=== PATIENT | male | born 1950 ===

== ENCOUNTER 2019-12-04 16:01 | Inpatient (IN) | payer MEDICARE, MEDICAID ==
[~2019-12-04] VITALS: Ht 182.8 cm; Wt 83.4 kg
[2019-12-04] MEDS ORDERED: NALO4SPR NS (16:15)
[2019-12-04] MEDS ORDERED: OXYC1TAB12 PO (16:15)
[2019-12-04] MEDS ORDERED: GLIM1TAB4 PO (16:15)
[2019-12-04] MEDS ORDERED: ZOLP10TA PO (16:15)
[2019-12-04] MEDS ORDERED: ENOX30DI4 SQ (16:15)
[2019-12-04] MEDS ORDERED: LISI10TA2 PO (16:17)
[2019-12-04] MEDS ORDERED: HUM100IN4 SQ (16:17)
--- NOTE | 2019-12-04 16:18 | NUR ---
I ENTERED THE MED REC USING THE [facility] DISCHARGE ORDERS. THERE WAS NO EXT MED HISTORY SHOWING YET BUT I DID CALL THE PHARMACY LISTED AT THE BOTTOM OF THE DISCHARGE ORDERS ([facility] IN [place]) TO FIND OUT ABOUT HIS MEDICATIONS. ON THE INSULIN HIMULIN 70/30 HE HAS NOT FILLED THIS SINCE 07-09-2018. THE LISINOPRIL IS LISTED 10MG ON THE DISCHARGE BUT THE PHARM LAST DISPENSED 5MG ON 07-16-2019 #30. ON THE MED REC I HAVE LEFT THE STRENGTH BLANK ON THE LISINOPRIL AND THE HUMULIN UNKNOWN STRENGTH. I DID GO DOWN TO [facility] AND SPEAK WITH HIS NURSE AND LET HER KNOW OF THE DISCREPANCIES, AND SHE UNDERSTOOD THE ISSUES AND WOULD SPEAK WITH THE PT WHEN HE ARRIVES TO CLARIFY AND UPDATE THE MED REC NEEDED. I LEFT YELLOW TRIANGLES ON THOSE 2 MEDS A REMINDER TO CHECK ON THEM. AFTER THE MEDS ARE CONTINUED I WILL SPEAK WITH THE PT AND UPDATE THE MED REC AND NOTES NEEDED Addendum: 12/06/19 at 1535 by NADINE GARZON [facility] I SPOKE WITH THE PT AND WENT THRU THE EXT MED HISTORY TO COMPLETE THE MED REC THE PT WAS ABLE TO TELL ME WHAT MEDS HE WAS TAKING BEFORE HIS [facility] STAY THE FOLLOWING MEDICATIONS HAVE BEEN REMOVED FROM THE MED REC (THE PT WAS NOT TAKING BEFORE HIS STAY): ENOXAPARIN NALOXONE THE FOLLOWING MEDS HAVE BEEN CHANGED: LISINOPRIL: ON THE DISCHARGE ORDER IS HAS LISINOPRIL 10MG 1 TAB DAILY. ON THE EXT MED HISTORY IT SHOWS LISINOPRIL 5MG 1 TAB DAILY- HOWEVER THE PT SAYS EVERY MORNING HE CHECKS HIS BLOOD PRESSURE AND IF THE DIASTOLIC IS OVER 90 HE WILL TAKE TWO 5 MG TABS TO EQUAL 10MG DAILY (IF BP IS NOT HIGH HE WILL ONLY TAKE 5MG). NOVOLIN 70/30: THE DISCHARGE HAS 25 UNITS BID BUT THE EXT MED HISTORY HAS 50 UNITS BID. THE PT STATES THAT DEPENDING ON HIS BLOOD SUGAR READING HE WILL FLUCTUATE HOW MUCH HE INJECTS. ATORVASTATIN: THIS WAS NOT ON THE DISCHARGE ORDERS BUT SHOWS ON THE EXT MED HISTORY. THIS MED HAS BEEN ADDED TO THE MED REC ALL OTHER MEDICATIONS ARE THE SAME AND NO CHANGES ARE NOTED. I DID UPDATE THE PATIENTS PHARM TO [facility] IN [facility]
--- NOTE | 2019-12-04 16:31 | Progress Note ---
Progress Note DC note [facility]: Diagnosis Closed subtrochanteric fracture of left femur Fall from standing IDDM (insulin dependent diabetes mellitus) Essential hypertension Chronic pain syndrome Resolved Hospital Problems No resolved problems to display. Mario Alberto Torres a 69 y.o.malewho was admitted to [facility] on 12/01/2019for evaluation and management of hip pain. Patient mentioned that he fell from a standing position on his left side and developed sudden onset of left hip pain. He came to [facility] ER for further evaluation. Initial imaging confirmedleft-sided subtrochanteric fracture. He was admitted and orthopedic service was consulted. Patient underwent femur proximal intramedullary nailing. He progressed well after the surgery and then was discharged on 12/03. He was discharged to [facility].He was recommended to be on DVT prophylaxis with Lovenox for 21 days after surgery. Naloxone was prescribed because he was given a prescription for Percocet for pain control as this was the only medicationthat was controlling his pain in the hospital. He will be on Percocet and Ambien as per home medication list, I strongly encouraged him to talk to his primary care physician after discharge and recommended himto stop Ambienasthis medicationregimencan sometimes result in respiratory depression. His hemoglobin at the at the time of admission was 13.3 and was 8.6 at the time of discharge. I discussed this with orthopedic physician and he recommended that based on the type of injury and surgery it took to her, this is an expected drop and patientshouldregain backthe baseline h/h.No need for further work-up at this time per him. He understood instruction and agreed with it.Orthopedic service recommended him to be discharged on Lovenox and Percocet. At the time of discharge he was doing well, baseline mentation, tolerating oral diet well and was working well with PT OT. Patient is to follow-up with PCP and orthopedic clinic after discharge. All the questions were answered to his satisfaction. He is to repeat CBC and CMP to monitor any lab abnormalities if present at the time of discharge. Chronic pain syndrome - back injury HLD (hyperlipidemia) HTN (hypertension) IDDM (insulin dependent diabetes mellitus) PastSurgicalHistory Past Surgical History: Procedure Laterality Date CATARACT EXTRACTION HX APPENDECTOMY Lida wade 69 y.o.malewith left intertrochanteric femur fracture status post left long TFN done 12/02/2019, POD #1. 1. Doing well postoperatively. 2. DVT prophylaxsis with Lovenox. 3. Weight Bearing Status: TTWB LLE. 4. PT/OT for mobility, ROM, gait training and ADLs. Plan discharge to [facility] 5. Pain : Will d/c dilaudid and hydrocodone and start percocet 10/325 and toradol. We will continue to assess his pain. NORIS LESTER DO Dec 04, 2019 16:31
[2019-12-04] MEDS ORDERED: guaiFENesin/CODEINE (ROBITUSSIN AC) 10ML UDC PO PRN (16:45)
[2019-12-04] MEDS ORDERED: ONDANSETRON 4 MG (ZOFRAN) ORAL DISSOLVE TAB PO PRN (16:45)
[2019-12-04] MEDS ORDERED: diphenhydrAMINE 25 MG TAB (BENADRYL) PO PRN (16:45)
[2019-12-04] MEDS ORDERED: CALCIUM CARBONATE 500 MG (TUMS) TAB.CHEW PO PRN (16:45)
[2019-12-04] MEDS ORDERED: DOCUSATE SODIUM 100 MG (COLACE) CAP PO PRN (16:45)
[2019-12-04] MEDS ORDERED: MELATONIN 3 MG TABLET PO PRN (16:45)
[2019-12-04] MEDS ORDERED: FLEET ENEMA ADULT 1 EA BTL PR PRN (16:45)
[2019-12-04] MEDS ORDERED: ALPRAZolam 0.25 MG (XANAX) TAB PO PRN (16:45)
[2019-12-04] MEDS ORDERED: LACTULOSE SYRUP 10GM/15ML (ENULOSE) 30ML UDC PO PRN (16:45)
[2019-12-04] MEDS ORDERED: LOPERAMIDE 2 MG (IMODIUM) TABLET PO PRN (16:45)
[2019-12-04] MEDS ORDERED: NON-FORMULARY MEDICATION 1 EA EA (Zolpidem Tartrate (Ambien) 10 MG) PO PRN (18:00)
[2019-12-04] MEDS ORDERED: DOCUSATE SODIUM 100 MG (COLACE) CAP PO ONE (21:26)
[2019-12-04] MEDS ORDERED: polyethylene glycoL POWDER 17 GM (MIRALAX) PACK ONE (21:27)
[2019-12-04] MEDS ORDERED: SENNA W/DOCUSATE (SENOKOT S) TABLET ONE (21:27)
[2019-12-04] MEDS ORDERED: oxyCODONE ER 15 MG (oxyCONTIN CR) TAB PO ONE (21:27)
[2019-12-04] MEDS ORDERED: ENOXAPARIN 40 MG/0.4 ML (LOVENOX) SYR ONE (21:27)
[2019-12-04 21:30] VITALS: BP 142/69
[2019-12-04] MEDS ORDERED: inSUlin ASPART (NovoLOG) 1 UNIT/0.01 ML (CHARGE PER UNIT) ONE (21:40)
[2019-12-04] MEDS: DOCUSATE SODIUM 100 MG (COLACE) CAP PO SCH (21:49)
[2019-12-04] MEDS: oxyCODONE ER 15 MG (oxyCONTIN CR) TAB PO SCH (21:49)
[2019-12-04] MEDS: SENNA W/DOCUSATE (SENOKOT S) TABLET PO SCH (21:49)
[2019-12-04] MEDS: ENOXAPARIN 40 MG/0.4 ML (LOVENOX) SYR SC SCH (21:50)
[2019-12-04] MEDS: inSUlin ASPART (NovoLOG) 1 UNIT/0.01 ML (CHARGE PER UNIT) SC SCH (21:51)
[2019-12-04] MEDS: polyethylene glycoL POWDER 17 GM (MIRALAX) PACK PO SCH (21:54)
[2019-12-05] MEDS ORDERED: oxyCODONE/APAP 10/325MG (PERCOCET 10) TABLET PO ONE (01:02)
[2019-12-05] MEDS ORDERED: GLIMEPIRIDE 4 MG (AMARYL) TAB ONE (04:59)
[2019-12-05 05:40] VITALS: BP 136/75
[2019-12-05] MEDS: inSUlin ASPART (NovoLOG) 1 UNIT/0.01 ML (CHARGE PER UNIT) SC SCH ×4 (05:43→21:55)
[2019-12-05 06:32] LABS: BASOPHILS % (AUTO) 0 % (0-10); EOSINOPHILS # (AUTO) 0.3 10^3/uL (0.0-0.3); EOSINOPHILS % (AUTO) 5 % (0-10); HEMATOCRIT 23 % (40-54); HEMOGLOBIN 7.8 G/DL (13.3-17.7); LYMPHOCYTES # (AUTO) 1.1 X 10^3 (1.0-4.0); LYMPHOCYTES % (AUTO) 23 % (12-44); MEAN CORPUSCULAR HEMOGLOBIN 32 PG (25-34); MEAN CORPUSCULAR HGB CONC 34 G/DL (32-36); MEAN CORPUSCULAR VOLUME 94 FL (80-99); MEAN PLATELET VOLUME 9.1 FL (7.4-10.4); MONOCYTES # (AUTO) 0.6 X 10^3 (0.0-1.0); MONOCYTES % (AUTO) 11 % (0-12); NEUTROPHILS # (AUTO) 2.9 X 10^3 (1.8-7.8); NEUTROPHILS % (AUTO) 60 % (42-75); PLATELET COUNT 215 10^3/uL (130-400); RED CELL DISTRIBUTION WIDTH 11.8 % (10.0-14.5); WHITE BLOOD COUNT 4.9 10^3/uL (4.3-11.0)
[2019-12-05 06:56] LABS: ALANINE AMINOTRANSFERASE 12 U/L (0-55); ALBUMIN 3.1 GM/DL (3.2-4.5); ALKALINE PHOSPHATASE 65 U/L (40-136); BILIRUBIN,TOTAL 0.8 MG/DL (0.1-1.0); BUN/CREATININE RATIO 30; CALCIUM 8.1 MG/DL (8.5-10.1); CARBON DIOXIDE 21 MMOL/L (21-32); CHLORIDE 106 MMOL/L (98-107); CREATININE SERUM 0.81 MG/DL (0.60-1.30); GFR ESTIMATED > 60; GLUCOSE 73 MG/DL (70-105); POTASSIUM 3.8 MMOL/L (3.6-5.0); SODIUM 136 MMOL/L (135-145); TOTAL PROTEIN 5.3 GM/DL (6.4-8.2)
[2019-12-05] MEDS: GLIMEPIRIDE 1 MG (AMARYL) TAB PO SCH (07:10)
[2019-12-05] MEDS: oxyCODONE/APAP 10/325MG (PERCOCET 10) TABLET PO PRN ×4 (07:11→21:53)
[2019-12-05] MEDS: lisINopril 10 MG (PRINIVIL) TABLET PO SCH (08:32)
[2019-12-05] MEDS: oxyCODONE ER 15 MG (oxyCONTIN CR) TAB PO SCH ×2 (08:32→21:53)
--- NOTE | 2019-12-05 08:46 | PM&R Post Admission Assessment ---
PM&R Date of Visit: Dec 05, 2019 Time of Visit: 10:30 History of Present Illness CC: Debility following left hip fracture HPI: This is a 69yoWM clinic patient of Dr Solis in [place], [place] who presents from [facility] last night at 2130 following a left femur fracture s/p uncomplicated repair. He was placed on Oxycontin 10mg PO BID started last night due to h/o chronic pain narcotic dependent taking Lortab 10/325 QID chronically and remaining on Percocet 10/325 for breakthrough pain. BM last night and was regular. Patient is urinating well without retention. 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 Patient has not had spine surgery in the past since his issues is DJD and is not a surgical candidate. Patient had an episode of orthostatic hypotension today likely from volume shift due to post op acute blood loss anemia since his baseline hgb was 13.9 and currently at 7.8. Patient was placed on Venofer empirically and now the iron level confirmed low at 17. DM is poorly controlled at home on insulin and low dose OHA. HGA1C is pending. Patient appears to have DM and chronic pain wasting syndrome and appears to be chronically ill and thin and poor reserve. Patient is a former smoker but stopped many years ago. DC note [facility]: Diagnosis Closed subtrochanteric fracture of left femur Fall from standing IDDM (insulin dependent diabetes mellitus) Essential hypertension Chronic pain syndrome Resolved Hospital Problems No resolved problems to display. Mario Alberto Torres a 69 y.o.malewho was admitted to [facility] on 12/01/2019for evaluation and management of hip pain. Patient mentioned that he fell from a standing position on his left side and developed sudden onset of left hip pain. He came to [facility] ER for further evaluation. Initial imaging confirmedleft-sided subtrochanteric fracture. He was admitted and orthopedic service was consulted. Patient underwent femur proximal intramedullary nailing. He progressed well after the surgery and then was discharged on 12/03. He was discharged to [facility].He was recommended to be on DVT prophylaxis with Lovenox for 21 days after surgery. Naloxone was prescribed because he was given a prescription for Percocet for pain control as this was the only medicationthat was controlling his pain in the hospital. He will be on Percocet and Ambien as per home medication list, I strongly encouraged him to talk to his primary care physician after discharge and recommended himto stop Ambienasthis medicationregimencan sometimes result in respiratory depression. His hemoglobin at the at the time of admission was 13.3 and was 8.6 at the time of discharge. I discussed this with orthopedic physician and he recommended that based on the type of injury and surgery it took to her, this is an expected drop and patientshouldregain backthe baseline h/h.No need for further work-up at this time per him. He understood instruction and agreed with it.Orthopedic service recommended him to be discharged on Lovenox and Percocet. At the time of discharge he was doing well, baseline mentation, tolerating oral diet well and was working well with PT OT. Patient is to fol low-up with PCP and orthopedic clinic after discharge. All the questions were answered to his satisfaction. He is to repeat CBC and CMP to monitor any lab abnormalities if present at the time of discharge. Chronic pain syndrome - back injury HLD (hyperlipidemia) HTN (hypertension) IDDM (insulin dependent diabetes mellitus) PastSurgicalHistory Past Surgical History: Procedure Laterality Date CATARACT EXTRACTION HX APPENDECTOMY Oscars a 69 y.o.malewith left intertrochanteric femur fracture status post left long TFN done 12/02/2019, POD #1. 1. Doing well postoperatively. 2. DVT prophylaxsis with Lovenox. 3. Weight Bearing Status: TTWB LLE. 4. PT/OT for mobility, ROM, gait training and ADLs. Plan discharge to [facility] 5. Pain : Will d/c dilaudid and hydrocodone and start percocet 10/325 and toradol. We will continue to assess his pain. 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 PM&R Allergy/Meds/Data Review Allergies Coded Allergies: No Known Drug Allergies (Unverified , 12/04/19) Home Medications Scheduled Atorvastatin Calcium (Atorvastatin Calcium), 10 MG PO HS, (Reported) Enoxaparin Sodium (Enoxaparin Sodium), 30 MG SQ Q12H, (Reported) Glimepiride (Glimepiride), 1 MG PO DAILY W/ BREAKFAST, (Reported) Insulin NPH Hum/Reg Insulin Hm (Humulin 70/30 Kwikpen), 25 UNITS SQ BIDAC, (Reported) Lisinopril (Lisinopril), 10 MG PO DAILY, (Reported) Naloxone HCl (Narcan), 1 SPRAY NS UD, (Reported) Scheduled PRN Oxycodone HCl/Acetaminophen (Percocet 10-325 mg Tablet), 1 TAB PO Q6H PRN for PAIN-MODERATE, (Reported) Zolpidem Tartrate (Ambien), 10 MG PO HS PRN for INSOMNIA, (Reported) Current Medications Current Medications Reviewed Laboratory Data Laboratory Tests 12/04/19 21:37: Glucometer 270H 12/05/19 05:30: Glucometer 78 12/05/19 05:32: White Blood Count 4.9, Red Blood Count 2.46L, Hemoglobin 7.8L, Hematocrit 23L, Mean Corpuscular Volume 94, Mean Corpuscular Hemoglobin 32, Mean Corpuscular Hemoglobin Concent 34, Red Cell Distribution Width 11.8, Platelet Count 215, Mean Platelet Volume 9.1, Neutrophils (%) (Auto) 60, Lymphocytes (%) (Auto) 23, Monocytes (%) (Auto) 11, Eosinophils (%) (Auto) 5, Basophils (%) (Auto) 0, Neutrophils # (Auto) 2.9, Lymphocytes # (Auto) 1.1, Monocytes # (Auto) 0.6, Eosinophils # (Auto) 0.3, Basophils # (Auto) 0.0, Sodium Level 136, Potassium Level 3.8, Chloride Level 106, Carbon Dioxide Level 21, Anion Gap 9, Blood Urea Nitrogen 24H, Creatinine 0.81, Estimat Glomerular Filtration Rate > 60, BUN/Creatinine Ratio 30, Glucose Level 73, Calcium Level 8.1L, Corrected Calcium 8.8, Total Bilirubin 0.8, Aspartate Amino Transf (AST/SGOT) 25, Alanine Aminotransferase (ALT/SGPT) 12, Alkaline Phosphatase 65, Total Protein 5.3L, Albumin 3.1L Review of Systems Constitutional: see HPI, weakness EENTM: no symptoms reported Respiratory: no symptoms reported Cardiovascular: no symptoms reported Gastrointestinal: no symptoms reported Genitourinary: no symptoms reported Musculoskeletal: back pain, joint pain Psychiatric/Neurological: No Symptoms Reported All Other Systems Reviewed Negative Unless Noted: Yes Physical Exam Physical Exam Vital Signs Vital Signs - First Documented 12/04/19 21:30 Temp 38.2 Pulse 103 Resp 20 B/P (MAP) 142/69 Pulse Ox 97 O2 Delivery Room Air Capillary Refill : Less Than 3 Seconds Height, Weight, BMI Height: '" Weight: lbs. oz. kg; 24.95 BMI Method: General Appearance: No Apparent Distress, Anxious, Chronically ill, Thin Eyes: Bilateral Eye Normal Inspection, Bilateral Eye PERRL HEENT: PERRL/EOMI, Normal ENT Inspection, Pharynx Normal Neck: Full Range of Motion, Normal Inspection, Non Tender, Supple, Carotid Bruit Respiratory: Chest Non Tender, Lungs Clear, Normal Breath Sounds, No Accessory Muscle Use, No Respiratory Distress Cardiovascular: Regular Rate, Rhythm, No Edema, No Gallop, No JVD, No Murmur, Normal Peripheral Pulses Gastrointestinal: Normal Bowel Sounds, No Organomegaly, No Pulsatile Mass, Non Tender, Soft Back: Normal Inspection, No CVA Tenderness, No Vertebral Tenderness Extremity: Normal Capillary Refill, Normal Inspection, Normal Range of Motion (except left leg from post op pain), Non Tender, No Calf Tenderness, No Pedal Edema Neurologic/Psychiatric: Alert, Oriented x3, No Motor/Sensory Deficits, cpo II- XII Norm as Tested, Depressed Affect Skin: Normal Color, Warm/Dry Lymphatic: No Adenopathy PM&R Medical Assessment & Plan REHAB/MEDICAL ASSESSMENT AND PLAN: REHAB IMPAIRMENT GROUP: Left femur fracture ETIOLOGIC DIAGNOSIS: Left femur fracture The comorbidities that impact the patients function and/or functional outcome by: poor reserve acute on chronic, post op anemia iron def type, thin habitus, flat affect, chronic pain narcotic dependent REHAB PLAN: The patient is being admitted to our comprehensive inpatient rehabilitation facility and can tolerate the intensity of service consisting of at least: 180 minutes of therapy a day, 5 out of 7 days a week Rehab treatment will consist of: PT OT will focus on increasing stamina and amb ulatory skills along with fall prevention in order to return home with The patient/family has a good understanding of our discharge process and will benefit from an interdisciplinary inpatient rehabilitation program. The patient has potential to make improvement and is in need of at least two of the following multidisciplinary therapies including but not limited to physical, occupational, speech, and prosthetics and orthotics. Additionally the patient will need services from respiratory, nutritional services, wound care, psychology, etc. (Customize this to each patient). Given the patients complex condition and risk of further medical complications, rehabilitation services cannot be safely or effectively provided at a lower level of care such as a [facility]. BARRIERS TO DISCHARGE: Poor reserve ESTIMATED LOS: 7 days DISPOSITION: Home RELEVANT CHANGES SINCE PREADMISSION SCREENING: I have compared the patients medical and functional status at the time of the preadmission screening and there are: no changes PROGNOSIS: Good REHABILITATION GOALS: 1. PT OT will focus on increasing stamina and ambulatory skills along with fall prevention in order to return home with All the above goals were reviewed with the patient and he/she is in agreement. By signing this document, I acknowledge that I have personally performed a full physical examination on this patient within 24 hours of admission to this inpatient rehabilitation facility and have determined the patient to be able to tolerate the above course of treatment at an intensive level for a reasonable period of time. I will be completing a detailed individualized Plan of Care for this patient by day #4 of the patients stay based upon the Preadmission Screen, the Post-Admission Evaluation, and the therapy evaluations. Admission Dx/Comorbidities: (1) Closed left femoral fracture ICD Codes: S72.92XA - Unspecified fracture of left femur, initial encounter for closed fracture (2) Frailty ICD Codes: R54 - Age-related physical debility (3) Flat affect ICD Codes: R45.89 - Other symptoms and signs involving emotional state (4) Chronic pain ICD Codes: G89.29 - Other chronic pain (5) Narcotic dependence ICD Codes: F11.20 - Opioid dependence, uncomplicated (6) Diabetes mellitus with insulin therapy ICD Codes: E11.9 - Type 2 diabetes mellitus without complications; Z79.4 - nursing home (current) use of insulin (7) Thin build ICD Codes: R68.89 - Other general symptoms and signs (8) Orthostasis ICD Codes: I95.1 - Orthostatic hypotension (9) Postoperative anemia due to acute blood loss ICD Codes: D62 - Acute posthemorrhagic anemia (10) Iron deficiency ICD Codes: E61.1 - Iron deficiency Assessment/Plan Assessment and Plan Assess & Plan/Chief Complaint Assessment: Left femur fracture POD # 3 Post op anemia from acute blood loss Orthostatic hypotension requiring 500cc bolus IVF NS DM insulin dependency Chronic pain Narcotic dependent Chronic DJD back pain Thin build Poor reserve Chronic debility Frail status Poor nutrition Plan: IVF bolus Monitor labs Venofer Monitor diabetes IRF protocol SYDNEY with NORIS Pastor DO Dec 05, 2019 08:46
[2019-12-05] MEDS: polyethylene glycoL POWDER 17 GM (MIRALAX) PACK PO SCH ×2 (09:00→21:55)
[2019-12-05] MEDS: DOCUSATE SODIUM 100 MG (COLACE) CAP PO SCH ×2 (09:00→21:54)
[2019-12-05] MEDS: SENNA W/DOCUSATE (SENOKOT S) TABLET PO SCH ×2 (09:00→21:54)
[2019-12-05] MEDS ORDERED: ATOR10TA66 PO (09:38)
[2019-12-05] MEDS: IRON SUCROSE 200 MG/10 ML (VENOFER) VIAL IV SCH (10:18)
--- NOTE | 2019-12-05 10:28 | Physical Therapy Evaluation ---
PT Evaluation-General Medical Diagnosis Admission Date Dec 04, 2019 at 21:17 Medical Diagnosis: left IM nail Onset Date: Dec 04, 2019 Therapy Diagnosis Therapy Diagnosis: impaired mobility, strength, endurance, ROM Precautions Precautions/Isolations: Fall Prevention, Standard Precautions Weight Bear Status Left Lower Extremity: Left Touch Toe Bearing Referral Physician: Rocío Ashley DO Reason for Referral: Evaluation/Treatment Medical History Pertinent Medical History: Arthritis, DM Reviewed History: Yes Social History Home: Single Level Current Living Status: Spouse Entry Into Home: Level Entry Prior Prior Level of Function SCALE: Activities may be completed with or without assistive devices. 4-Yxmugozkoc-hnybhtr completes the activity by him/herself with no assistance from a helper. 5-Set-up or Clean-up Assistance-helper sets up or cleans up; patient completes activity. [place] assists only prior to or following the activity. 4-Supervision or Touching Assistance-helper provides verbal cues and/or touching/steadying and/or contact guard assistance as patient completes activity. Assistance may be provided throughout the activity or intermittently. 3-Partial/Moderate Assistance-helper does LESS THAN HALF the effort. [place] lifts, holds or supports trunk or limbs, but provides less than half the effort. 2-Substantial/Maximal Assistance-helper does MORE THAN HALF the effort. [place] lifts or holds trunk or limbs and provides more than half the effort. 2-Vheiqyxgj-rkoaup does ALL the effort. Patient does none of the effort to complete the activity. Or, the assistance of 2 or more helpers is required for the patient to complete the activity. If activity was not attempted, code reason: 7-Patient Refused. 9-Not Applicable-not attempted and the patient did not perform the activity before the current illness, exacerbation or injury. 10-Not Attempted due to Environmental Limitations-(lack of equipment, weather restraints, etc.). 88-Not Attempted due to Medical Conditions or Safety Concerns. Bed Mobility: 6 Transfers (B,C,W/C): 6 Gait: 6 Indoor Mobility (Ambulation): Independent Patient states he was using a SPC occasionally before the fall. PT Evaluation-Current Subjective Patient sitting EOB pre tx, just got done with OT, has 10/10 pain in left hip, states he has already had pain meds. Patient is unmotivated, would like to postpone PT. Pt/Family Goals to be independent at home Objective Patient Orientation: Person, Place, Situation ROM/Strength ROM Lower Extremities limited LLE Sensory Vision: Wears Glasses Hearing: Functional Sensation Right Lower Extremit: Intact Sensation Left Lower Extremity: Intact Transfers Roll Left to Right (QC): 1 Sit to Lying (QC): 1 Lying to Sitting/Side of Bed(Q: 1 Sit to Stand (QC): 2 Chair/Syp-vx-Zulna Xfer(QC): 2 Toilet Transfer (QC): 10 Car Transfer (QC): 2 Patient is max assist of 2 for bed mobility and supine <-> sit, sit <-> stand max assist, transfers max assist, car transfer max assist. Patient needs cues for hand placement and positioning, extra time due to pain and fatigue. Gait Does the Patient Walk?: No and Walking Goal IS indicated Walk 10 feet (QC): 88 Walk 50 ft with 2 Turns(QC): 88 Walk 150 ft (QC): 88 Walking 10ft/uneven surface-QC: 88 Wheelchair Training Does the Pt Use a Wheelchair?: Yes Distance: 150'x2 Wheel 50 ft with 2 turns (QC): 4 Wheel 150 ft (QC): 4 Type of Wheelchair: Manual Patient can propel a manual WC 150' with SBA, cues for obstacles. Patient needs extra time, needs frequent rest breaks, very slow. Stairs 1 Step (curb) (QC): 88 4 Steps (QC): 88 12 Steps (QC): 88 Balance Sitting Static: Normal Sitting Dynamic: Fair Standing Static: Poor Standing Dynamic: Poor Picking up an Object (QC): 88 Treatment Patient stood in the parallel bars x2 for about 30 seconds each time. Assessment/Needs Patient has impaired mobility, strength, endurance, balance, ROM. Patient had a blood pressure of ~ 65/35 during treatment, got back to bed with feet elevat ed, nursing in room when PT left. Patient had nurse call, phone, tray, all needs met. Rehab Potential: Guarded Post Rehab Potential-Barriers: motivation, patient states he has moments of weakness for no reason PT Short Term Goals Short Term Goals Time Frame: Dec 12, 2019 Roll Left & Right: 3 Sit to lyin Lying to sitting on side of be: 3 Sit to stand: 3 Chair/qaf-ui-mzmkk transfer: 3 Walk 10 feet: 3 PT Glacing Machine Tender Goals Usp Goals PT Glacing Machine Tender Goals Time Frame: Dec 26, 2019 Roll Left & Right (QC): 4 Sit to Lying (QC): 3 (German) Lying-Sitting on Side/Bed(QC): 3 (German) Sit to Stand (QC): 3 (German) Chair/Ajd-nu-Egshx Xfer(QC): 3 (German) Toilet Transfer (QC): 3 Car Transfer (QC): 3 (German) Does the Patient Walk: No and Walking Goal IS indicated Walk 10 feet (QC): 3 (German) Walk 50ft with 2 Turns (QC): 3 (German) Walk 150 ft (QC): 88 Walking 10ft on Uneven Surface: 88 1 Step (curb) (QC): 88 4 Steps (QC): 88 12 Steps (QC): 88 Picking up an Object (QC): 88 Does the Pt use WC or Scooter?: Yes Wheel 50 feet with 2 turns (QC: 6 Type: Manual Wheel 150 feet: 6 Type: Manual PT Plan Problem List Problem List: Activity Tolerance, Functional Strength, Safety, Balance, Gait, Transfer, Bed Mobility, ROM Treatment/Plan Treatment Plan: Continue Plan of Care Treatment Plan: Bed Mobility, Education, Functional Activity Swetha, Functional Strength, Group Therapy, Gait, Safety, Therapeutic Exercise, Transfers Treatment Duration: Dec 26, 2019 Frequency: At least 5 of 7 days/Wk (IRF) Estimated Hrs Per Day: 1.5 hours per day Patient and/or Family Agrees t: Yes Safety Risks/Education Patient Education: Transfer Techniques, Reviewed Precautions, Correct Positioning, W/C Management, Safety Issues Teaching Recipient: Patient Teaching Methods: Demonstration, Discussion Response to Teaching: Reinforcement Needed Patient aware of his weight bearing restrictions and can repeat them to therapist. Discharge Recommendations Plan Patient will perform bed mobility and transfer training, balance and endurance training, functional strengthening, stair training, gait training, and education, to improve functional mobility and independence at home. Therapy Discharge Recommendati: Other, See Comments (possibly NH), Home & Family Time/GCodes Time In: 0930 Time Out: 1030 Total Billed Treatment Time: 60 Total Billed Treatment 1 visit EVM 30' FA 30' MARYANNE PHILLIPS PT Dec 05, 2019 10:27
--- NOTE | 2019-12-05 10:51 | NUR ---
CM/SS ADMISSION Attempted to have initial visit with patient. He had just been seated in wheelchair by PT staff, he appeared weak and ill and stated he was 'just not doing well.' Interview deferred until patient condition assessed by physician and stability is confirmed.
[2019-12-05] MEDS ORDERED: NS IV 500 ML 500 ML IV SCH (11:30)
--- NOTE | 2019-12-05 13:27 | NUR ---
RD ASSESSMENT PMHx: HLP; HTN; DM PT INTERACTION: Pt was awake and pleasant during nutrition assessment. Pt states current appetite is poor, but it had been better prior to admit. Note PO intake of 75% x1meal, per chart review. Pt states following a regular diet at home and has no issues with chewing/swallowing food. Pt states some recent issues with nausea/vomiting at this time. Pt states no recent issues with constipation/diarrhea, and that his last BM was 4/. Note pt currently on bowel regimen of Colace BID; Senna BID; and Miralax BID, per chart review. Pt states some recent wt loss, but that his weight is coming back up. Pt did not elaborate on amount lost/timeframe. Note unable to determine recent wt hx, per chart review. Pt states current DM management as "I don't keep it very good." Note unable to determine recent HbA1c, per chart review. ABNORMAL NUTRITION-RELATED LAB VALUES LOW: Ca 8.1; Pro 5.3; alb 3.1 HIGH: BUN 24 Est. kcal needs: 4360-8447 kcal | 25-30 kcal/kg Est. Pro needs: 67-83 g Pro | 0.8-1.0 g Pro/kg PES STATEMENT: Inadequate oral intake (NI-2.1) related to loss of appetite | nausea | vomiting as evidenced by pt interview INTERVENTION: Continue with current diet order of CHO 75g/m 3snack diet. Pt may benefit from more aggressive CHO restriction if blood glucose levels become elevated. Pt may benefit from nutrition supplementation if PO intake declines. Will attempt dietary education (CHO Counting) with pt prior to discharge. Will continue to follow and reassess as pt needs, intake, and status change. MONITOR/EVALUATE: PO Intake; Plan of Care; Hydration Status; Weight Status; Lab Values Osei Cagle, MS, RD, LD
--- NOTE | 2019-12-05 13:53 | ST Cognitive Linguistic Eval ---
Speech Evaluation-General Medical Diagnosis left IM nail Onset Date: Dec 05, 2019 Therapy Diagnosis Therapy Diagnosis: Cogitive-communication Referral Referring Physician: Dr. Ashley Medical History Reviewed History: Yes Social History Current Living Status: Spouse Speech PLF-Current Status Prior Level of Function Patient lived at home with his in [place] where he was independent for his daily needs. Subjective Patient was cooperative with the cognitive assessment. Language Eval: Auditory Comprehends Simple Yes/No Ques: Functional Indent/Objects Multiple [place]: Functional Ident/Pics in Multiple [place]: Functional Follows 1-Step Commands: Functional Follows Complex Directions: Functional Follows General Conversations: Functional Language Eval: Verbal Language Completes Spontaneous Greeting: Functional Produces Auto, Serial Info: Functional Imitates Simple Words/Phrases: Functional Word Finding: Mild Requests Basic Needs: Functional States Basic Personal Info: Functional Expresses Complex Ideas: Mild Objective Cognitive Domain Attention: WNL Memory: Mild Problem Solving: Functional Executive Functions: WNL Visuospatial Skills: WNL Composite Severity Rating: WNL Clock Drawing Severity Rating: WNL Objective Formal/Standardized Tests [facility] Status ([facility]) Results 28/30, within normal range of function Oral Motor/Speech Production Within Normal Limits Impression Patient is a 69 year old man who was admitted to the ARU s/p hip fracture. Patricia vargas was given the UMS at bedside with a score of 28/30 obtained. Patient did require encouragement to complete the assessment. The patient does not require further ST services at this time. Speech Patient Assess Expression of Ideas/Wants: Expression (4) Understanding Verbal Content: Understands (4) Brief Interview-Mental Status: Yes Repetition of Three Words: Three (3) Temporal Orientation: Year: Correct (3) Temporal Orientation: Month: Accurate within 5 days(2) Temporal Orientation: Day: Correct (1) Recall : Wear to say "Sock": Yes, no cue required (2) Recall : Color: Yes, after cueing (1) Recall : Bed: Yes,after cueing (1) Memory/Recall Ability: Current season, That he or she is in a hsp/hsp unit Speech-Plan Patient/Family Goals Patient/Family Goals: Patient plans on returning home where he lives with his . Treatment Plan Speech Therapy Treatment Plan: Discontinue ST Treatment Duration: Dec 05, 2019 Frequency: 1 time per week Estimated Hrs Per Day: .25 hour per day Rehab Potential: Guarded Barriers to Learning: None identified Pt/Family Agrees to Plan: Yes Safety Risks/Education Teaching Recipient: Patient Teaching Methods: Discussion Response to Teaching: Verbalize Understanding Education Topics Provided: Safety within his room and communication of needs/wants Time Speech Therapy Time In: 11:00 Speech Therapy Time Out: 11:30 Total Billed Time: 30 Billed Treatment Time 1, JEAN CARLOSNDKOREYP FRANKLIN Asencio Dec 05, 2019 13:53
--- NOTE | 2019-12-05 13:56 | Physical Therapy Daily Note ---
PT Daily Note-Current Subjective Patient in bed pre tx, agrees to PT, has 10/10 pain in left hip, states he has already had pain meds, will be co-treating with OT due to poor patient mobility, strength, endurance, pain, the need to coordinate UE and LE during activity. Appearance Patient in bed post tx with nurse call, phone, tray, all needs met, legs elevated. Mental Status Patient Orientation: Normal For Age Transfers SCALE: Activities may be completed with or without assistive devices. 5-Tklyhhahbx-maalznj completes the activity by him/herself with no assistance from a helper. 5-Set-up or Clean-up Assistance-helper sets up or cleans up; patient completes activity. [place] assists only prior to or following the activity. 4-Supervision or Touching Assistance-helper provides verbal cues and/or touching/steadying and/or contact guard assistance as patient completes activity. Assistance may be provided throughout the activity or intermittently. 3-Partial/Moderate Assistance-helper does LESS THAN HALF the effort. [place] lifts, holds or supports trunk or limbs, but provides less than half the effort. 2-Substantial/Maximal Assistance-helper does MORE THAN HALF the effort. [place] lifts or holds trunk or limbs and provides more than half the effort. 9-Tepljshdn-itqjow does ALL the effort. Patient does none of the effort to complete the activity. Or, the assistance of 2 or more helpers is required for the patient to complete the activity. If activity was not attempted, code reason: 7-Patient Refused. 9-Not Applicable-not attempted and the patient did not perform the activity before the current illness, exacerbation or injury. 10-Not Attempted due to Environmental Limitations-(lack of equipment, weather restraints, etc.). 88-Not Attempted due to Medical Conditions or Safety Concerns. Roll Left & Right (QC): 3 Sit to Lying (QC): 2 Lying to Sitting/Side of Bed(Q: 3 Sit to Stand (QC): 3 Patient stood twice for a few minutes each time. Patient cues for proper positioning. Weight Bearing Left Lower Extremity: Left Touch Toe Bearing Gait Training Patient did take a few small steps toward the head of the bed. He seems to be able to maintain his TTWB on the left leg. Exercises Seated Therapy Exercises: Ankle pumps, Long arc quads Seated Reps: 20 seated trunk rotation ROM, UE elevation Treatments ROM, bed mobility, standing, ambulation Assessment Current Status: Fair Progress Improved blood pressure, laying down 146/70, sitting 122/68, again sitting after standing once 116/67. PT Short Term Goals Short Term Goals Time Frame: Dec 12, 2019 Roll Left & Right: 3 Sit to lyin Lying to sitting on side of be: 3 Sit to stand: 3 Chair/fhu-rq-ddskl transfer: 3 Walk 10 feet: 3 PT Supervisor [employer] Production Goals Intermediate Goals PT Intermediate Goals Time Frame: Dec 26, 2019 Roll Left & Right (QC): 4 Sit to Lying (QC): 3 (German) Lying-Sitting on Side/Bed(QC): 3 (German) Sit to Stand (QC): 3 (German) Chair/Hdn-ha-[place] Xfer(QC): 3 ([place]ran) Toilet Transfer (QC): 3 Car Transfer (QC): 3 (German) Does the Patient Walk: No and Walking Goal IS indicated Walk 10 feet (QC): 3 (German) Walk 50ft with 2 Turns (QC): 3 (German) Walk 150 ft (QC): 88 Walking 10ft on Uneven Surface: 88 1 Step (curb) (QC): 88 4 Steps (QC): 88 12 Steps (QC): 88 Picking up an Object (QC): 88 Does the Pt use WC or Scooter?: Yes Wheel 50 feet with 2 turns (QC: 6 Type: Manual Wheel 150 feet: 6 Type: Manual PT Plan Problem List Problem List: Activity Tolerance, Functional Strength, Safety, Balance, Gait, Transfer, Bed Mobility, ROM Treatment/Plan Treatment Plan: Continue Plan of Care Treatment Plan: Bed Mobility, Education, Functional Activity Swetha, Functional Strength, Group Therapy, Gait, Safety, Therapeutic Exercise, Transfers Treatment Duration: Dec 26, 2019 Frequency: At least 5 of 7 days/Wk (IRF) Estimated Hrs Per Day: 1.5 hours per day Patient and/or Family Agrees t: Yes Safety Risks/Education Patient Education: Gait Training, Transfer Techniques, Correct Positioning, Safety Issues Teaching Recipient: Patient Teaching Methods: Demonstration, Discussion Response to Teaching: Reinforcement Needed Time/GCodes Time In: 1300 Time Out: 1345 Total Billed Treatment Time: 45 Total Billed Treatment 1 visit FA 45' Co-treated with OT for 45'. PT worked on bed mobility and transfers, standing, ambulation, LE exercise, OT assisted with bed mobility and standing, UE positioning, UE and trunk ROM. MARYANNE PHILLIPS PT Dec 05, 2019 13:56
--- NOTE | 2019-12-05 14:49 | Physical Therapy Daily Note ---
PT Daily Note-Current Subjective Pt agreeable. Pain rated 8/10 (L) hip and leg. Mental Status Patient Orientation: Person, Place, Situation Transfers SCALE: Activities may be completed with or without assistive devices. 2-Pckhzyglyq-pvauuhw completes the activity by him/herself with no assistance from a helper. 5-Set-up or Clean-up Assistance-helper sets up or cleans up; patient completes activity. [place] assists only prior to or following the activity. 4-Supervision or Touching Assistance-helper provides verbal cues and/or faisal amarilis/steadying and/or contact guard assistance as patient completes activity. Assistance may be provided throughout the activity or intermittently. 3-Partial/Moderate Assistance-helper does LESS THAN HALF the effort. [place] lifts, holds or supports trunk or limbs, but provides less than half the effort. 2-Substantial/Maximal Assistance-helper does MORE THAN HALF the effort. [place] lifts or holds trunk or limbs and provides more than half the effort. 4-Orxidohjw-jqebnp does ALL the effort. Patient does none of the effort to complete the activity. Or, the assistance of 2 or more helpers is required for the patient to complete the activity. If activity was not attempted, code reason: 7-Patient Refused. 9-Not Applicable-not attempted and the patient did not perform the activity before the current illness, exacerbation or injury. 10-Not Attempted due to Environmental Limitations-(lack of equipment, weather restraints, etc.). 88-Not Attempted due to Medical Conditions or Safety Concerns. Weight Bearing Left Lower Extremity: Left Touch Toe Bearing Exercises Supine Ex: LE Protocol Supine Reps: 15 Treatments Pt seen for LE strengthening in supine. Pt required max A for all (L) LE ther ex due to pain level and weakness. Pt muscle quivering during ther ex. Assessment Current Status: Poor Progress Pt appears apprehensive and guarded with all ther ex. Pt radha ex fair with max A. Pt limited by pain and weakness. Pt would benefit from continued strengthening to restore functional mobility. PT Short Term Goals Short Term Goals Time Frame: Dec 12, 2019 Roll Left & Right: 3 Sit to lyin Lying to sitting on side of be: 3 Sit to stand: 3 Chair/ogg-pi-qihsb transfer: 3 Walk 10 feet: 3 PT Snf Goals Snf Goals PT Software Test Engineer Goals Time Frame: Dec 26, 2019 Roll Left & Right (QC): 4 Sit to Lying (QC): 3 (German) Lying-Sitting on Side/Bed(QC): 3 (German) Sit to Stand (QC): 3 (German) Chair/Rqf-on-Bvfak Xfer(QC): 3 (German) Toilet Transfer (QC): 3 Car Transfer (QC): 3 (German) Does the Patient Walk: No and Walking Goal IS indicated Walk 10 feet (QC): 3 (German) Walk 50ft with 2 Turns (QC): 3 (German) Walk 150 ft (QC): 88 Walking 10ft on Uneven Surface: 88 1 Step (curb) (QC): 88 4 Steps (QC): 88 12 Steps (QC): 88 Picking up an Object (QC): 88 Does the Pt use WC or Scooter?: Yes Wheel 50 feet with 2 turns (QC: 6 Type: Manual Wheel 150 feet: 6 Type: Manual PT Plan Treatment/Plan Treatment Plan: Continue Plan of Care Treatment Plan: Bed Mobility, Education, Functional Activity Swetha, Functional Strength, Group Therapy, Gait, Safety, Therapeutic Exercise, Transfers Treatment Duration: Dec 26, 2019 Frequency: At least 5 of 7 days/Wk (IRF) Estimated Hrs Per Day: 1.5 hours per day Patient and/or Family Agrees t: Yes Time/GCodes Time In: 220 Time Out: 240 Total Billed Treatment Time: 20 Total Billed Treatment 1, ther ex 20' GERMAIN BO CPTA Dec 05, 2019 14:49
--- NOTE | 2019-12-05 15:20 | Occupational Therapy Eval ---
OT Evaluation-General/PLF Medical Diagnosis Admission Date Dec 04, 2019 at 21:17 Medical Diagnosis: left IM nail Onset Date: Dec 05, 2019 Therapy Diagnosis Therapy Diagnosis: Weakness, Decreased ADL skills Precautions Precautions/Isolations: Fall Prevention, Standard Precautions Weight Bear Status Weight Bearing Restriction: Touch Toe Bearing Referral Physician: Rocío Ashley DO Referral Reason: Activity Tolerance, Self Care, Evaluation/Treatment, Strengthening/ROM Medical History Pertinent Medical History: Arthritis, DM Additional Medical History Cataract extraction Current History Pt. fell at home. Fx left femur. Sustained proximal intramedullary nail. Reviewed History: Yes Social History Home: Single Level Current Living Status: Spouse Entry Into Home: Level Entry ADL-Prior Level of Function SCALE: Activities may be completed with or without assistive devices. 6-Kaqxpnyeeo-bnpkyfx completes the activity by him/herself with no assistance from a helper. 5-Set-up or Clean-up Assistance-helper sets up or cleans up; patient completes activity. [place] assists only prior to or following the activity. 4-Supervision or Touching Assistance-helper provides verbal cues and/or touching/steadying and/or contact guard assistance as patient completes activity. Assistance may be provided throughout the activity or intermittently. 3-Partial/Moderate Assistance-helper does LESS THAN HALF the effort. [place] lifts, holds or supports trunk or limbs, but provides less than half the effort. 2-Substantial/Maximal Assistance-helper does MORE THAN HALF the effort. [place] lifts or holds trunk or limbs and provides more than half the effort. 7-Pabbwptmu-iebbxp does ALL the effort. Patient does none of the effort to complete the activity. Or, the assistance of 2 or more helpers is required for the patient to complete the activity. If activity was not attempted, code reason: 7-Patient Refused. 9-Not Applicable-not attempted and the patient did not perform the activity before the current illness, exacerbation or injury. 10-Not Attempted due to Environmental Limitations-(lack of equipment, weather restraints, etc.). 88-Not Attempted due to Medical Conditions or Safety Concerns. ADL PLOF Comments Pt. states that he is normally independent with daily skills. Walks 1-2 miles per day. Uses a cane during walks. Self Care: Independent Functional Cognition: Independent DME/Equipment: Tub/Shower DME/Equipment Comments Pt. has a cane. States he has a walker but it is old and "not good." Occupation: Retired national van truck driver Drive Self: Yes OT Current Status Subjective Pt. reported 10/10 pain in left hip. Pt. had pain medication. Nursing aware. OT attempted to make him more comfortable with positioning. Appearance Pt. in bed when OT entered room. Pt. states "not good" when OT asked how he was. Mental Status/Objective Patient Orientation: Person, Place, Time, Situation Current Upper Extremity ROM WFL ADL-Treatment Eating (QC): 5 (per report) Oral Hygiene (QC): 5 (Set up seated at side of bed.) Shower/Bathe Self (QC): 2 (Pt. able to wash upper body with SBA/CGA. Increased time noted. Stood with max assist and OT able to wash rear ela area. Pt. did not allow for rest of legs to be washed due to pain. Pt. would be dependent with this task.) Upper Body Dressing (QC): 4 (SBA) Lower Body Dressing (QC): 1 (Assessment would be that pt. would be dependent. Pt. required max assist to pull down/up pants and brief in stance. Did not allow for rest of pants to be pulled down.) On/Off Footwear (QC): 1 Toileting Hygiene (QC): 1 Other Treatments Pt. is very guarded and demonstrates increased pain levels with any movement. Requires increased time and encouragement to participate. Max assist supine- sit. OT assisted pt. to stance x 2 with bed elevated and walker in place. Max assist to stand. Pt. unable to tolerate standing very long. Pt. sat on side of bed to complete grooming tasks. PT came in at this time. All needs met. Education OT Patient Education: Correct positioning, Modified ADL techniques, Progress toward Goal/Update tx plan, Purpose of tx/functional activities, Reviewed precautions, Rehab process, Transfer techniques Teaching Recipient: Patient Teaching Methods: Demonstration, Discussion Response to Teaching: Verbalize Understanding, Return Demonstration OT Short Term Goals Short Term Goals Time Frame: Dec 19, 2019 Eatin Oral hygiene: 5 Toileting hygiene: 3 Shower/bathe self: 3 Upper body dressin Lower body dressin Putting on/taking off footwear: 3 OT Summer Babysitter Goals Intermediate Goals Time Frame: Jan 02, 2020 Eating (QC): 6 Oral Hygiene (QC): 5 Toileting Hygiene (QC): 6 Shower/Bathe Self (QC): 5 Upper Body Dressing (QC): 5 Lower Body Dressing (QC): 5 On/Off Footwear (QC): 5 Additional Goals: 1-Demonstrate ADL Tasks, 2-Verbalize Understanding, 3- ImproveStrength/Swetha 1=Demonstrate adherence to instructed precautions during ADL tasks. 2=Patient will verbalize/demonstrate understanding of assistive devices/modifications for ADL. 3=Patient will improve strength/tolerance for activity to enable patient to perform ADL's. OT Education/Plan Problem List/Assessment Assessment: Decreased Activ Tolerance, Dependent Transfers, Impaired Bed Mobility, Impaired Funct Balance, Impaired I ADL's, Impaired Self-Care Skills Discharge Recommendations Plan/Recommendations: Continue POC Comment Equipment needs and discharge location to be determined. Treatment Plan/Plan of Care Treatment,Training & Education: Yes Patient would benefit from OT for education, treatment and training to promote independence in ADL's, mobility, safety and/or upper extremity function for ADL's. Plan of Care: ADL Retraining, Functional Mobility, Group Exercise/Act as Ind, UE Funct Exercise/Act Treatment Duration: Jan 02, 2020 Frequency: At least 5 of 7 days/Wk (IRF) Estimated Hrs Per Day: 1.5 hours per day Agreement: Yes Rehab Potential: Fair Time/GCodes Start Time: 08:30 Stop Time: 09:30 Total Time Billed (hr/min): 60 Billed Treatment Time 1, EVH x 15minutes, ADL x 45minutes CIRA STERN OT Dec 05, 2019 15:20
--- NOTE | 2019-12-05 15:23 | Occupational Ther Daily Note ---
OT Current Status-Daily Note Subjective Pt seen in bed post-PT session. Pt agreeable to OT tx session. Pt states L hip pain in rest and in motion. Pt denies OOB, but agrees to bed ex/ ADL education. Mental Status/Objective Patient Orientation: Person, Place, Situation ADL-Treatment Therapy Code Descriptions/Definitions Functional [place] Measure: 0=Not Assessed/NA 4=Minimal Assistance 1=Total Assistance 5=Supervision or Setup 2=Maximal Assistance 6=Modified [place] 3=Moderate Assistance 7=Complete IndependenceSCALE: Activities may be completed with or without assistive devices. 9-Ptggnyqekg-xxpdqwy completes the activity by him/herself with no assistance from a helper. 5-Set-up or Clean-up Assistance-helper sets up or cleans up; patient completes activity. [place] assists only prior to or following the activity. 4-Supervision or Touching Assistance-helper provides verbal cues and/or touching/steadying and/or contact guard assistance as patient completes activity. Assistance may be provided throughout the activity or intermittently. 3-Partial/Moderate Assistance-helper does LESS THAN HALF the effort. [place] lifts, holds or supports trunk or limbs, but provides less than half the effort. 2-Substantial/Maximal Assistance-helper does MORE THAN HALF the effort. [place] lifts or holds trunk or limbs and provides more than half the effort. 5-Xyuglkbqr-dqmchl does ALL the effort. Patient does none of the effort to complete the activity. Or, the assistance of 2 or more helpers is required for the patient to complete the activity. If activity was not attempted, code reason: 7-Patient Refused. 9-Not Applicable-not attempted and the patient did not perform the activity before the current illness, exacerbation or injury. 10-Not Attempted due to Environmental Limitations-(lack of equipment, weather restraints, etc.). 88-Not Attempted due to Medical Conditions or Safety Concerns. Other Treatment Pt states hx and how pt fell. Pt states he utilizes medication for back pain management, denies utilizing other items for pain. Pt educated on brain plasticity and dangers of focusing on pain. Pt educated on diaphragmatic breathing techniques and benefits for BP, L LE edema, and pain management. Pt return demonstrates 5x. Pt educated on light touch stimulation for pain management, pt states understanding. Pt again educated on increasing movement to decrease pain, increase ROM, increase strength; pt educated to complete small movements multiple times per TV show to continue motion through LEs. Pt educated on use of AE for LB dressing tasks. Pt able to state purpose of each item post- education. Pt doffs L sock in bed with min A for LE flexion (use of dressing stick). Pt then educated on sock aide and return demonstrates ability to don sock with mod A for threading sock and lifting LE to clear bed. Pt states his BP was low this am, pt states difficulty pushing w/c, saying he "ran out of umph." Pt educated on continuation of diaphragmatic breathing for BP management and encouragement of LE edema reduction. Pt denies additional ADLs, all needs met, call light in reach, pt left in bed. Education OT Patient Education: Correct positioning, Modified ADL techniques, Safety issues, Use of adapted equipment Teaching Recipient: Patient Teaching Methods: Demonstration, Discussion Response to Teaching: Verbalize Understanding, Return Demonstration, Reinforcement Needed OT Forestry Aid Technician Goals Skilled Nursing Goals Eating (QC): 6 Oral Hygiene (QC): 6 Toileting Hygiene (QC): 6 Shower/Bathe Self (QC): 6 Upper Body Dressing (QC): 6 Lower Body Dressing (QC): 6 On/Off Footwear (QC): 6 1=Demonstrate adherence to instructed precautions during ADL tasks. 2=Patient will verbalize/demonstrate understanding of assistive devices/modifications for ADL. 3=Patient will improve strength/tolerance for activity to enable patient to perform ADL's. OT Education/Plan Problem List/Assessment Assessment: Decreased Activ Tolerance, Dependent Transfers, Edema, Impaired Bed Mobility, Impaired I ADL's, Impaired Self-Care Skills Discharge Recommendations Plan/Recommendations: Continue POC Treatment Plan/Plan of Care Treatment,Training & Education: Yes Patient would benefit from OT for education, treatment and training to promote independence in ADL's, mobility, safety and/or upper extremity function for ADL's. Plan of Care: ADL Retraining, Functional Mobility, Group Exercise/Act as Ind, UE Funct Exercise/Act Treatment Duration: Dec 19, 2019 Frequency: At least 5 of 7 days/Wk (IRF) Estimated Hrs Per Day: 1.5 hours per day Agreement: Yes Rehab Potential: Guarded Time/GCodes Start Time: 14:40 Stop Time: 15:15 Total Time Billed (hr/min): 35 Billed Treatment Time 1, ADL 2 (35) DALLAS COLEMAN OTR Dec 05, 2019 15:23
--- NOTE | 2019-12-05 15:31 | Occupational Ther Daily Note ---
OT Current Status-Daily Note Subjective Pt. reports pain but does not state pain level. Pt. has already had his pain medication. Appearance Pt. in bed with blankets up to chin. Agrees to work with therapy. Mental Status/Objective Patient Orientation: Person, Place, Time, Situation ADL-Treatment Therapy Code Descriptions/Definitions Functional [place] Measure: 0=Not Assessed/NA 4=Minimal Assistance 1=Total Assistance 5=Supervision or Setup 2=Maximal Assistance 6=Modified [place] 3=Moderate Assistance 7=Complete IndependenceSCALE: Activities may be completed with or without assistive devices. 2-Ubtrwvnpsd-sgvzttx completes the activity by him/herself with no assistance from a helper. 5-Set-up or Clean-up Assistance-helper sets up or cleans up; patient completes activity. [place] assists only prior to or following the activity. 4-Supervision or Touching Assistance-helper provides verbal cues and/or touching/steadying and/or contact guard assistance as patient completes activity. Assistance may be provided throughout the activity or intermittently. 3-Partial/Moderate Assistance-helper does LESS THAN HALF the effort. [place] lifts, holds or supports trunk or limbs, but provides less than half the effort. 2-Substantial/Maximal Assistance-helper does MORE THAN HALF the effort. [place] lifts or holds trunk or limbs and provides more than half the effort. 0-Iyaoxjncs-qulrov does ALL the effort. Patient does none of the effort to complete the activity. Or, the assistance of 2 or more helpers is required for the patient to complete the activity. If activity was not attempted, code reason: 7-Patient Refused. 9-Not Applicable-not attempted and the patient did not perform the activity before the current illness, exacerbation or injury. 10-Not Attempted due to Environmental Limitations-(lack of equipment, weather restraints, etc.). 88-Not Attempted due to Medical Conditions or Safety Concerns. Other Treatment PT/OT co-treated due to level of skilled care needed. Pt. transferred supine- sit with max assist and increased time. While seated on side of bed, pt. stood x 2 with mod x 1-2. Encouraged to take side steps and steps back toward bed. Pt. unable to lift left LE very well to clear foot. Not bearing weight but unable to flex knee or hip on his own. Sat on bed and OT facilitated weight shifts, trunk rotation, and balance exercises while PT focused on Left LE mobility and exercises, as well as transfer techniques. Transferred sit-supine with max assist. Max cues given for encouragement and to position self in bed. All needs met. Education OT Patient Education: Correct positioning, Modified ADL techniques, Progress toward Goal/Update tx plan, Purpose of tx/functional activities, Reviewed precautions, Rehab process, Transfer techniques Teaching Recipient: Patient Teaching Methods: Demonstration, Discussion Response to Teaching: Verbalize Understanding, Return Demonstration OT Short Term Goals Short Term Goals Time Frame: Dec 19, 2019 Eatin Oral hygiene: 5 Toileting hygiene: 3 Shower/bathe self: 3 Upper body dressin Lower body dressin Putting on/taking off footwear: 3 OT Retirement Goals Lieutenant Fire Fighter Goals Time Frame: Jan 02, 2020 Eating (QC): 6 Oral Hygiene (QC): 5 Toileting Hygiene (QC): 6 Shower/Bathe Self (QC): 5 Upper Body Dressing (QC): 5 Lower Body Dressing (QC): 5 On/Off Footwear (QC): 5 Additional Goals: 1-Demonstrate ADL Tasks, 2-Verbalize Understanding, 3- ImproveStrength/Swetha 1=Demonstrate adherence to instructed precautions during ADL tasks. 2=Patient will verbalize/demonstrate understanding of assistive devices/modifications for ADL. 3=Patient will improve strength/tolerance for activity to enable patient to perform ADL's. OT Education/Plan Problem List/Assessment Assessment: Decreased Activ Tolerance, Dependent Transfers, Impaired Bed Mobility, Impaired Funct Balance, Impaired I ADL's, Impaired Self-Care Skills Discharge Recommendations Plan/Recommendations: Continue POC Equpiment Recommendations-D/C: Hip Kit Treatment Plan/Plan of Care Treatment,Training & Education: Yes Patient would benefit from OT for education, treatment and training to promote independence in ADL's, mobility, safety and/or upper extremity function for ADL's. Plan of Care: ADL Retraining, Functional Mobility, Group Exercise/Act as Ind, UE Funct Exercise/Act Treatment Duration: Jan 02, 2020 Frequency: At least 5 of 7 days/Wk (IRF) Estimated Hrs Per Day: 1.5 hours per day Agreement: Yes Rehab Potential: Fair Time/GCodes Start Time: 13:00 Stop Time: 13:45 Total Time Billed (hr/min): 45 Billed Treatment Time 1, FA x 45minutes. Co-treatment with PT. Please see above note for designated roles. CIRA STERN OT Dec 05, 2019 15:31
[2019-12-05 16:00] VITALS: BP 97/60
[2019-12-05] MEDS: ENOXAPARIN 40 MG/0.4 ML (LOVENOX) SYR SC SCH (17:04)
[2019-12-06] MEDS: oxyCODONE/APAP 10/325MG (PERCOCET 10) TABLET PO PRN ×4 (02:26→20:39)
[2019-12-06 05:51] LABS: BASOPHILS % (AUTO) 1 % (0-10); EOSINOPHILS # (AUTO) 0.3 10^3/uL (0.0-0.3); EOSINOPHILS % (AUTO) 5 % (0-10); HEMATOCRIT 23 % (40-54); HEMOGLOBIN 7.7 G/DL (13.3-17.7); LYMPHOCYTES # (AUTO) 0.6 X 10^3 (1.0-4.0); LYMPHOCYTES % (AUTO) 12 % (12-44); MEAN CORPUSCULAR HEMOGLOBIN 32 PG (25-34); MEAN CORPUSCULAR HGB CONC 34 G/DL (32-36); MEAN CORPUSCULAR VOLUME 95 FL (80-99); MEAN PLATELET VOLUME 8.7 FL (7.4-10.4); MONOCYTES # (AUTO) 0.5 X 10^3 (0.0-1.0); MONOCYTES % (AUTO) 10 % (0-12); NEUTROPHILS # (AUTO) 3.7 X 10^3 (1.8-7.8); NEUTROPHILS % (AUTO) 72 % (42-75); PLATELET COUNT 227 10^3/uL (130-400); RED CELL DISTRIBUTION WIDTH 11.7 % (10.0-14.5); WHITE BLOOD COUNT 5.1 10^3/uL (4.3-11.0)
[2019-12-06 06:11] LABS: ALANINE AMINOTRANSFERASE 20 U/L (0-55); ALKALINE PHOSPHATASE 91 U/L (40-136); BILIRUBIN,TOTAL 0.7 MG/DL (0.1-1.0); BUN/CREATININE RATIO 25; CALCIUM 7.9 MG/DL (8.5-10.1); CARBON DIOXIDE 22 MMOL/L (21-32); CHLORIDE 105 MMOL/L (98-107); CREATININE SERUM 0.76 MG/DL (0.60-1.30); GFR ESTIMATED > 60; GLUCOSE 88 MG/DL (70-105); POTASSIUM 3.7 MMOL/L (3.6-5.0); SODIUM 136 MMOL/L (135-145); TOTAL PROTEIN 5.2 GM/DL (6.4-8.2)
[2019-12-06] MEDS: GLIMEPIRIDE 1 MG (AMARYL) TAB PO SCH (06:12)
[2019-12-06] MEDS: inSUlin ASPART (NovoLOG) 1 UNIT/0.01 ML (CHARGE PER UNIT) SC SCH ×4 (06:12→20:45)
[2019-12-06 06:13] VITALS: BP 110/67
[2019-12-06 09:45] VITALS: BP 105/61
[2019-12-06 09:48] VITALS: BP 98/58
[2019-12-06] MEDS: oxyCODONE ER 15 MG (oxyCONTIN CR) TAB PO SCH (09:48)
[2019-12-06] MEDS: DOCUSATE SODIUM 100 MG (COLACE) CAP PO SCH ×2 (09:50→20:39)
[2019-12-06] MEDS: SENNA W/DOCUSATE (SENOKOT S) TABLET PO SCH ×2 (09:50→20:39)
[2019-12-06] MEDS: polyethylene glycoL POWDER 17 GM (MIRALAX) PACK PO SCH ×2 (09:50→20:39)
--- NOTE | 2019-12-06 11:06 | Physical Therapy Daily Note ---
PT Daily Note-Current Subjective Pt laying Supine in bed upon arrival. Pt agrees to PT/OT co-treat but reports pain with movement. Pain Numeric Pain Scale: 10-Worst Possible Pain Location: Left Location Body Site: Hip Pain Description: Stabbing, Sharp Mental Status Patient Orientation: Person, Place, Time, Situation Attachments: Other-See Comments (RONA fontaine) Transfers SCALE: Activities may be completed with or without assistive devices. 8-Jadbbiqxzv-rqzobov completes the activity by him/herself with no assistance f rom a helper. 5-Set-up or Clean-up Assistance-helper sets up or cleans up; patient completes activity. [place] assists only prior to or following the activity. 4-Supervision or Touching Assistance-helper provides verbal cues and/or touching/steadying and/or contact guard assistance as patient completes activity. Assistance may be provided throughout the activity or intermittently. 3-Partial/Moderate Assistance-helper does LESS THAN HALF the effort. [place] lifts, holds or supports trunk or limbs, but provides less than half the effort. 2-Substantial/Maximal Assistance-helper does MORE THAN HALF the effort. [place] lifts or holds trunk or limbs and provides more than half the effort. 9-Kbcyrhiac-gdbjoc does ALL the effort. Patient does none of the effort to complete the activity. Or, the assistance of 2 or more helpers is required for the patient to complete the activity. If activity was not attempted, code reason: 7-Patient Refused. 9-Not Applicable-not attempted and the patient did not perform the activity before the current illness, exacerbation or injury. 10-Not Attempted due to Environmental Limitations-(lack of equipment, weather restraints, etc.). 88-Not Attempted due to Medical Conditions or Safety Concerns. Roll Left & Right (QC): 3 Sit to Lying (QC): 3 Lying to Sitting/Side of Bed(Q: 3 Sit to Stand (QC): 4 Chair/Yhb-mu-Vlqhs Xfer(QC): 4 Weight Bearing Left Lower Extremity: Left Touch Toe Bearing Wheelchair Training Does the Pt Use a Wheelchair?: Yes Type of Wheelchair: Manual Exercises Seated Therapy Exercises: Sit to stand Treatments OT/PT co-treat ([id number]), skills of 2 clinicians required for skilled instru ctions and techniques due to pt's increased pain (rated 10/10 pain) and decreased mobility. PT working on bed mobility, transfers and B LE strengthening. OT working on UE placement during functional transfers, modified ADLs and B UE strengthening. Pt declined shower and stated that he had gotten cleaned up after incontinent accident last night for lower body. Pt did complete upper body bathing and dressing by self after set up. Mod A x2 for supine to sitting EOB due to increased pain and decreased mobility. Pt stood with min A x2 due to pt's increase pain, L LE TTWB and decreased mobility. Pt inconsistent with TTWB precautions. Pt able to manipulate clothing, place and hold urinal with assist x2 for safety in standing. Using FWW, pt transferred from bed to w/c with assist x2 due to increased pain and pt impulsivity due to pain. Pt maneuvered w/c to bathroom and completed oral care and grooming. Assist with RONA hose to don, with L LE assist x1 to lift and assist x1 to don. Pt demonstrated understanding using sock aide to don socks, minimal verbal cues needed then assist with L LE to lift leg and place sock aide over left toe then assist to position L LE while pulling on sock aide. After session, pt sitting in w/c with call light/phone in reach. All needs met in room. Assessment Current Status: Fair Progress Pt is limited by pain and WB status at this time. PT Short Term Goals Short Term Goals Time Frame: Dec 12, 2019 Roll Left & Right: 3 Sit to lyin Lying to sitting on side of be: 3 Sit to stand: 3 Chair/fdr-fg-wncmh transfer: 3 Walk 10 feet: 3 PT Shipping Processor Goals Shipping Processor Goals PT Mcc Goals Time Frame: Dec 26, 2019 Roll Left & Right (QC): 4 Sit to Lying (QC): 3 (German) Lying-Sitting on Side/Bed(QC): 3 (German) Sit to Stand (QC): 3 (German) Chair/Erg-bc-Nslyl Xfer(QC): 3 (German) Toilet Transfer (QC): 3 Car Transfer (QC): 3 (German) Does the Patient Walk: No and Walking Goal IS indicated Walk 10 feet (QC): 3 (German) Walk 50ft with 2 Turns (QC): 3 (German) Walk 150 ft (QC): 88 Walking 10ft on Uneven Surface: 88 1 Step (curb) (QC): 88 4 Steps (QC): 88 12 Steps (QC): 88 Picking up an Object (QC): 88 Does the Pt use WC or Scooter?: Yes Wheel 50 feet with 2 turns (QC: 6 Type: Manual Wheel 150 feet: 6 Type: Manual PT Plan Problem List Problem List: Activity Tolerance, Functional Strength, Safety, Balance, Gait, Transfer, Bed Mobility Treatment/Plan Treatment Plan: Continue Plan of Care Treatment Plan: Bed Mobility, Education, Functional Activity Swetha, Functional Strength, Group Therapy, Gait, Safety, Therapeutic Exercise, Transfers Treatment Duration: Dec 26, 2019 Frequency: At least 5 of 7 days/Wk (IRF) Estimated Hrs Per Day: 1.5 hours per day Patient and/or Family Agrees t: Yes Safety Risks/Education Patient Education: Transfer Techniques, Correct Positioning, Safety Issues Teaching Recipient: Patient Teaching Methods: Discussion Response to Teaching: Reinforcement Needed Time/GCodes Time In: 1000 Time Out: 1115 Total Billed Treatment Time: 75 Total Billed Treatment 1, FA x3 (45m), WCH (15m) & EX (15m) ROLAND COOK PTA Dec 06, 2019 11:06
--- NOTE | 2019-12-06 11:18 | PM&R Progress Note ---
Subjective HPI/CC On Admission Date Seen by Provider: Dec 06, 2019 Time Seen by Provider: 11:30 Subjective/Events-last exam Patient has a lot of pain I spoke to Dr Yassine Lantigua in [place], [place] and he has been on Percocet QID for many years and has had a complete arthritis w/u which was negative and thyroid testing and all other testing to assess the source of his chronic and disabling pain. Likely depression a component is likely he reports 12/04/19 last BM Midline will be placed Increased Oxycontin to 20mg PO BID along with Percocet Q6hrs instead of 4hrs to help with acute on chronic pain issues Conferred with RN Reviewed therapy notes Checked meds and labs Review of Systems General: Fatigue Musculoskeletal: foot pain Objective Exam Vital Signs Vital Signs Date Time Temp Pulse Resp B/P (MAP) Pulse Ox O2 Delivery O2 Flow Rate FiO2 12/06/19 17:50 37.1 12/06/19 16:32 98 Room Air 12/06/19 16:00 82 16 131/74 (93) Capillary Refill : Less Than 3 SecondsLess Than 3 Seconds General Appearance: No Apparent Distress, Anxious, Chronically ill, Thin HEENT: PERRL/EOMI, Normal ENT Inspection, Pharynx Normal Neck: Full Range of Motion, Normal Inspection, Non Tender, Supple, Carotid Bruit Respiratory: Chest Non Tender, Lungs Clear, Normal Breath Sounds, No Accessory Muscle Use, No Respiratory Distress Cardiovascular: Regular Rate, Rhythm, No Edema, No Gallop, No JVD, No Murmur, Normal Peripheral Pulses Gastrointestinal: Normal Bowel Sounds, No Organomegaly, No Pulsatile Mass, Non Tender, Soft Back: Normal Inspection, No CVA Tenderness, No Vertebral Tenderness Extremity: Normal Capillary Refill, Normal Inspection, Normal Range of Motion (except left leg from post op pain), Non Tender, No Calf Tenderness, No Pedal Edema Neurologic/Psychiatric: Alert, Oriented x3, No Motor/Sensory Deficits, system dispatcher II- XII Norm as Tested, Depressed Affect Skin: Normal Color, Warm/Dry Lymphatic: No Adenopathy Results/Procedures Lab Laboratory Tests 12/06/19 05:26 Patient resulted labs reviewed. FIM Transfers Therapy Code Descriptions/Definitions Functional [place] Measure: 0=Not Assessed/NA 4=Minimal Assistance 1=Total Assistance 5=Supervision or Setup 2=Maximal Assistance 6=Modified [place] 3=Moderate Assistance 7=Complete IndependenceSCALE: Activities may be completed with or without assistive devices. 5-Ahvdyignpc-gzpwmbj completes the activity by him/herself with no assistance from a helper. 5-Set-up or Clean-up Assistance-helper sets up or cleans up; patient completes activity. [place] assists only prior to or following the activity. 4-Supervision or Touching Assistance-helper provides verbal cues and/or touching/steadying and/or contact guard assistance as patient completes activity. Assistance may be provided throughout the activity or intermittently. 3-Partial/Moderate Assistance-helper does LESS THAN HALF the effort. [place] lifts, holds or supports trunk or limbs, but provides less than half the effort. 2-Substantial/Maximal Assistance-helper does MORE THAN HALF the effort. [place] lifts or holds trunk or limbs and provides more than half the effort. 5-Ekyurjbad-yopmfy does ALL the effort. Patient does none of the effort to complete the activity. Or, the assistance of 2 or more helpers is required for the patient to complete the activity. If activity was not attempted, code reason: 7-Patient Refused. 9-Not Applicable-not attempted and the patient did not perform the activity before the current illness, exacerbation or injury. 10-Not Attempted due to Environmental Limitations-(lack of equipment, weather restraints, etc.). 88-Not Attempted due to Medical Conditions or Safety Concerns. Roll Left to Right (QC): 3 Sit to Lying (QC): 2 Sit to Stand (QC): 3 Chair/Xbn-yn-Zqnyz Xfer(QC): 2 Car Transfer (QC): 2 Gait Training Does the Patient Walk?: No and Walking Goal IS indicated Walk 10 feet (QC): 88 Walk 50 ft with 2 Turns(QC): 88 Walk 150 ft (QC): 88 Walking 10ft/uneven surface-QC: 88 Wheelchair Training Does the Pt Use a Wheelchair?: Yes Distance: 150'x2 Wheel 50 ft with 2 turns (QC): 4 Wheel 150 ft (QC): 4 Type of Wheelchair: Manual Stair Training 1 Step (curb) (QC): 88 4 Steps (QC): 88 12 Steps (QC): 88 Balance Picking up an Object (QC): 88 ADL-Treatment Eating (QC): 5 (per report) Oral Hygiene (QC): 5 (Set up seated at side of bed.) Shower/Bathe Self (QC): 2 (Pt. able to wash upper body with SBA/CGA. Increased time noted. Stood with max assist and OT able to wash rear ela area. Pt. did not allow for rest of legs to be washed due to pain. Pt. would be dependent with this task.) Upper Body Dressing (QC): 4 (SBA) Lower Body Dressing (QC): 1 (Assessment would be that pt. would be dependent. Pt. required max assist to pull down/up pants and brief in stance. Did not allow for rest of pants to be pulled down.) On/Off Footwear (QC): 1 Toileting Hygiene (QC): 1 Assessment/Plan Assessment and Plan Assess & Plan/Chief Complaint Assessment: Left femur fracture POD # 4 Post op anemia from acute blood loss Orthostatic hypotension requiring 500cc bolus IVF NS yesterday now resolved DM insulin dependency Chronic pain Narcotic dependent Chronic DJD back pain Thin build Poor reserve Chronic debility Frail status Poor nutrition Plan: IVF bolus has helped Monitor labs Venofer Midline placement Monitor diabetes IRF protocol [place] with RONA's (1) Closed left femoral fracture (2) Frailty (3) Flat affect (4) Chronic pain (5) Narcotic dependence (6) Diabetes mellitus with insulin therapy (7) Thin build (8) Orthostasis (9) Postoperative anemia due to acute blood loss (10) Iron deficiency NORIS LESTER DO Dec 06, 2019 11:18
--- NOTE | 2019-12-06 11:19 | Individualized Plan of Care ---
Individualized Plan of Care Rehab Nursing IPOC Order Admission Date Dec 04, 2019 at 21:17 Current Orders Orders Admission Order(Inpt,Obs,Sdc) (12/04/19 16:32) Vital Signs: Per Unit Policy ( 08,16,00 (12/04/19 16:32) Juanjose Crowley 09,21 (12/04/19 16:32) Sequential Compression Device Q4H (12/04/19 16:32) Pilot Supervisor-Inpt Rehab Con (12/04/19 16:32) Rehab Nursing Orders-Ipoc (12/04/19 16:32) Physical Therapy Rehab Orders (12/04/19 16:32) Occupational Therapy Rehab Ord (12/04/19 16:32) Speech Therapy Rehab Orders (12/04/19 16:32) Cbc With Automated Diff (12/05/19 06:00) Comprehensive Metabolic Panel (12/05/19 06:00) Intake & Output 06,14,22 (12/04/19 16:32) Accucheck Achs ACHS (12/04/19 16:32) Precautions (Aru) (12/04/19 16:32) Weekly Weight WEEK (12/04/19 16:32) Rehab-Intensity Of Therapy (12/04/19 16:32) Cho 75g/M 3snack (21-2400 [place]) (12/05/19 Breakfast) Initiate Admission Nursing Pro .admission (12/04/19 16:32) Alprazolam Tablet (Xanax Tablet) (12/04/19 16:45) Calcium Carbonate Chew Tablet (Antacid C (12/04/19 16:45) Diphenhydramine Tablet (Benadryl Tablet) (12/04/19 16:45) Docusate Sodium Capsule (Colace Capsule) (12/04/19 21:00) Docusate Sodium Capsule (Colace Capsule) (12/04/19 16:45) Bisacodyl Suppository (Dulcolax Supposit (12/04/19 16:45) Lactulose Oral Solution (Enulose Oral So (12/04/19 16:45) Na Phos/Na Biphos Enema (Fleet Enema Caemron (12/04/19 16:45) Guaifenesin/Codeine Syrup (Robitussin Ac (12/04/19 16:45) Loperamide Tablet (Imodium Tablet) (12/04/19 16:45) Enoxaparin Injection (Lovenox Injection) (12/04/19 16:45) Melatonin Tablet (Melatonin Tablet) (12/04/19 16:45) Polyethylene Glycol Powder Pkt (Miralax (12/04/19 21:00) Ondansetron Oral Dissolve Tab (Zofran (12/04/19 16:45) Senna S Tablet (Senokot S Tablet) (12/04/19 21:00) Oxycodone/Acet 10/325mg Tablet (Percocet (12/04/19 16:45) Oxycodone Extended Release Tab (Oxyconti (12/04/19 21:00) Iron Test (Fe) (12/05/19 06:00) Code/Resuscitation (12/04/19 16:32) Initiate Admission Nursing Pro .admission (12/04/19 16:32) Glimepiride Tablet (Amaryl Tablet) (12/05/19 07:00) Lisinopril Tablet (Zestril Tablet) (12/05/19 09:00) (Nf) Zolpidem Tartrate (Ambien) (12/04/19 18:00) Insulin Aspart (Novolog) (Novolog (Charg (12/04/19 21:00) Insulin Determir (Per Unit) (Levemir (Pe (12/04/19 21:00) Enoxaparin Injection (Lovenox Injection) (12/04/19 21:27) Ambulate 08,12,20 (12/04/19 23:05) Sequential Compression Device Q4H (12/04/19 23:05) Dvt/Vte Risk - Notifiy Physici Q4H (12/04/19 23:05) Oxycodone/Acet 10/325mg Tablet (Percocet (12/05/19 01:02) Docusate Sodium Capsule (Colace Capsule) (12/04/19 21:26) Polyethylene Glycol Powder Pkt (Miralax (12/04/19 21:27) Senna S Tablet (Senokot S Tablet) (12/04/19 21:27) Oxycodone Extended Release Tab (Oxyconti (12/04/19 21:27) Insulin Aspart (Novolog) (Novolog (Charg (12/04/19 21:40) Insulin Determir (Per Unit) (Levemir (Pe (12/04/19 21:39) Zolpidem Tablet (Ambien Tablet) (12/05/19 05:15) Glimepiride Tablet (Amaryl Tablet) (12/05/19 04:59) Insulin Determir (Per Unit) (Levemir (Pe (12/05/19 21:00) Iron Sucrose Injection (Venofer Injectio (12/05/19 09:00) Insulin Aspart (Novolog) (Novolog (Charg (12/05/19 11:00) Hemoglobin A1c (12/05/19 08:45) Ns Iv 500 Ml (Sodium Chloride 0.9%) (12/05/19 11:30) Nursing Communication (Order) (12/05/19 11:18) Patient Visit (12/05/19 ) Pt Eval Moderate Complexity (12/05/19 ) Functional Activities, Ea 15 (12/05/19 ) Thyroid Stimulating Hormone (12/05/19 11:39) Patient Visit (12/05/19 ) Speech Sound Lang Comp (12/05/19 ) Patient Visit (12/05/19 ) Functional Activities, Ea 15 (12/05/19 ) Patient Visit (12/05/19 ) Exercise Therap, Ea 15 Min (12/05/19 ) Cbc With Automated Diff (12/06/19 08:00) Comprehensive Metabolic Panel (12/06/19 08:00) Oxycodone/Acet 10/325mg Tablet (Percocet (12/06/19 11:00) Venous Access Request Order (12/06/19 10:50) Venous Access Request Order (12/06/19 11:04) Atorvastatin Tablet (Lipitor Tablet) (12/06/19 21:00) Oxycodone Hcl (Oxycontin) (12/06/19 11:45) Oxycodone Hcl (Oxycontin) (12/06/19 21:00) Patient Visit (12/06/19 ) Functional Activities, Ea 15 (12/06/19 ) Wheelchair Mgmt/Propulsn 15min (12/06/19 ) Exercise Therap, Ea 15 Min (12/06/19 ) Amb Us Guide Vascular Access (12/06/19 ) Incentive Spirometry Initial (12/06/19 16:11) Incentive Spirometry (Nursing) Q2H (12/06/19 16:11) Oxycodone Extended Release Tab (Oxyconti (12/06/19 20:33) Oxycodone Extended Release Tab (Oxyconti (12/07/19 09:00) Patient Visit (12/07/19 ) Functional Activities, Ea 15 (12/07/19 ) Gait Training, Ea 15 Min (12/07/19 ) Exercise Therap, Ea 15 Min (12/07/19 ) Rehab Nursing Orders: Ongoing Assess. of Cognitive Status, Ongoing Assess. of Function Status, Bladder Management, Bladder Scan, Bladder Training, Bowel Management, Bowel Training, Disease Management & Educaiton, DVT Prophylaxis, Fall Prevention, Fluid/Electrolyte/Nutrition Mgmt, Infection Prevention, Medication Management & Education, Management of Risks & Complications, Management of Skin Intergrity, Nutrition Management, Pain Management, Patient/Family Support, Safety Management Intensity of Therapy to be met Patient to be seen: Min.3h per day/5 of 7d PT IPOC Problem List: Activity Tolerance, Functional Strength, Safety, Balance, Gait, Transfer, Bed Mobility, ROM Treatment Plan: Continue Plan of Care Bed Mobility, Education, Functional Activity Swetha, Functional Strength, Group Therapy, Gait, Safety, Therapeutic Exercise, Transfers Treatment Duration: Dec 26, 2019 Frequency: At least 5 of 7 days/Wk (IRF) Estimated Hrs Per Day: 1.5 hours per day OT IPOC Problems: Decreased Activ Tolerance, Dependent Transfers, Impaired Bed Mobility, Impaired Funct Balance, Impaired I ADL's, Impaired Self-Care Skills OT Treatment, Training and Edu: Yes Plan of Care: ADL Retraining, Functional Mobility, Group Exercise/Act as Ind, UE Funct Exercise/Act Treatment Duration: Dec 19, 2019 Frequency: At least 5 of 7 days/Wk (IRF) Estimated Hrs Per Day: 1.[address] IPOC Speech Therapy Treatment Plan: Discontinue ST Treatment Duration: Dec 05, 2019 Frequency: 1 time per week Estimated Hrs Per Day: .25 hour per day Pilot Supervisor/Case Mgmt Pilot Supervisor/Case Managemen: Discharge Planning Dietitian/Lapping Machine Tender Dietitian/Lapping Machine Tender to monitor nutritional status and make changes and/or recommendations as needed and work with speech pathology on dietary upgrades as the occur. Physician IPOC Medical Issues being managed closely and that require the 24 hour availability of a physician: Chronic frail status with severe post op anemia and acute on chronic pain with severe flat affect at high risk for decompensation Medical Issues: Bowel/Bladder Function, DVT Prophylaxis, Falls Precautions, Fluid/Electrolyte/Nutrition Balance, Infection Protection, Pain Management Brief Synthesis of Preadmission Screen, Post-Admission Evaluation, and Therapy Evaluations: PT OT will focus on increasing stamina and ambulatory skills while weight bearing restricted and increasing ADL's in order to return home Medical Prognosis: Good Anticipated Length of Stay: 7 days NORIS LESTER DO Dec 06, 2019 11:18
--- NOTE | 2019-12-06 11:34 | Occupational Ther Daily Note ---
OT Current Status-Daily Note Subjective Pt alert, lying in bed. Pt agrees to therapy. No c/o with lying/sitting still, 10/10 pain with movement. Mental Status/Objective Patient Orientation: Person, Place, Time, Situation Attachments: IV ADL-Treatment OT/PT co-treat ([id number]), skills of 2 clinicians required for skilled instructions and techniques due to pt's increased pain (rated 10/10 pain) and decreased mobility. PT working on bed mobility, transfers and B LE strengthening. OT working on UE placement during functional transfers, modified ADLs and B UE strengthening. Pt declined shower and stated that he had gotten cleaned up after incontinent accident last night for lower body. Pt did complete upper body bathing and dressing by self after set up. Mod A x2 for supine to sitting EOB due to increased pain and decreased mobility. Pt stood with min A x2 due to pt's increase pain, L LE TTWB and decreased mobility. Pt inconsistent with TTWB precautions. Pt able to manipulate clothing, place and hold urinal with assist x2 for safety in standing. Using FWW, pt transferred from bed to w/c with assist x2 due to increased pain and pt impulsivity due to pain. Pt maneuvered w/c to bathroom and completed oral care and grooming. Assist with RONA hose to don, with L LE assist x1 to lift and assist x1 to don. Pt demonstrated understanding using sock aide to don socks, minimal verbal cues needed then assist with L LE to lift leg and place sock aide over left toe then assist to position L LE while pulling on sock aide. After session, pt sitting in w/c with call light/phone in reach. All needs met in room. Therapy Code Descriptions/Definitions Functional [place] Measure: 0=Not Assessed/NA 4=Minimal Assistance 1=Total Assistance 5=Supervision or Setup 2=Maximal Assistance 6=Modified [place] 3=Moderate Assistance 7=Complete IndependenceSCALE: Activities may be completed with or without assistive devices. 2-Licntwmbgc-fanathx completes the activity by him/herself with no assistance from a helper. 5-Set-up or Clean-up Assistance-helper sets up or cleans up; patient completes activity. [place] assists only prior to or following the activity. 4-Supervision or Touching Assistance-helper provides verbal cues and/or touching/steadying and/or contact guard assistance as patient completes activity. Assistance may be provided throughout the activity or intermittently. 3-Partial/Moderate Assistance-helper does LESS THAN HALF the effort. [place] lifts, holds or supports trunk or limbs, but provides less than half the effort. 2-Substantial/Maximal Assistance-helper does MORE THAN HALF the effort. [place] lifts or holds trunk or limbs and provides more than half the effort. 8-Celwvaqpn-vwaczj does ALL the effort. Patient does none of the effort to complete the activity. Or, the assistance of 2 or more helpers is required for the patient to complete the activity. If activity was not attempted, code reason: 7-Patient Refused. 9-Not Applicable-not attempted and the patient did not perform the activity before the current illness, exacerbation or injury. 10-Not Attempted due to Environmental Limitations-(lack of equipment, weather restraints, etc.). 88-Not Attempted due to Medical Conditions or Safety Concerns. Oral Hygiene (QC): 6 Upper Body Dressing (QC): 5 On/Off Footwear: 1 Toileting Hygiene (QC): 1 Toilet Transfer (QC): 1 Other Treatment Pt maneuvered w/c to/from therapy gym. Pt working on standing balance using parallel bars. Placed 1# wt on wrists to work on strengthening of B UE while in standing to promote dynamic standing. See PT notes for standing assist. OT Short Term Goals Short Term Goals Time Frame: Dec 19, 2019 Eatin Oral hygiene: 5 Toileting hygiene: 3 Shower/bathe self: 3 Upper body dressin Lower body dressin Putting on/taking off footwear: 3 OT Information Technology Coordinator Goals Information Technology Coordinator Goals Time Frame: Jan 02, 2020 Eating (QC): 6 Oral Hygiene (QC): 6 Toileting Hygiene (QC): 6 Shower/Bathe Self (QC): 6 Upper Body Dressing (QC): 6 Lower Body Dressing (QC): 6 On/Off Footwear (QC): 6 Additional Goals: 1-Demonstrate ADL Tasks, 2-Verbalize Understanding, 3- ImproveStrength/Swetha 1=Demonstrate adherence to instructed precautions during ADL tasks. 2=Patient will verbalize/demonstrate understanding of assistive devices/modifications for ADL. 3=Patient will improve strength/tolerance for activity to enable patient to perform ADL's. OT Education/Plan Problem List/Assessment Assessment: Decreased Activ Tolerance, Decreased Safety Aware, Decreased UE Strength, Dependent Transfers, Impaired Bed Mobility, Impaired Coordination, Impaired Funct Balance, Impaired I ADL's, Impaired Self-Care Skills Discharge Recommendations Plan/Recommendations: Continue POC Treatment Plan/Plan of Care Patient would benefit from OT for education, treatment and training to promote independence in ADL's, mobility, safety and/or upper extremity function for ADL's. Plan of Care: ADL Retraining, Functional Mobility, Group Exercise/Act as Ind, UE Funct Exercise/Act Treatment Duration: Dec 19, 2019 Frequency: At least 5 of 7 days/Wk (IRF) Estimated Hrs Per Day: 1.5 hours per day Agreement: Yes Rehab Potential: Fair Time/GCodes Start Time: 10:00 Stop Time: 11:15 Total Time Billed (hr/min): 75 Billed Treatment Time 1 visit-ADL 2 (30 min) EX 2 (25 min) FA 1 (20 min) XU GOMES Dec 06, 2019 11:34
[2019-12-06] MEDS ORDERED: OXYCODONE HCL 20 MG PO SCH ×2 (11:45→21:00)
--- NOTE | 2019-12-06 12:25 | NUR ---
CALL TO PHARMACY, SPOKE W ZARA PETERSON, REGARDING SCHEDULED OXYCONTIN DOSE CHANGE, PT HAS ALREADY RECEIVED THE SCHEDULED 15 MG DOSE THIS AM AT 0948, SEE EMAR.
--- NOTE | 2019-12-06 12:44 | NUR ---
CM/SS ADMISSION/FOLLOWUP Patient was admitted to ARU 12/04/19 for Subtrochanteric Fracture of Left Femur, status post surgical repair and nailing. Patient reportedly fell at home from a standing position onto his left side sustaining the fracture, and was admitted to [facility] 12/01/19. Additional comorbidities include, in part, chronic pain syndrome, HLD, HTN, IDDM. Patient resided at home with his spouse, Sherie Rebolledo. They have been 25 years, their wedding anniversary is today, 12/06/19. Artificial Breast Fabricator met with Sherie when she dropped off some of patient's belongings at front entrance. Patient reportedly was independent prior to injury, he states he walked about 2 miles daily with a cane. EMR/therapy notes reflect that patient has experienced pain thus far that limits his participation in their treatment sessions. DME: Patient has a cane and no other DME. Therapy staff to assess for new assistive device needs relative to home performance and safety. PCP: INSURANCE: [facility] and [place] Medicaid [facility]: [facility] [place], [place] CONTACTS: Sherie Rebolledo, [address] [facility] [id number] Sherie indicates they have a grandchild they have often but no other available family. Patient had 6 children, two , and he has little to no contact with the remaining 4. Sherie shared that his children have drug history and lifestyles. Patient and Sherie had a child in their marriage that in infancy, they had no other children. Patient and Sherie understood the purpose and process of the weekly team conference. Patient and Sherie drove a semi together, she reports a very close relationship and they are not used to being apart. 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 Inquired about patient history regarding 'chronic pain syndrome' and Sherie reports that patient has been on Percocet for an extended period for back and all-over pain, that he at times says he even hurts in his bones. Patient reportedly fell at [employer] from a stairway , injured a knee, had two injections, but has had increased pain since. He did have an x-ray of his hip in August that was apparently negative. Immediate barrier appears to be pain management. Continue to follow for post hospital care plan.
[2019-12-06 13:28] VITALS: BP 124/71
[2019-12-06] MEDS: lisINopril 10 MG (PRINIVIL) TABLET PO SCH (13:31)
--- NOTE | 2019-12-06 13:31 | Occupational Ther Daily Note ---
OT Current Status-Daily Note Subjective Pt alert, lying in bed. Pt c/o 10/10 pain and requested pain meds. Reported to nrsg, nrsg reported that pain meds were not due. Mental Status/Objective Patient Orientation: Person, Place, Time, Situation Attachments: IV (midline) ADL-Treatment Therapy Code Descriptions/Definitions Functional [place] Measure: 0=Not Assessed/NA 4=Minimal Assistance 1=Total Assistance 5=Supervision or Setup 2=Maximal Assistance 6=Modified [place] 3=Moderate Assistance 7=Complete IndependenceSCALE: Activities may be completed with or without assistive devices. 5-Nidllrhflb-jomtaqo completes the activity by him/herself with no assistance from a helper. 5-Set-up or Clean-up Assistance-helper sets up or cleans up; patient completes activity. [place] assists only prior to or following the activity. 4-Supervision or Touching Assistance-helper provides verbal cues and/or touching/steadying and/or contact guard assistance as patient completes activity. Assistance may be provided throughout the activity or intermittently. 3-Partial/Moderate Assistance-helper does LESS THAN HALF the effort. [place] lifts, holds or supports trunk or limbs, but provides less than half the effort. 2-Substantial/Maximal Assistance-helper does MORE THAN HALF the effort. [place] lifts or holds trunk or limbs and provides more than half the effort. 2-Pqzmjqezi-vuvygz does ALL the effort. Patient does none of the effort to complete the activity. Or, the assistance of 2 or more helpers is required for the patient to complete the activity. If activity was not attempted, code reason: 7-Patient Refused. 9-Not Applicable-not attempted and the patient did not perform the activity bef ore the current illness, exacerbation or injury. 10-Not Attempted due to Environmental Limitations-(lack of equipment, weather r estraints, etc.). 88-Not Attempted due to Medical Conditions or Safety Concerns. Other Treatment OT/PT co-treat ([id number]), skills of 2 clinicians required for skilled instructions and techniques due to pt's increased pain (rated 10/10 pain) and decreased mobility. PT working on bed mobility and B LE strengthening. OT working on UE placement during functional transfers and use of AD for bed mobility. Pt c/o pain with movement and did not want to complete therapy without getting his pain meds. OT/PT encouraged pt to work on supine to sitting using leg chief school finance officer. Pt demonstrated understanding with unaffected leg though using on L LE unable to use due to pain. Mod A x2 for supine <--> EOB with increased pain with each movement. After session, pt lying in bed with call light/phone in reach. All needs met in room. OT Short Term Goals Short Term Goals Time Frame: Dec 19, 2019 Eatin Oral hygiene: 5 Toileting hygiene: 3 Shower/bathe self: 3 Upper body dressin Lower body dressin Putting on/taking off footwear: 3 OT Lamp Stack Developer Goals Mcc Goals Time Frame: Jan 02, 2020 Eating (QC): 6 Oral Hygiene (QC): 6 Toileting Hygiene (QC): 6 Shower/Bathe Self (QC): 6 Upper Body Dressing (QC): 6 Lower Body Dressing (QC): 6 On/Off Footwear (QC): 6 Additional Goals: 1-Demonstrate ADL Tasks, 2-Verbalize Understanding, 3-ImproveStrength/Swetha 1=Demonstrate adherence to instructed precautions during ADL tasks. 2=Patient will verbalize/demonstrate understanding of assistive devices/modifications for ADL. 3=Patient will improve strength/tolerance for activity to enable patient to perform ADL's. OT Education/Plan Problem List/Assessment Assessment: Decreased Activ Tolerance, Decreased UE Strength, Dependent Transfers, Impaired Bed Mobility, Impaired Coordination, Impaired Funct Balance, Impaired Self-Care Skills Discharge Recommendations Plan/Recommendations: Continue POC Treatment Plan/Plan of Care Patient would benefit from OT for education, treatment and training to promote independence in ADL's, mobility, safety and/or upper extremity function for ADL's. Plan of Care: ADL Retraining, Functional Mobility, Group Exercise/Act as Ind, UE Funct Exercise/Act Treatment Duration: Dec 19, 2019 Frequency: At least 5 of 7 days/Wk (IRF) Estimated Hrs Per Day: 1.5 hours per day Agreement: Yes Rehab Potential: Fair Time/GCodes Start Time: 13:00 Stop Time: 13:30 Total Time Billed (hr/min): 30 Billed Treatment Time 1 visit-FA x2 (30 min) Co-treat with PT 30 min XU GOMES Dec 06, 2019 13:31
--- NOTE | 2019-12-06 13:52 | Physical Therapy Daily Note ---
PT Daily Note-Current Subjective Pt alert, lying in bed. Pt c/o 10/10 pain and requested pain meds. Reported to nrsg, nrsg reported that pain meds were not due. Pain Numeric Pain Scale: 10-Worst Possible Pain Location: Left Location Body Site: Hip Pain Description: Stabbing Mental Status Patient Orientation: Person, Place, Situation Transfers SCALE: Activities may be completed with or without assistive devices. 5-Apvmagzdzy-epsjydy completes the activity by him/herself with no assistance from a helper. 5-Set-up or Clean-up Assistance-helper sets up or cleans up; patient completes activity. [place] assists only prior to or following the activity. 4-Supervision or Touching Assistance-helper provides verbal cues and/or touching/steadying and/or contact guard assistance as patient completes activity. Assistance may be provided throughout the activity or intermittently. 3-Partial/Moderate Assistance-helper does LESS THAN HALF the effort. [place] lifts, holds or supports trunk or limbs, but provides less than half the effort. 2-Substantial/Maximal Assistance-helper does MORE THAN HALF the effort. [place] lifts or holds trunk or limbs and provides more than half the effort. 4-Rimysifyl-clyaqg does ALL the effort. Patient does none of the effort to complete the activity. Or, the assistance of 2 or more helpers is required for the patient to complete the activity. If activity was not attempted, code reason: 7-Patient Refused. 9-Not Applicable-not attempted and the patient did not perform the activity before the current illness, exacerbation or injury. 10-Not Attempted due to Environmental Limitations-(lack of equipment, weather restraints, etc.). 88-Not Attempted due to Medical Conditions or Safety Concerns. Sit to Lying (QC): 3 Lying to Sitting/Side of Bed(Q: 3 Weight Bearing Left Lower Extremity: Left Touch Toe Bearing Treatments OT/PT co-treat ([id number]), skills of 2 clinicians required for skilled instructions and techniques due to pt's increased pain (rated 10/10 pain) and decreased mobility. PT working on bed mobility and B LE strengthening. OT working on UE placement during functional transfers and use of AD for bed mobility. Pt c/o pain with movement and did not want to complete therapy without getting his pain meds. OT/PT encouraged pt to work on supine to sitting using leg sales and marketing intern. Pt demonstrated understanding with unaffected leg though using on L LE unable to use due to pain. Mod A x2 for supine <--> EOB with increased pain with each movement. After session, pt lying in bed with call light/phone in reach. All needs met in room. Assessment Current Status: Good Progress Pt is limited by pain during Rx but cannot not have anymore pain med at this time per Nurse. PT Short Term Goals Short Term Goals Time Frame: Dec 12, 2019 Roll Left & Right: 3 Sit to lyin Lying to sitting on side of be: 3 Sit to stand: 3 Chair/pqq-tv-gmbhz transfer: 3 Walk 10 feet: 3 PT Correction Goals Technical Support Representative Goals PT Correction Goals Time Frame: Dec 26, 2019 Roll Left & Right (QC): 4 Sit to Lying (QC): 3 (German) Lying-Sitting on Side/Bed(QC): 3 (German) Sit to Stand (QC): 3 (German) Chair/Yyi-lq-Xrohr Xfer(QC): 3 (German) Toilet Transfer (QC): 3 Car Transfer (QC): 3 (German) Does the Patient Walk: No and Walking Goal IS indicated Walk 10 feet (QC): 3 (German) Walk 50ft with 2 Turns (QC): 3 (German) Walk 150 ft (QC): 88 Walking 10ft on Uneven Surface: 88 1 Step (curb) (QC): 88 4 Steps (QC): 88 12 Steps (QC): 88 Picking up an Object (QC): 88 Does the Pt use WC or Scooter?: Yes Wheel 50 feet with 2 turns (QC: 6 Type: Manual Wheel 150 feet: 6 Type: Manual PT Plan Problem List Problem List: Activity Tolerance, Functional Strength, Safety, Balance, Transfer, Bed Mobility Treatment/Plan Treatment Plan: Continue Plan of Care Treatment Plan: Bed Mobility, Education, Functional Activity Swetha, Functional Strength, Group Therapy, Gait, Safety, Therapeutic Exercise, Transfers Treatment Duration: Dec 26, 2019 Frequency: At least 5 of 7 days/Wk (IRF) Estimated Hrs Per Day: 1.5 hours per day Patient and/or Family Agrees t: Yes Safety Risks/Education Patient Education: Transfer Techniques, Correct Positioning, Safety Issues Teaching Recipient: Patient Teaching Methods: Discussion Response to Teaching: Verbalize Understanding Time/GCodes Time In: 1300 Time Out: 1330 Total Billed Treatment Time: 30 Total Billed Treatment 1, FA x2 (30m) ROLAND COOK SNOWBLOWER MECHANIC Dec 06, 2019 13:52
[2019-12-06] MEDS ORDERED: LISI-556 PO (15:08)
[2019-12-06 16:00] VITALS: BP 131/74
--- NOTE | 2019-12-06 16:25 | NUR ---
Notified Dr. Ashley of elevated temp, orders for I/S. Also instructed pt to cough, take deep breaths hourly.
[2019-12-06] MEDS: ENOXAPARIN 40 MG/0.4 ML (LOVENOX) SYR SC SCH (17:05)
[2019-12-06] MEDS ORDERED: oxyCODONE ER 20 MG (OxyCONTIN CR) TAB PO ONE (20:33)
[2019-12-07] MEDS: oxyCODONE/APAP 10/325MG (PERCOCET 10) TABLET PO PRN ×3 (02:42→17:09)
[2019-12-07] MEDS: inSUlin ASPART (NovoLOG) 1 UNIT/0.01 ML (CHARGE PER UNIT) SC SCH ×4 (05:35→20:39)
[2019-12-07 06:00] VITALS: BP 146/70
[2019-12-07] MEDS: GLIMEPIRIDE 1 MG (AMARYL) TAB PO SCH (06:37)
[2019-12-07] MEDS: IRON SUCROSE 200 MG/10 ML (VENOFER) VIAL IV SCH (08:20)
[2019-12-07] MEDS: SENNA W/DOCUSATE (SENOKOT S) TABLET PO SCH ×2 (08:25→21:22)
[2019-12-07] MEDS: lisINopril 10 MG (PRINIVIL) TABLET PO SCH (08:25)
[2019-12-07] MEDS: oxyCODONE ER 20 MG (OxyCONTIN CR) TAB PO SCH ×2 (08:25→21:19)
[2019-12-07] MEDS: DOCUSATE SODIUM 100 MG (COLACE) CAP PO SCH ×2 (08:25→21:22)
[2019-12-07] MEDS: polyethylene glycoL POWDER 17 GM (MIRALAX) PACK PO SCH ×2 (09:00→21:21)
--- NOTE | 2019-12-07 11:39 | PM&R Progress Note ---
Subjective HPI/CC On Admission Date Seen by Provider: Dec 07, 2019 Time Seen by Provider: 11:45 Subjective/Events-last exam Patient has had a lot of pain periodically since I increased the Oxycontin to 20mg BID and changed the Percocet to Q6hrs but we need to keep working through some of this pain since he has such chronic issues with pain and is narcotic dependent Open for psych evaluation so will reach out on Monday for that Terra admit was last BM so open for suppository today and I talked to the nurse Midline was placed No falls Appears more improved affect ness Conferred with RN Reviewed therapy notes Checked meds and labs Review of Systems General: Fatigue Musculoskeletal: leg pain Objective Exam Vital Signs Vital Signs Date Time Temp Pulse Resp B/P (MAP) Pulse Ox O2 Delivery O2 Flow Rate FiO2 12/07/19 06:00 37.4 96 18 146/70 (95) 98 Room Air Capillary Refill : Less Than 3 SecondsLess Than 3 Seconds General Appearance: No Apparent Distress, Anxious, Chronically ill, Thin HEENT: PERRL/EOMI, Normal ENT Inspection, Pharynx Normal Neck: Full Range of Motion, Normal Inspection, Non Tender, Supple, Carotid Bruit Respiratory: Chest Non Tender, Lungs Clear, Normal Breath Sounds, No Accessory Muscle Use, No Respiratory Distress Cardiovascular: Regular Rate, Rhythm, No Edema, No Gallop, No JVD, No Murmur, Normal Peripheral Pulses Gastrointestinal: Normal Bowel Sounds, No Organomegaly, No Pulsatile Mass, Non Tender, Soft Back: Normal Inspection, No CVA Tenderness, No Vertebral Tenderness Extremity: Normal Capillary Refill, Normal Inspection, Normal Range of Motion (except left leg from post op pain), Non Tender, No Calf Tenderness, No Pedal Edema Neurologic/Psychiatric: Alert, Oriented x3, No Motor/Sensory Deficits, professor of oceanography II- XII Norm as Tested, Depressed Affect Skin: Normal Color, Warm/Dry Lymphatic: No Adenopathy Results/Procedures Lab Patient resulted labs reviewed. FIM Transfers Therapy Code Descriptions/Definitions Functional [place] Measure: 0=Not Assessed/NA 4=Minimal Assistance 1=Total Assistance 5=Supervision or Setup 2=Maximal Assistance 6=Modified [place] 3=Moderate Assistance 7=Complete IndependenceSCALE: Activities may be completed with or without assistive devices. 5-Enrvamoiky-sjuppfh completes the activity by him/herself with no assistance from a helper. 5-Set-up or Clean-up Assistance-helper sets up or cleans up; patient completes activity. [place] assists only prior to or following the activity. 4-Supervision or Touching Assistance-helper provides verbal cues and/or touching/steadying and/or contact guard assistance as patient completes activity. Assistance may be provided throughout the activity or intermittently. 3-Partial/Moderate Assistance-helper does LESS THAN HALF the effort. [place] lifts, holds or supports trunk or limbs, but provides less than half the effort. 2-Substantial/Maximal Assistance-helper does MORE THAN HALF the effort. [place] lifts or holds trunk or limbs and provides more than half the effort. 7-Txfgkaoaw-tabqol does ALL the effort. Patient does none of the effort to complete the activity. Or, the assistance of 2 or more helpers is required for the patient to complete the activity. If activity was not attempted, code reason: 7-Patient Refused. 9-Not Applicable-not attempted and the patient did not perform the activity before the current illness, exacerbation or injury. 10-Not Attempted due to Environmental Limitations-(lack of equipment, weather restraints, etc.). 88-Not Attempted due to Medical Conditions or Safety Concerns. Roll Left to Right (QC): 3 Sit to Lying (QC): 3 Sit to Stand (QC): 4 Chair/Zph-ls-Roofx Xfer(QC): 4 Car Transfer (QC): 2 Gait Training Does the Patient Walk?: No and Walking Goal IS indicated Walk 10 feet (QC): 88 Walk 50 ft with 2 Turns(QC): 88 Walk 150 ft (QC): 88 Walking 10ft/uneven surface-QC: 88 Wheelchair Training Does the Pt Use a Wheelchair?: Yes Distance: 150'x2 Wheel 50 ft with 2 turns (QC): 4 Wheel 150 ft (QC): 4 Type of Wheelchair: Manual Stair Training 1 Step (curb) (QC): 88 4 Steps (QC): 88 12 Steps (QC): 88 Balance Picking up an Object (QC): 88 ADL-Treatment Eating (QC): 5 (per report) Oral Hygiene (QC): 6 Shower/Bathe Self (QC): 2 (Pt. able to wash upper body with SBA/CGA. Increased time noted. Stood with max assist and OT able to wash rear ela area. Pt. did not allow for rest of legs to be washed due to pain. Pt. would be dependent with this task.) Upper Body Dressing (QC): 5 Lower Body Dressing (QC): 1 (Assessment would be that pt. would be dependent. Pt. required max assist to pull down/up pants and brief in stance. Did not allow for rest of pants to be pulled down.) On/Off Footwear (QC): 1 Toileting Hygiene (QC): 1 Toilet Transfer (QC): 1 Assessment/Plan Assessment and Plan Assess & Plan/Chief Complaint Assessment: Left femur fracture POD # 5 Post op anemia from acute blood loss Orthostatic hypotension requiring 500cc bolus IVF NS yesterday now resolved DM insulin dependency Chronic pain Narcotic dependent Chronic DJD back pain Thin build Poor reserve Chronic debility Frail status Poor nutrition Iron deficiency severe requiring IV Venofer Plan: Monitor labs Venofer Midline placement Monitor diabetes IRF protocol [place] with RONA's (1) Closed left femoral fracture (2) Frailty (3) Flat affect (4) Chronic pain (5) Narcotic dependence (6) Diabetes mellitus with insulin therapy (7) Thin build (8) Orthostasis (9) Postoperative anemia due to acute blood loss (10) Iron deficiency NORIS LESTER DO Dec 07, 2019 11:39
--- NOTE | 2019-12-07 12:41 | Physical Therapy Daily Note ---
PT Daily Note-Current Subjective Pt reports he continues to have 10/10 pain with certain movements of the (L) leg. Transfers SCALE: Activities may be completed with or without assistive devices. 4-Xdbtvgfgtc-mvmkgrr completes the activity by him/herself with no assistance from a helper. 5-Set-up or Clean-up Assistance-helper sets up or cleans up; patient completes activity. [place] assists only prior to or following the activity. 4-Supervision or Touching Assistance-helper provides verbal cues and/or touching/steadying and/or contact guard assistance as patient completes activity. Assistance may be provided throughout the activity or intermittently. 3-Partial/Moderate Assistance-helper does LESS THAN HALF the effort. [place] lifts, holds or supports trunk or limbs, but provides less than half the effort. 2-Substantial/Maximal Assistance-helper does MORE THAN HALF the effort. [place] lifts or holds trunk or limbs and provides more than half the effort. 8-Kwyvturur-xipmvg does ALL the effort. Patient does none of the effort to complete the activity. Or, the assistance of 2 or more helpers is required for the patient to complete the activity. If activity was not attempted, code reason: 7-Patient Refused. 9-Not Applicable-not attempted and the patient did not perform the activity before the current illness, exacerbation or injury. 10-Not Attempted due to Environmental Limitations-(lack of equipment, weather restraints, etc.). 88-Not Attempted due to Medical Conditions or Safety Concerns. Roll Left & Right (QC): 3 Sit to Lying (QC): 3 Lying to Sitting/Side of Bed(Q: 3 Sit to Stand (QC): 3 Chair/Fzx-lx-Awpmr Xfer(QC): 3 Weight Bearing Left Lower Extremity: Left Touch Toe Bearing Gait Training Does the Patient Walk?: Yes Distance: 8 Gait Assistive Device: Parallel Bars Ambulate 8 ft in parallel bars x 6 trials all with Min A to advance the (L) foot. Exercises Supine Ex: LE Protocol Supine Reps: 10 Worked on seated (L) LAQ with Min A, seated lateral wt shift to advance (L) hip flexion to 90 degrees Assessment Current Status: Fair Progress Pt showing progress with mobility. Pain limits activity and function. He will benefit from continued therapy. PT Short Term Goals Short Term Goals Time Frame: Dec 12, 2019 Roll Left & Right: 3 Sit to lyin Lying to sitting on side of be: 3 Sit to stand: 3 Chair/nkv-pb-vinqx transfer: 3 Walk 10 feet: 3 PT Delivery Associate Goals Half-Way Goals PT Half-Way Goals Time Frame: Dec 26, 2019 Roll Left & Right (QC): 4 Sit to Lying (QC): 3 (German) Lying-Sitting on Side/Bed(QC): 3 (German) Sit to Stand (QC): 3 (German) Chair/Ksz-on-Vhwtj Xfer(QC): 3 (German) Toilet Transfer (QC): 3 Car Transfer (QC): 3 (German) Does the Patient Walk: No and Walking Goal IS indicated Walk 10 feet (QC): 3 (German) Walk 50ft with 2 Turns (QC): 3 (German) Walk 150 ft (QC): 88 Walking 10ft on Uneven Surface: 88 1 Step (curb) (QC): 88 4 Steps (QC): 88 12 Steps (QC): 88 Picking up an Object (QC): 88 Does the Pt use WC or Scooter?: Yes Wheel 50 feet with 2 turns (QC: 6 Type: Manual Wheel 150 feet: 6 Type: Manual PT Plan Problem List Problem List: Activity Tolerance, Functional Strength, Balance, Gait, Transfer, Bed Mobility Treatment/Plan Treatment Plan: Continue Plan of Care Treatment Plan: Bed Mobility, Education, Functional Activity Swetha, Functional Strength, Group Therapy, Gait, Safety, Therapeutic Exercise, Transfers Treatment Duration: Dec 26, 2019 Frequency: At least 5 of 7 days/Wk (IRF) Estimated Hrs Per Day: 1.5 hours per day Patient and/or Family Agrees t: Yes Time/GCodes Time In: 904 Time Out: 100 Total Billed Treatment Time: 60 Total Billed Treatment visit, gait 15, ex 30 min, FA 15 min KEYUR GARAY PT Dec 07, 2019 12:41
[2019-12-07] MEDS: BISACODYL 10 MG SUPP (DULCOLAX) PR PRN (17:09)
[2019-12-07] MEDS: ENOXAPARIN 40 MG/0.4 ML (LOVENOX) SYR SC SCH (17:09)
[2019-12-07 18:01] VITALS: BP 134/67
[2019-12-08] MEDS: oxyCODONE/APAP 10/325MG (PERCOCET 10) TABLET PO PRN ×3 (00:20→12:22)
[2019-12-08 05:56] VITALS: BP 118/68
[2019-12-08] MEDS: inSUlin ASPART (NovoLOG) 1 UNIT/0.01 ML (CHARGE PER UNIT) SC SCH ×4 (06:24→20:23)
[2019-12-08] MEDS: GLIMEPIRIDE 1 MG (AMARYL) TAB PO SCH (06:28)
[2019-12-08 07:56] VITALS: BP 96/55
[2019-12-08] MEDS: DOCUSATE SODIUM 100 MG (COLACE) CAP PO SCH ×2 (09:38→21:12)
[2019-12-08] MEDS: oxyCODONE ER 20 MG (OxyCONTIN CR) TAB PO SCH ×2 (09:38→21:11)
[2019-12-08] MEDS: lisINopril 10 MG (PRINIVIL) TABLET PO SCH (09:38)
[2019-12-08] MEDS: SENNA W/DOCUSATE (SENOKOT S) TABLET PO SCH ×2 (09:38→21:12)
[2019-12-08] MEDS: polyethylene glycoL POWDER 17 GM (MIRALAX) PACK PO SCH ×2 (09:38→21:12)
--- NOTE | 2019-12-08 12:08 | PM&R Progress Note ---
Subjective HPI/CC On Admission Date Seen by Provider: Dec 08, 2019 Time Seen by Provider: 12:00 Subjective/Events-last exam Patient seems to be doing much better Pain meds will be scheduled Q6hrs since adding on the Oxycontin 20mg J87mzrip Percocet QID shelter prior to hip fracture BM large last night after multiple laxatives Overall much improved attitude Conferred with RN Reviewed therapy notes Checked meds and labs Review of Systems General: Fatigue Musculoskeletal: leg pain Objective Exam Vital Signs Vital Signs Date Time Temp Pulse Resp B/P (MAP) Pulse Ox O2 Delivery O2 Flow Rate FiO2 12/08/19 09:00 Room Air 12/08/19 07:56 88 96/55 (69) 12/08/19 05:56 37.0 20 98 Capillary Refill : Less Than 3 SecondsLess Than 3 Seconds General Appearance: No Apparent Distress, Anxious, Chronically ill, Thin HEENT: PERRL/EOMI, Normal ENT Inspection, Pharynx Normal Neck: Full Range of Motion, Normal Inspection, Non Tender, Supple, Carotid Bruit Respiratory: Chest Non Tender, Lungs Clear, Normal Breath Sounds, No Accessory Muscle Use, No Respiratory Distress Cardiovascular: Regular Rate, Rhythm, No Edema, No Gallop, No JVD, No Murmur, Normal Peripheral Pulses Gastrointestinal: Normal Bowel Sounds, No Organomegaly, No Pulsatile Mass, Non Tender, Soft Back: Normal Inspection, No CVA Tenderness, No Vertebral Tenderness Extremity: Normal Capillary Refill, Normal Inspection, Normal Range of Motion (except left leg from post op pain), Non Tender, No Calf Tenderness, No Pedal Edema Neurologic/Psychiatric: Alert, Oriented x3, No Motor/Sensory Deficits, [place] master II- XII Norm as Tested, Depressed Affect Skin: Normal Color, Warm/Dry Lymphatic: No Adenopathy Results/Procedures Lab Patient resulted labs reviewed. FIM Transfers Therapy Code Descriptions/Definitions Functional [place] Measure: 0=Not Assessed/NA 4=Minimal Assistance 1=Total Assistance 5=Supervision or Setup 2=Maximal Assistance 6=Modified [place] 3=Moderate Assistance 7=Complete IndependenceSCALE: Activities may be completed with or without assistive devices. 7-Bdkqygxlfb-oqahxas completes the activity by him/herself with no assistance from a helper. 5-Set-up or Clean-up Assistance-helper sets up or cleans up; patient completes activity. [place] assists only prior to or following the activity. 4-Supervision or Touching Assistance-helper provides verbal cues and/or touching/steadying and/or contact guard assistance as patient completes activity. Assistance may be provided throughout the activity or intermittently. 3-Partial/Moderate Assistance-helper does LESS THAN HALF the effort. [place] lifts, holds or supports trunk or limbs, but provides less than half the effort. 2-Substantial/Maximal Assistance-helper does MORE THAN HALF the effort. [place] lifts or holds trunk or limbs and provides more than half the effort. 3-Zobktjuzy-rwqxqf does ALL the effort. Patient does none of the effort to complete the activity. Or, the assistance of 2 or more helpers is required for the patient to complete the activity. If activity was not attempted, code reason: 7-Patient Refused. 9-Not Applicable-not attempted and the patient did not perform the activity before the current illness, exacerbation or injury. 10-Not Attempted due to Environmental Limitations-(lack of equipment, weather restraints, etc.). 88-Not Attempted due to Medical Conditions or Safety Concerns. Roll Left to Right (QC): 3 Sit to Lying (QC): 3 Sit to Stand (QC): 3 Chair/Ufl-bg-Bfyon Xfer(QC): 3 Car Transfer (QC): 2 Gait Training Does the Patient Walk?: Yes Distance: 8 Walk 10 feet (QC): 88 Walk 50 ft with 2 Turns(QC): 88 Walk 150 ft (QC): 88 Walking 10ft/uneven surface-QC: 88 Gait Assistive Device: Parallel Bars Wheelchair Training Does the Pt Use a Wheelchair?: Yes Distance: 150'x2 Wheel 50 ft with 2 turns (QC): 4 Wheel 150 ft (QC): 4 Type of Wheelchair: Manual Stair Training 1 Step (curb) (QC): 88 4 Steps (QC): 88 12 Steps (QC): 88 Balance Picking up an Object (QC): 88 ADL-Treatment Eating (QC): 5 (per report) Oral Hygiene (QC): 6 Shower/Bathe Self (QC): 2 (Pt. able to wash upper body with SBA/CGA. Increased time noted. Stood with max assist and OT able to wash rear ela area. Pt. did not allow for rest of legs to be washed due to pain. Pt. would be dependent with this task.) Upper Body Dressing (QC): 5 Lower Body Dressing (QC): 1 (Assessment would be that pt. would be dependent. Pt. required max assist to pull down/up pants and brief in stance. Did not allow for rest of pants to be pulled down.) On/Off Footwear (QC): 1 Toileting Hygiene (QC): 1 Toilet Transfer (QC): 1 Assessment/Plan Assessment and Plan Assess & Plan/Chief Complaint Assessment: Left femur fracture POD # 6 Post op anemia from acute blood loss Orthostatic hypotension requiring 500cc bolus IVF NS day after admit DM insulin dependency Chronic pain Narcotic dependent Chronic DJD back pain Thin build Poor reserve Chronic debility Frail status Poor nutrition Iron deficiency severe requiring IV Venofer Plan: Monitor labs Venofer Midline placement Monitor diabetes IRF protocol [place] with RONA's (1) Closed left femoral fracture (2) Frailty (3) Flat affect (4) Chronic pain (5) Narcotic dependence (6) Diabetes mellitus with insulin therapy (7) Thin build (8) Orthostasis (9) Postoperative anemia due to acute blood loss (10) Iron deficiency NORIS LESTER DO Dec 08, 2019 12:08
--- NOTE | 2019-12-08 13:15 | NUR ---
AQUACEL TO LEFT LATERAL HIP INCISION WAS SATURATED AND LEAKING, CLEANED WITH ALCOHOL WIPE AND [place] DRESSING APPLIED. SECOND AQUACEL MEDIAL THIGH MODERATELY SATURATED, MARKED SATURATION AREA AND LEFT IN PLACE. THIRD AQUACEL LOWER THIGH WITH MINIMAL SOILED AREA, MARKED SOILED AREA AND LEFT IN PLACE TO CONTINUE TO MONITOR.
[2019-12-08] MEDS: ENOXAPARIN 40 MG/0.4 ML (LOVENOX) SYR SC SCH (16:58)
[2019-12-08 17:03] VITALS: BP 104/59
[2019-12-08] MEDS: oxyCODONE/APAP 10/325MG (PERCOCET 10) TABLET PO SCH (18:40)
[2019-12-09] MEDS: oxyCODONE/APAP 10/325MG (PERCOCET 10) TABLET PO SCH ×4 (00:18→16:49)
[2019-12-09 05:00] VITALS: BP 115/69
[2019-12-09] MEDS: inSUlin ASPART (NovoLOG) 1 UNIT/0.01 ML (CHARGE PER UNIT) SC SCH ×4 (05:06→21:07)
[2019-12-09 05:43] LABS: BASOPHILS % (AUTO) 0 % (0-10); EOSINOPHILS # (AUTO) 0.3 10^3/uL (0.0-0.3); EOSINOPHILS % (AUTO) 6 % (0-10); HEMATOCRIT 24 % (40-54); HEMOGLOBIN 7.8 G/DL (13.3-17.7); LYMPHOCYTES # (AUTO) 0.9 X 10^3 (1.0-4.0); LYMPHOCYTES % (AUTO) 19 % (12-44); MEAN CORPUSCULAR HGB CONC 33 G/DL (32-36); MEAN CORPUSCULAR VOLUME 96 FL (80-99); MEAN PLATELET VOLUME 7.8 FL (7.4-10.4); MONOCYTES # (AUTO) 0.6 X 10^3 (0.0-1.0); MONOCYTES % (AUTO) 12 % (0-12); NEUTROPHILS % (AUTO) 63 % (42-75); PLATELET COUNT 330 10^3/uL (130-400); RED CELL DISTRIBUTION WIDTH 12.2 % (10.0-14.5); WHITE BLOOD COUNT 4.8 10^3/uL (4.3-11.0)
[2019-12-09 05:51] LABS: MEAN CORPUSCULAR HEMOGLOBIN 31 PG (25-34)
[2019-12-09 06:21] LABS: ALANINE AMINOTRANSFERASE 22 U/L (0-55); ALKALINE PHOSPHATASE 147 U/L (40-136); BUN/CREATININE RATIO 24; CALCIUM 8.3 MG/DL (8.5-10.1); CARBON DIOXIDE 23 MMOL/L (21-32); CHLORIDE 103 MMOL/L (98-107); GFR ESTIMATED > 60; GLUCOSE 125 MG/DL (70-105); POTASSIUM 4.2 MMOL/L (3.6-5.0); SODIUM 135 MMOL/L (135-145); TOTAL PROTEIN 5.2 GM/DL (6.4-8.2)
[2019-12-09] MEDS: GLIMEPIRIDE 1 MG (AMARYL) TAB PO SCH (06:25)
[2019-12-09] MEDS: lisINopril 10 MG (PRINIVIL) TABLET PO SCH (08:47)
[2019-12-09] MEDS: SENNA W/DOCUSATE (SENOKOT S) TABLET PO SCH ×2 (08:47→21:00)
[2019-12-09] MEDS: polyethylene glycoL POWDER 17 GM (MIRALAX) PACK PO SCH ×2 (08:47→21:00)
[2019-12-09] MEDS: IRON SUCROSE 200 MG/10 ML (VENOFER) VIAL IV SCH (08:47)
[2019-12-09] MEDS: oxyCODONE ER 20 MG (OxyCONTIN CR) TAB PO SCH ×3 (08:47→23:36)
[2019-12-09] MEDS: DOCUSATE SODIUM 100 MG (COLACE) CAP PO SCH ×2 (08:47→21:06)
[2019-12-09 09:59] VITALS: BP 78/51
--- NOTE | 2019-12-09 10:00 | NUR ---
WHILE WORKING WITH PHYSICAL THERAPY, PATIENT HAD A DECREASED IN BLOOD PRESSURE. RETURNED PT. TO BED. DR. LESTER NOTIFIED , NEW ORDER'S NOTED. SEE V/S INTERVENTION FOR FURTHER INFO.
--- NOTE | 2019-12-09 10:20 | NUR ---
Pastoral care visit.
--- NOTE | 2019-12-09 10:37 | Physical Therapy Daily Note ---
PT Daily Note-Current Subjective Patient states, "I just want to do my therapy slow and not push it." PT educated patient on importance of performing activity to ensure safe return to home at maximum LOF. Patient agrees. Pain Numeric Pain Scale: 8 Location: Left Location Body Site: Hip Pain Description: Acute Mental Status Patient Orientation: Normal For Age Transfers SCALE: Activities may be completed with or without assistive devices. 5-Migstiflob-wlyfktd completes the activity by him/herself with no assistance from a helper. 5-Set-up or Clean-up Assistance-helper sets up or cleans up; patient completes activity. [place] assists only prior to or following the activity. 4-Supervision or Touching Assistance-helper provides verbal cues and/or touching/steadying and/or contact guard assistance as patient completes activity. Assistance may be provided throughout the activity or intermittently. 3-Partial/Moderate Assistance-helper does LESS THAN HALF the effort. [place] lifts, holds or supports trunk or limbs, but provides less than half the effort. 2-Substantial/Maximal Assistance-helper does MORE THAN HALF the effort. [place] lifts or holds trunk or limbs and provides more than half the effort. 0-Fkuwilfxm-aetfxt does ALL the effort. Patient does none of the effort to complete the activity. Or, the assistance of 2 or more helpers is required for the patient to complete the activity. If activity was not attempted, code reason: 7-Patient Refused. 9-Not Applicable-not attempted and the patient did not perform the activity before the current illness, exacerbation or injury. 10-Not Attempted due to Environmental Limitations-(lack of equipment, weather restraints, etc.). 88-Not Attempted due to Medical Conditions or Safety Concerns. Roll Left & Right (QC): 5 Sit to Lying (QC): 4 Lying to Sitting/Side of Bed(Q: 4 Sit to Stand (QC): 4 Chair/Fzi-id-Kdejz Xfer(QC): 4 Weight Bearing Left Lower Extremity: Left Touch Toe Bearing Gait Training Does the Patient Walk?: Yes Distance: 50' x 4 Walk 10 feet (QC): 4 Walk 50 ft with 2 Turns(QC): 4 Walk 150 ft (QC): 88 Gait Assistive Device: FWW patient is able to maintain TTWB left LE with FWW. Patient fatigues with minimal distance and requires sitting recovery periods Exercises Supine Ex: Ankle pumps, Quad Set, Heel Slides, Hip abd/add Supine Reps: 10 (AAROM abd/add ) Seated Therapy Exercises: Long arc quads Seated Reps: 15 (4 sets during seated recovery periods from gait training) Assessment Patient did have c/o dizziness and BP taken with result of 78/51. NR present and patient returned to bed with recovery BP of 90/58. PT educated patient on importance of not self limiting and to increase activity. Patient voices understanding. PT to increase activity as tolerated by patient. Patient is currently able to maintain TTWB left LE without difficulty. PT Short Term Goals Short Term Goals Time Frame: Dec 12, 2019 Roll Left & Right: 3 Sit to lyin Lying to sitting on side of be: 3 Sit to stand: 3 Chair/uio-vr-hcayx transfer: 3 Walk 10 feet: 3 PT Boat Master Goals Boat Master Goals PT Group Home Goals Time Frame: Dec 26, 2019 Roll Left & Right (QC): 4 Sit to Lying (QC): 3 (German) Lying-Sitting on Side/Bed(QC): 3 (German) Sit to Stand (QC): 3 (German) Chair/Pfj-zs-Vuazg Xfer(QC): 3 (German) Toilet Transfer (QC): 3 Car Transfer (QC): 3 (German) Does the Patient Walk: No and Walking Goal IS indicated Walk 10 feet (QC): 3 (German) Walk 50ft with 2 Turns (QC): 3 (German) Walk 150 ft (QC): 88 Walking 10ft on Uneven Surface: 88 1 Step (curb) (QC): 88 4 Steps (QC): 88 12 Steps (QC): 88 Picking up an Object (QC): 88 Does the Pt use WC or Scooter?: Yes Wheel 50 feet with 2 turns (QC: 6 Type: Manual Wheel 150 feet: 6 Type: Manual PT Plan Treatment/Plan Treatment Plan: Continue Plan of Care Treatment Plan: Bed Mobility, Education, Functional Activity Swetha, Functional Strength, Group Therapy, Gait, Safety, Therapeutic Exercise, Transfers Treatment Duration: Dec 26, 2019 Frequency: At least 5 of 7 days/Wk (IRF) Estimated Hrs Per Day: 1.5 hours per day Patient and/or Family Agrees t: Yes Time/GCodes Time In: 905 Time Out: 1010 Total Billed Treatment Time: 65 Total Billed Treatment 1 visit GT x 3 44 min EX 21 min NATE ALVES PT Dec 09, 2019 10:37
--- NOTE | 2019-12-09 10:38 | PM&R Progress Note ---
Subjective HPI/CC On Admission Date Seen by Provider: Dec 09, 2019 Time Seen by Provider: 10:45 Subjective/Events-last exam Had a long conversation with patient about his pain and slow recovery Structured therapy is too strenuous for the patient and I am now recommending transfer to a nursing facility for a slower recovery Low BP requiring holding ACEi Took off RONA's since he thinks they are making pain increase Labs all stable BM+ Urinating well Very chronically ill and debilitated RN will call his and review all pain meds he is taking since I added Oxycontin 20mg BID that he has not been on before and scheduled Percocet Q6hrs which he has been on for years and considering his low BP we cannot increase pain meds and especially this many days after surgery he is having pain more than expected in a patient his age and habitus. Conferred with RN Reviewed therapy notes Checked meds and labs Review of Systems General: Fatigue Musculoskeletal: leg pain Objective Exam Vital Signs Vital Signs Date Time Temp Pulse Resp B/P (MAP) Pulse Ox O2 Delivery O2 Flow Rate FiO2 12/09/19 16:00 37.1 77 16 111/67 (82) 95 Room Air Capillary Refill : Less Than 3 SecondsLess Than 3 Seconds General Appearance: No Apparent Distress, Anxious, Chronically ill, Thin HEENT: PERRL/EOMI, Normal ENT Inspection, Pharynx Normal Neck: Full Range of Motion, Normal Inspection, Non Tender, Supple, Carotid Bruit Respiratory: Chest Non Tender, Lungs Clear, Normal Breath Sounds, No Accessory Muscle Use, No Respiratory Distress Cardiovascular: Regular Rate, Rhythm, No Edema, No Gallop, No JVD, No Murmur, Normal Peripheral Pulses Gastrointestinal: Normal Bowel Sounds, No Organomegaly, No Pulsatile Mass, Non Tender, Soft Back: Normal Inspection, No CVA Tenderness, No Vertebral Tenderness Extremity: Normal Capillary Refill, Normal Inspection, Normal Range of Motion (except left leg from post op pain), Non Tender, No Calf Tenderness, No Pedal Edema Neurologic/Psychiatric: Alert, Oriented x3, No Motor/Sensory Deficits, director of music therapy II- XII Norm as Tested, Depressed Affect Skin: Normal Color, Warm/Dry Lymphatic: No Adenopathy Results/Procedures Lab Laboratory Tests 12/09/19 05:30 Patient resulted labs reviewed. FIM Transfers Therapy Code Descriptions/Definitions Functional [place] Measure: 0=Not Assessed/NA 4=Minimal Assistance 1=Total Assistance 5=Supervision or Setup 2=Maximal Assistance 6=Modified [place] 3=Moderate Assistance 7=Complete IndependenceSCALE: Activities may be completed with or without assistive devices. 6-Fxfctumapy-mdmycal completes the activity by him/herself with no assistance from a helper. 5-Set-up or Clean-up Assistance-helper sets up or cleans up; patient completes activity. [place] assists only prior to or following the activity. 4-Supervision or Touching Assistance-helper provides verbal cues and/or touching/steadying and/or contact guard assistance as patient completes activity. Assistance may be provided throughout the activity or intermittently. 3-Partial/Moderate Assistance-helper does LESS THAN HALF the effort. [place] lifts, holds or supports trunk or limbs, but provides less than half the effort. 2-Substantial/Maximal Assistance-helper does MORE THAN HALF the effort. [place] lifts or holds trunk or limbs and provides more than half the effort. 9-Dtudjhmae-yhusxk does ALL the effort. Patient does none of the effort to complete the activity. Or, the assistance of 2 or more helpers is required for the patient to complete the activity. If activity was not attempted, code reason: 7-Patient Refused. 9-Not Applicable-not attempted and the patient did not perform the activity before the current illness, exacerbation or injury. 10-Not Attempted due to Environmental Limitations-(lack of equipment, weather restraints, etc.). 88-Not Attempted due to Medical Conditions or Safety Concerns. Roll Left to Right (QC): 3 Sit to Lying (QC): 3 Sit to Stand (QC): 3 Chair/Xpd-jb-Xdrrk Xfer(QC): 3 Car Transfer (QC): 2 Gait Training Does the Patient Walk?: Yes Distance: 8 Walk 10 feet (QC): 88 Walk 50 ft with 2 Turns(QC): 88 Walk 150 ft (QC): 88 Walking 10ft/uneven surface-QC: 88 Gait Assistive Device: Parallel Bars Wheelchair Training Does the Pt Use a Wheelchair?: Yes Distance: 150'x2 Wheel 50 ft with 2 turns (QC): 4 Wheel 150 ft (QC): 4 Type of Wheelchair: Manual Stair Training 1 Step (curb) (QC): 88 4 Steps (QC): 88 12 Steps (QC): 88 Balance Picking up an Object (QC): 88 ADL-Treatment Eating (QC): 5 (per report) Oral Hygiene (QC): 6 Shower/Bathe Self (QC): 2 (Pt. able to wash upper body with SBA/CGA. Increased time noted. Stood with max assist and OT able to wash rear ela area. Pt. did not allow for rest of legs to be washed due to pain. Pt. would be dependent with this task.) Upper Body Dressing (QC): 5 Lower Body Dressing (QC): 1 (Assessment would be that pt. would be dependent. Pt. required max assist to pull down/up pants and brief in stance. Did not allow for rest of pants to be pulled down.) On/Off Footwear (QC): 1 Toileting Hygiene (QC): 1 Toilet Transfer (QC): 1 Assessment/Plan Assessment and Plan Assess & Plan/Chief Complaint Assessment: Left femur fracture POD # 7 Post op anemia from acute blood loss Orthostatic hypotension requiring 500cc bolus IVF NS day after admit now holding ACEi DM insulin dependency Chronic pain Narcotic dependent Chronic DJD back pain Thin build Poor reserve Chronic debility Frail status Poor nutrition Iron deficiency severe requiring IV Venofer Plan: Monitor labs Venofer Midline placement Monitor diabetes IRF protocol [place] with RONA's if he can tolerate FCI placement needed because he cannot manage structured therapy required in IRF due to severe acute on chronic pain (1) Closed left femoral fracture (2) Frailty (3) Flat affect (4) Chronic pain (5) Narcotic dependence (6) Diabetes mellitus with insulin therapy (7) Thin build (8) Orthostasis (9) Postoperative anemia due to acute blood loss (10) Iron deficiency NORIS LESTER DO Dec 09, 2019 10:38
[2019-12-09 11:00] VITALS: BP 109/68
--- NOTE | 2019-12-09 13:30 | Physical Therapy Daily Note ---
PT Daily Note-Current Subjective Patient reports fatigue and agrees to exercises only. Pain Numeric Pain Scale: 10-Worst Possible Pain Location: Left Location Body Site: Hip Pain Description: Acute Comment: pain meds issued 20 min prior to treatment Mental Status Patient Orientation: Normal For Age Transfers SCALE: Activities may be completed with or without assistive devices. 9-Grybfpvvgx-zwsxmmj completes the activity by him/herself with no assistance from a helper. 5-Set-up or Clean-up Assistance-helper sets up or cleans up; patient completes activity. [place] assists only prior to or following the activity. 4-Supervision or Touching Assistance-helper provides verbal cues and/or touching/steadying and/or contact guard assistance as patient completes activit y. Assistance may be provided throughout the activity or intermittently. 3-Partial/Moderate Assistance-helper does LESS THAN HALF the effort. [place] lifts, holds or supports trunk or limbs, but provides less than half the effort. 2-Substantial/Maximal Assistance-helper does MORE THAN HALF the effort. [place] lifts or holds trunk or limbs and provides more than half the effort. 3-Pxuexenif-vvhvsu does ALL the effort. Patient does none of the effort to complete the activity. Or, the assistance of 2 or more helpers is required for the patient to complete the activity. If activity was not attempted, code reason: 7-Patient Refused. 9-Not Applicable-not attempted and the patient did not perform the activity before the current illness, exacerbation or injury. 10-Not Attempted due to Environmental Limitations-(lack of equipment, weather restraints, etc.). 88-Not Attempted due to Medical Conditions or Safety Concerns. Sit to Lying (QC): 3 Sit to Stand (QC): 4 Chair/Ewe-yk-Galgf Xfer(QC): 4 Weight Bearing Left Lower Extremity: Left Touch Toe Bearing Gait Training Does the Patient Walk?: Yes Distance: 10' Walk 10 feet (QC): 4 Gait Assistive Device: FWW TTWB left LE maintaining Exercises Supine Ex: Ankle pumps, Quad Set, Heel Slides, Short Arc Quads, Straight leg raise Supine Reps: 10 (2 sets bilaterally left LE AAROM) Assessment Patient is very emotional during treatment and reports he is too fatigued to continue. PT treatment complete. Patient is in bed with SCD's in place. PT Short Term Goals Short Term Goals Time Frame: Dec 12, 2019 Roll Left & Right: 3 Sit to lyin Lying to sitting on side of be: 3 Sit to stand: 3 Chair/lek-gj-obwvv transfer: 3 Walk 10 feet: 3 PT Senior Care Goals Senior Care Goals PT Type Copy Examiner Goals Time Frame: Dec 26, 2019 Roll Left & Right (QC): 4 Sit to Lying (QC): 3 (German) Lying-Sitting on Side/Bed(QC): 3 (German) Sit to Stand (QC): 3 (German) Chair/Awc-pd-Txfkh Xfer(QC): 3 (German) Toilet Transfer (QC): 3 Car Transfer (QC): 3 (German) Does the Patient Walk: No and Walking Goal IS indicated Walk 10 feet (QC): 3 (German) Walk 50ft with 2 Turns (QC): 3 (German) Walk 150 ft (QC): 88 Walking 10ft on Uneven Surface: 88 1 Step (curb) (QC): 88 4 Steps (QC): 88 12 Steps (QC): 88 Picking up an Object (QC): 88 Does the Pt use WC or Scooter?: Yes Wheel 50 feet with 2 turns (QC: 6 Type: Manual Wheel 150 feet: 6 Type: Manual PT Plan Treatment/Plan Treatment Plan: Continue Plan of Care Treatment Plan: Bed Mobility, Education, Functional Activity Swetha, Functional Strength, Group Therapy, Gait, Safety, Therapeutic Exercise, Transfers Treatment Duration: Dec 26, 2019 Frequency: At least 5 of 7 days/Wk (IRF) Estimated Hrs Per Day: 1.5 hours per day Patient and/or Family Agrees t: Yes Time/GCodes Time In: 1300 Time Out: 1325 Total Billed Treatment Time: 25 Total Billed Treatment 1 visit EX x 2 25 min NATE ALVES PT Dec 09, 2019 13:30
--- NOTE | 2019-12-09 13:48 | Occupational Ther Daily Note ---
OT Current Status-Daily Note Subjective Pt laying in bed at start of session, agreeable to OT tx this AM with focus on ADLs. ADL-Treatment Therapy Code Descriptions/Definitions Functional Burt Measure: 0=Not Assessed/NA 4=Minimal Assistance 1=Total Assistance 5=Supervision or Setup 2=Maximal Assistance 6=Modified Burt 3=Moderate Assistance 7=Complete IndependenceSCALE: Activities may be completed with or without assistive devices. 0-Mepnattlxm-xzujcyw completes the activity by him/herself with no assistance from a helper. 5-Set-up or Clean-up Assistance-helper sets up or cleans up; patient completes activity. [place] assists only prior to or following the activity. 4-Supervision or Touching Assistance-helper provides verbal cues and/or touching/steadying and/or contact guard assistance as patient completes activity. Assistance may be provided throughout the activity or intermittently. 3-Partial/Moderate Assistance-helper does LESS THAN HALF the effort. Monroe lifts, holds or supports trunk or limbs, but provides less than half the effort. 2-Substantial/Maximal Assistance-helper does MORE THAN HALF the effort. Monroe lifts or holds trunk or limbs and provides more than half the effort. 1-Lefhfvwed-qtlfio does ALL the effort. Patient does none of the effort to complete the activity. Or, the assistance of 2 or more helpers is required for the patient to complete the activity. If activity was not attempted, code reason: 7-Patient Refused. 9-Not Applicable-not attempted and the patient did not perform the activity before the current illness, exacerbation or injury. 10-Not Attempted due to Environmental Limitations-(lack of equipment, weather restraints, etc.). 88-Not Attempted due to Medical Conditions or Safety Concerns. Shower/Bathe Self (QC): 3 (Sponge bath. Pt able to wash upperbody, min A standing balance while pt washed buttocks and periarea, and pt able to wash RLE. OT assisted pt with washing/drying left lower leg/foot.) Upper Body Dressing (QC): 5 (set up) Lower Body Dressing (QC): 3 (Pt able to manage pants/underwear up/down, and oover RLE. Pt required assistance doffing and donning pants/underwear onto LLE. Min A standing balance at FWW during managing clothing up/down.) On/Off Footwear: 2 (Pt doffed sock and tedhose on right leg. He required assi stance donning sock/tedhose LLE. Total assistance to don socks due to fatigue.) Toileting Hygiene (QC): 3 (Pt stood at FWW to use urinal. Min A standing balance. Pt managed clothing up/down and placed urinal. He was also able to wash buttocks in standing. OT assisted with clean up of urinal.) Other Treatment Pt laying in bed at start of session, transferred to EOB with assistance of LLE. OT session with plans of showering, but pt later agreed to sponge bath since he did not want to get too fatigued since he still has more therapy in the afternoon. Pt completed sponge bath, dressing and using the urinal before transferring to the recliner. Post OT session pt seated in recliner, call light in reach and all needs met. Education OT Patient Education: Correct positioning, Energy conservation, Modified ADL techniques, Progress toward Goal/Update tx plan, Purpose of tx/functional activities, Safety issues, Transfer techniques Teaching Recipient: Patient Teaching Methods: Discussion Response to Teaching: Verbalize Understanding OT Short Term Goals Short Term Goals Time Frame: Dec 19, 2019 Eatin Oral hygiene: 5 Toileting hygiene: 3 Shower/bathe self: 3 Upper body dressin Lower body dressin Putting on/taking off footwear: 3 OT Satellite Dish Installer Goals Intermediate Goals Time Frame: Jan 02, 2020 Eating (QC): 6 Oral Hygiene (QC): 6 Toileting Hygiene (QC): 6 Shower/Bathe Self (QC): 6 Upper Body Dressing (QC): 6 Lower Body Dressing (QC): 6 On/Off Footwear (QC): 6 Additional Goals: 1-Demonstrate ADL Tasks, 2-Verbalize Understanding, 3- ImproveStrength/Swetha 1=Demonstrate adherence to instructed precautions during ADL tasks. 2=Patient will verbalize/demonstrate understanding of assistive devices/modifications for ADL. 3=Patient will improve strength/tolerance for activity to enable patient to perform ADL's. OT Education/Plan Problem List/Assessment Assessment: Decreased Activ Tolerance, Decreased UE Strength, Impaired Bed Mobility, Impaired Funct Balance, Impaired I ADL's, Impaired Self-Care Skills Discharge Recommendations Plan/Recommendations: Continue POC Treatment Plan/Plan of Care Patient would benefit from OT for education, treatment and training to promote independence in ADL's, mobility, safety and/or upper extremity function for ADL's. Plan of Care: ADL Retraining, Functional Mobility, Group Exercise/Act as Ind, UE Funct Exercise/Act Treatment Duration: Dec 19, 2019 Frequency: At least 5 of 7 days/Wk (IRF) Estimated Hrs Per Day: 1.5 hours per day Agreement: Yes Rehab Potential: Fair Time/GCodes Start Time: 11:00 Stop Time: 12:00 Total Time Billed (hr/min): 60 Billed Treatment Time 1, ADL 4 DIANA GARCIA OT Dec 09, 2019 13:48
--- NOTE | 2019-12-09 14:05 | Occupational Ther Daily Note ---
OT Current Status-Daily Note Subjective Pt laying in bed at start of session, agreeable to OT tx. Pt reports he feels worn out and he is not sure how much energy he has left for this tx. OT encouraged pt to participate the best he can. ADL-Treatment Therapy Code Descriptions/Definitions Functional Millen Measure: 0=Not Assessed/NA 4=Minimal Assistance 1=Total Assistance 5=Supervision or Setup 2=Maximal Assistance 6=Modified Millen 3=Moderate Assistance 7=Complete IndependenceSCALE: Activities may be completed with or without assistive devices. 4-Pbnwzeyylj-wcauldk completes the activity by him/herself with no assistance from a helper. 5-Set-up or Clean-up Assistance-helper sets up or cleans up; patient completes activity. [place] assists only prior to or following the activity. 4-Supervision or Touching Assistance-helper provides verbal cues and/or t ouching/steadying and/or contact guard assistance as patient completes activity. Assistance may be provided throughout the activity or intermittently. 3-Partial/Moderate Assistance-helper does LESS THAN HALF the effort. [place] lifts, holds or supports trunk or limbs, but provides less than half the effort. 2-Substantial/Maximal Assistance-helper does MORE THAN HALF the effort. [place] lifts or holds trunk or limbs and provides more than half the effort. 7-Pddjhqpcd-wgbiub does ALL the effort. Patient does none of the effort to complete the activity. Or, the assistance of 2 or more helpers is required for the patient to complete the activity. If activity was not attempted, code reason: 7-Patient Refused. 9-Not Applicable-not attempted and the patient did not perform the activity before the current illness, exacerbation or injury. 10-Not Attempted due to Environmental Limitations-(lack of equipment, weather restraints, etc.). 88-Not Attempted due to Medical Conditions or Safety Concerns. Other Treatment Pt laying in bed. OT educated pt on yellow theraband exercises in order to increase BUE endurance and strength. Pt completed x15 reps each exercise, all planes with rest breaks between each exercise. Pt verbalized and demo'd unde rstanding of exercises. OT left theraband and diagram in pt's room, instructing him to perform exercises a few times a day, he verbalized understanding. Post OT session, pt laying in bed, call light in reach and all needs met. Education OT Patient Education: Correct positioning, Energy conservation, Exercise program, Progress toward Goal/Update tx plan, Purpose of tx/functional activities Teaching Recipient: Patient Teaching Methods: Demonstration, Discussion Response to Teaching: Verbalize Understanding, Return Demonstration OT Short Term Goals Short Term Goals Time Frame: Dec 19, 2019 Eatin Oral hygiene: 5 Toileting hygiene: 3 Shower/bathe self: 3 Upper body dressin Lower body dressin Putting on/taking off footwear: 3 OT Correction Goals Correction Goals Time Frame: Jan 02, 2020 Eating (QC): 6 Oral Hygiene (QC): 6 Toileting Hygiene (QC): 6 Shower/Bathe Self (QC): 6 Upper Body Dressing (QC): 6 Lower Body Dressing (QC): 6 On/Off Footwear (QC): 6 Additional Goals: 1-Demonstrate ADL Tasks, 2-Verbalize Understanding, 3- ImproveStrength/Swetha 1=Demonstrate adherence to instructed precautions during ADL tasks. 2=Patient will verbalize/demonstrate understanding of assistive devices/modifications for ADL. 3=Patient will improve strength/tolerance for activity to enable patient to perform ADL's. OT Education/Plan Problem List/Assessment Assessment: Decreased Activ Tolerance, Decreased UE Strength, Impaired Bed Mobility, Impaired Funct Balance, Impaired I ADL's, Impaired Self-Care Skills Discharge Recommendations Plan/Recommendations: Continue POC Treatment Plan/Plan of Care Patient would benefit from OT for education, treatment and training to promote independence in ADL's, mobility, safety and/or upper extremity function for ADL's. Plan of Care: ADL Retraining, Functional Mobility, Group Exercise/Act as Ind, UE Funct Exercise/Act Treatment Duration: Dec 19, 2019 Frequency: At least 5 of 7 days/Wk (IRF) Estimated Hrs Per Day: 1.5 hours per day Agreement: Yes Rehab Potential: Fair Time/GCodes Start Time: 13:30 Stop Time: 14:00 Total Time Billed (hr/min): 30 Billed Treatment Time 1, EX 2 DIANA GARCIA OT Dec 09, 2019 14:05
--- NOTE | 2019-12-09 15:15 | NUR ---
CM/SS CONCURRENT DOCUMENTATION Physician discussed with patient that he may require an environment and care plan that can allow a more manageable pace for him. Visited with patient, he reported he had already spoken to his Sherie Rebolledo maira thomas. Explosives Operator called Sherie to discuss Medicare Compare and facilities in the area around [place], [place]. Developed a list of community nursing homes and began contacts for referrals. Patient is insured [employer] which is additionally prohibitive regarding in-network/accepting facilities. REFERRALS COMPLETED: [facility], [facility] Contact: Andre FX: [phone] PH: [phone] Garret [place] Contact: Nan FX: [phone] PH: [phone] Justyna [place], [place] Contact: Juanita FX: [phone] PH: [phone] CONTACTED/DENIED: [facility] Contact: Melony Unable to accept [employer] Gold Choice except for the one with Michael Ramos. [facility] Contact: Mary Jo Insurance out of network and no isolation room available as required for new admissions. [facility] [place], [place] Contact: Elsy Paz, Admin Facility is not Medicare Certified at present, has only care home care patients. Not licensed to provide billable skilled services like therapies. [facility] No admissions at this time. Await responses from the three referrals completed. The goal would be to get patient as close to his home as possible.
[2019-12-09 16:00] VITALS: BP 111/67
[2019-12-09] MEDS: ENOXAPARIN 40 MG/0.4 ML (LOVENOX) SYR SC SCH (16:49)
[2019-12-09] MEDS: CATHETER FLUSH 10 ML SYR IV SCH ×2 (18:44→21:07)
[2019-12-09] MEDS: ZOLPIDEM 5 MG (AMBIEN) TAB PO PRN (21:05)
[2019-12-10] MEDS: oxyCODONE/APAP 10/325MG (PERCOCET 10) TABLET PO SCH ×6 (00:30→20:32)
[2019-12-10] MEDS: GLIMEPIRIDE 1 MG (AMARYL) TAB PO SCH (05:43)
[2019-12-10] MEDS: inSUlin ASPART (NovoLOG) 1 UNIT/0.01 ML (CHARGE PER UNIT) SC SCH ×4 (05:43→20:35)
[2019-12-10] MEDS: CATHETER FLUSH 10 ML SYR IV SCH ×3 (05:43→20:36)
[2019-12-10 06:00] VITALS: BP 143/83
--- NOTE | 2019-12-10 09:00 | NUR ---
COMPLAIN LIGHTHEADED WHEN WORKING WITH THERAPY. BP 78/58 AND HR 95. CHECKED AGAIN AND 86/58. AFTER BACK IN ROOM AND SITTING IN CHAIR BP 82/41 AND HR 99. COMPLAIN VERY FATIGUED AND REFUSED BREAKFAST. ASSISTED TO BED AND BP 95/58 AND HR 91 IN SUPINE POSITION. 2 MINUTES KRISTOPHER 116/[address] LESTER INFORMED. SCHEDULED OXY 20 MG BID DC'D AND PERCOCET CHANGED TO Q 4 HOURS. WILL START ON FLORINEF AND ENCOURAGE TEDS AND SYDNEY WRAPS.
[2019-12-10] MEDS: SENNA W/DOCUSATE (SENOKOT S) TABLET PO SCH ×2 (09:24→20:32)
[2019-12-10] MEDS: DOCUSATE SODIUM 100 MG (COLACE) CAP PO SCH ×2 (09:24→20:32)
[2019-12-10] MEDS: polyethylene glycoL POWDER 17 GM (MIRALAX) PACK PO SCH ×2 (09:32→20:32)
[2019-12-10] MEDS: oxyCODONE ER 20 MG (OxyCONTIN CR) TAB PO SCH (09:33)
--- NOTE | 2019-12-10 09:58 | Physical Therapy Daily Note ---
PT Daily Note-Current Subjective Patient is in bed and agrees to PT. Pain Numeric Pain Scale: 5-Moderate Pain Location: Left Location Body Site: Hip Pain Description: Acute Mental Status Patient Orientation: Normal For Age Transfers SCALE: Activities may be completed with or without assistive devices. 2-Urylxsmanc-fnlmjhw completes the activity by him/herself with no assistance from a helper. 5-Set-up or Clean-up Assistance-helper sets up or cleans up; patient completes activity. [place] assists only prior to or following the activity. 4-Supervision or Touching Assistance-helper provides verbal cues and/or touching/steadying and/or contact guard assistance as patient completes activity. Assistance may be provided throughout the activity or intermittently. 3-Partial/Moderate Assistance-helper does LESS THAN HALF the effort. [place] lifts, holds or supports trunk or limbs, but provides less than half the effort. 2-Substantial/Maximal Assistance-helper does MORE THAN HALF the effort. [place] lifts or holds trunk or limbs and provides more than half the effort. 2-Qtdnabbfe-tkrwng does ALL the effort. Patient does none of the effort to complete the activity. Or, the assistance of 2 or more helpers is required for the patient to complete the activity. If activity was not attempted, code reason: 7-Patient Refused. 9-Not Applicable-not attempted and the patient did not perform the activity before the current illness, exacerbation or injury. 10-Not Attempted due to Environmental Limitations-(lack of equipment, weather restraints, etc.). 88-Not Attempted due to Medical Conditions or Safety Concerns. Roll Left & Right (QC): 5 Lying to Sitting/Side of Bed(Q: 5 Sit to Stand (QC): 5 Chair/Jse-kp-Gugio Xfer(QC): 5 Weight Bearing Left Lower Extremity: Left Touch Toe Bearing Gait Training Does the Patient Walk?: Yes Distance: 50' x 6 Walk 10 feet (QC): 5 Walk 50 ft with 2 Turns(QC): 5 Walk 150 ft (QC): 88 Gait Assistive Device: FWW slow, antalgic step to sequence Exercises Supine Ex: Ankle pumps, Quad Set, Heel Slides, Short Arc Quads Supine Reps: 12 Seated Therapy Exercises: Long arc quads Seated Reps: 12 (4 sets) NuStep Minutes: 10 NuStep Workload: 5 (to increase strength and ROM left LE) Assessment Patient continues to have BP issues and low energy levels and requires recovery periods due to this. RN notified. Patient is progressing with treatment plan and is SBA with all mobility. Patient toileted self and performed hand and face washing and brushed teeth independently. Patient would like to go home at end of week. PT Short Term Goals Short Term Goals Time Frame: Dec 12, 2019 Roll Left & Right: 3 Sit to lyin Lying to sitting on side of be: 3 Sit to stand: 3 Chair/gmd-df-jhnpt transfer: 3 Walk 10 feet: 3 PT Mcfp Goals Mcfp Goals PT Mcfp Goals Time Frame: Dec 26, 2019 Roll Left & Right (QC): 4 Sit to Lying (QC): 3 (German) Lying-Sitting on Side/Bed(QC): 3 (German) Sit to Stand (QC): 3 (German) Chair/Qfp-xr-Ysxiq Xfer(QC): 3 (German) Toilet Transfer (QC): 3 Car Transfer (QC): 3 (German) Does the Patient Walk: No and Walking Goal IS indicated Walk 10 feet (QC): 3 (German) Walk 50ft with 2 Turns (QC): 3 (German) Walk 150 ft (QC): 88 Walking 10ft on Uneven Surface: 88 1 Step (curb) (QC): 88 4 Steps (QC): 88 12 Steps (QC): 88 Picking up an Object (QC): 88 Does the Pt use WC or Scooter?: Yes Wheel 50 feet with 2 turns (QC: 6 Type: Manual Wheel 150 feet: 6 Type: Manual PT Plan Treatment/Plan Treatment Plan: Continue Plan of Care Treatment Plan: Bed Mobility, Education, Functional Activity Swetha, Functional Strength, Group Therapy, Gait, Safety, Therapeutic Exercise, Transfers Treatment Duration: Dec 26, 2019 Frequency: At least 5 of 7 days/Wk (IRF) Estimated Hrs Per Day: 1.5 hours per day Patient and/or Family Agrees t: Yes Time/GCodes Time In: 750 Time Out: 910 Total Billed Treatment Time: 80 Total Billed Treatment 1 visit GT x 3 50 min EX x 2 30 min NATE ALVES PT Dec 10, 2019 09:58
[2019-12-10] MEDS ORDERED: FLUDROCORTISONE 0.1 MG (FLORINEF) TAB PO SCH (10:30)
--- NOTE | 2019-12-10 11:27 | PM&R Progress Note ---
Subjective HPI/CC On Admission Date Seen by Provider: Dec 10, 2019 Time Seen by Provider: 10:30 Subjective/Events-last exam Had a long conversation with patient about his pain and slow recovery again and the fact that his low BP is from narcotic use and we will attempt to try Florinef and SYDNEY and RONA's to decrease orthostasis Structured therapy is too strenuous for the patient and I am now recommending transfer to a nursing facility for a slower recovery if this issue does not improve Low BP requiring holding ACEi Standby assist at times if really encouraged by therapy Labs all stable and remain so BM+ Urinating well Very chronically ill and debilitated RN called his and reviewed all pain meds he is taking since I added Oxycontin 20mg BID that he has not been on before and scheduled Percocet Q6hrs which he has been on for years and considering his low BP we cannot increase pain meds and especially this many days after surgery he is having pain more than expected in a patient his age and habitus. I went ahead and changed the Oxycodone 10 to Q4 hrs and DC the Oxycontin now to see if that helps his BP. Patient requires A LOT OF NARCOTICS. Conferred with RN Reviewed therapy notes Checked meds and labs Review of Systems General: Fatigue Musculoskeletal: leg pain Objective Exam Vital Signs Vital Signs Date Time Temp Pulse Resp B/P (MAP) Pulse Ox O2 Delivery O2 Flow Rate FiO2 12/10/19 16:00 37.2 78 16 107/57 (74) 96 Room Air Capillary Refill : Less Than 3 SecondsLess Than 3 Seconds General Appearance: No Apparent Distress, Anxious, Chronically ill, Thin HEENT: PERRL/EOMI, Normal ENT Inspection, Pharynx Normal Neck: Full Range of Motion, Normal Inspection, Non Tender, Supple, Carotid Bruit Respiratory: Chest Non Tender, Lungs Clear, Normal Breath Sounds, No Accessory Muscle Use, No Respiratory Distress Cardiovascular: Regular Rate, Rhythm, No Edema, No Gallop, No JVD, No Murmur, Normal Peripheral Pulses Gastrointestinal: Normal Bowel Sounds, No Organomegaly, No Pulsatile Mass, Non Tender, Soft Back: Normal Inspection, No CVA Tenderness, No Vertebral Tenderness Extremity: Normal Capillary Refill, Normal Inspection, Normal Range of Motion (except left leg from post op pain), Non Tender, No Calf Tenderness, No Pedal Edema Neurologic/Psychiatric: Alert, Oriented x3, No Motor/Sensory Deficits, aquaculture farm manager II- XII Norm as Tested, Depressed Affect Skin: Normal Color, Warm/Dry Lymphatic: No Adenopathy Results/Procedures Lab Patient resulted labs reviewed. FIM Transfers Therapy Code Descriptions/Definitions Functional Clark Measure: 0=Not Assessed/NA 4=Minimal Assistance 1=Total Assistance 5=Supervision or Setup 2=Maximal Assistance 6=Modified Clark 3=Moderate Assistance 7=Complete IndependenceSCALE: Activities may be completed with or without assistive devices. 4-Tfkgdrxfpi-luxuvfo completes the activity by him/herself with no assistance from a helper. 5-Set-up or Clean-up Assistance-helper sets up or cleans up; patient completes activity. Mora assists only prior to or following the activity. 4-Supervision or Touching Assistance-helper provides verbal cues and/or touching/steadying and/or contact guard assistance as patient completes activity. Assistance may be provided throughout the activity or intermittently. 3-Partial/Moderate Assistance-helper does LESS THAN HALF the effort. Mora l ifts, holds or supports trunk or limbs, but provides less than half the effort. 2-Substantial/Maximal Assistance-helper does MORE THAN HALF the effort. Mora lifts or holds trunk or limbs and provides more than half the effort. 9-Aiaqrqbhl-ftlrhw does ALL the effort. Patient does none of the effort to complete the activity. Or, the assistance of 2 or more helpers is required for t he patient to complete the activity. If activity was not attempted, code reason: 7-Patient Refused. 9-Not Applicable-not attempted and the patient did not perform the activity before the current illness, exacerbation or injury. 10-Not Attempted due to Environmental Limitations-(lack of equipment, weather restraints, etc.). 88-Not Attempted due to Medical Conditions or Safety Concerns. Roll Left to Right (QC): 5 Sit to Lying (QC): 3 Sit to Stand (QC): 5 Chair/Tjh-ox-Preuv Xfer(QC): 5 Car Transfer (QC): 2 Gait Training Does the Patient Walk?: Yes Distance: 50' x 6 Walk 10 feet (QC): 5 Walk 50 ft with 2 Turns(QC): 5 Walk 150 ft (QC): 88 Walking 10ft/uneven surface-QC: 88 Gait Assistive Device: FWW Wheelchair Training Does the Pt Use a Wheelchair?: Yes Distance: 150'x2 Wheel 50 ft with 2 turns (QC): 4 Wheel 150 ft (QC): 4 Type of Wheelchair: Manual Stair Training 1 Step (curb) (QC): 88 4 Steps (QC): 88 12 Steps (QC): 88 Balance Picking up an Object (QC): 88 ADL-Treatment Eating (QC): 5 (per report) Oral Hygiene (QC): 6 Shower/Bathe Self (QC): 3 (Sponge bath. Pt able to wash upperbody, min A standing balance while pt washed buttocks and periarea, and pt able to wash RLE. OT assisted pt with washing/drying left lower leg/foot.) Upper Body Dressing (QC): 5 (set up) Lower Body Dressing (QC): 3 (Pt able to manage pants/underwear up/down, and oover RLE. Pt required assistance doffing and donning pants/underwear onto LLE. Min A standing balance at FWW during managing clothing up/down.) On/Off Footwear (QC): 2 (Pt doffed sock and tedhose on right leg. He required assistance donning sock/tedhose LLE. Total assistance to don socks due to fatigue.) Toileting Hygiene (QC): 3 (Pt stood at FWW to use urinal. Min A standing balance. Pt managed clothing up/down and placed urinal. He was also able to wash buttocks in standing. OT assisted with clean up of urinal.) Toilet Transfer (QC): 1 Assessment/Plan Assessment and Plan Assess & Plan/Chief Complaint Assessment: Left femur fracture POD # 8 Post op anemia from acute blood loss Orthostatic hypotension requiring 500cc bolus IVF NS day after admit now holding ACEi and stopped the Oxycontin and started Florinef and SYDNEY and RONA's on DM insulin dependency Chronic pain Narcotic dependent Chronic DJD back pain Thin build Poor reserve Chronic debility Frail status Poor nutrition Iron deficiency severe requiring IV Venofer Plan: Monitor labs Venofer Midline placement Monitor diabetes IRF protocol SYDNEY with RONA's if he can tolerate residential placement needed because he cannot manage structured therapy required in IRF due to severe acute on chronic pain if these measures I made today do not help (1) Closed left femoral fracture (2) Frailty (3) Flat affect (4) Chronic pain (5) Narcotic dependence (6) Diabetes mellitus with insulin therapy (7) Thin build (8) Orthostasis (9) Postoperative anemia due to acute blood loss (10) Iron deficiency NORIS LESTER DO Dec 10, 2019 11:27
--- NOTE | 2019-12-10 11:45 | Occupational Ther Daily Note ---
OT Current Status-Daily Note Subjective On first attempt at 0915, pt declined to participate secondary to fatigue. On second attempt, pt agrees with encouragement. Pt reports pain in left hip. Pt reports being very fatigued this morning. ADL-Treatment Pt supine to sit with assist for left LE. Sit to stand with SBA and increased time. Transfer to chair with CGA using FWW, cues for WB status. Pt declined shower this morning secondary to fatigue. Pt agrees to attempt tomorrow. Pt completed sponge bath seated in chair. Doff shirt without assist. Pt doffed pants/underwear using dressing stick to doff over left foot. Upper body bathing completed with set up. Pt stood with CGA to wash buttocks and ela area. Pt used long handled sponge to wash lower legs and feet. Don pullover shirt with set up. Pt used ribbon winder to thread left LE into Depends and pants with min assist. Stood with min assist for pant hike. Pt donned right sock with SBA. Required mod assist to don left sock with sock aid. Pt combed hair with set up. Pt stood to use urinal with CGA for balance. Pt able to manage clothing. Transfer to EOB with CGA using FWW. Sit to supine with assist for LE. Pt moves very slowly and requires increased time for ADLs and functional mobility. Pt requires rest breaks throughout treatment. Pt resting in bed with needs met and RN present after session. Therapy Code Descriptions/Definitions Functional [place] Measure: 0=Not Assessed/NA 4=Minimal Assistance 1=Total Assistance 5=Supervision or Setup 2=Maximal Assistance 6=Modified Bent 3=Moderate Assistance 7=Complete IndependenceSCALE: Activities may be completed with or without assistive devices. 0-Oxwnxdivld-eoxhygi completes the activity by him/herself with no assistance from a helper. 5-Set-up or Clean-up Assistance-helper sets up or cleans up; patient completes activity. [place] assists only prior to or following the activity. 4-Supervision or Touching Assistance-helper provides verbal cues and/or touching/steadying and/or contact guard assistance as patient completes activity. Assistance may be provided throughout the activity or intermittently. 3-Partial/Moderate Assistance-helper does LESS THAN HALF the effort. [place] lifts, holds or supports trunk or limbs, but provides less than half the effort. 2-Substantial/Maximal Assistance-helper does MORE THAN HALF the effort. [place] lifts or holds trunk or limbs and provides more than half the effort. 7-Yzgwfiixd-txsial does ALL the effort. Patient does none of the effort to complete the activity. Or, the assistance of 2 or more helpers is required for the patient to complete the activity. If activity was not attempted, code reason: 7-Patient Refused. 9-Not Applicable-not attempted and the patient did not perform the activity be fore the current illness, exacerbation or injury. 10-Not Attempted due to Environmental Limitations-(lack of equipment, weather restraints, etc.). 88-Not Attempted due to Medical Conditions or Safety Concerns. Shower/Bathe Self (QC): 3 Upper Body Dressing (QC): 5 Lower Body Dressing (QC): 3 On/Off Footwear: 3 Education OT Patient Education: Modified ADL techniques Teaching Recipient: Patient Teaching Methods: Demonstration, Discussion Response to Teaching: Verbalize Understanding, Return Demonstration OT Short Term Goals Short Term Goals Time Frame: Dec 19, 2019 Eatin Oral hygiene: 5 Toileting hygiene: 3 Shower/bathe self: 3 Upper body dressin Lower body dressin Putting on/taking off footwear: 3 OT Half-Way Goals Air Tank Assembler Goals Time Frame: Jan 02, 2020 Eating (QC): 6 Oral Hygiene (QC): 6 Toileting Hygiene (QC): 6 Shower/Bathe Self (QC): 6 Upper Body Dressing (QC): 6 Lower Body Dressing (QC): 6 On/Off Footwear (QC): 6 Additional Goals: 1-Demonstrate ADL Tasks, 2-Verbalize Understanding, 3- ImproveStrength/Swetha 1=Demonstrate adherence to instructed precautions during ADL tasks. 2=Patient will verbalize/demonstrate understanding of assistive devices/mod ifications for ADL. 3=Patient will improve strength/tolerance for activity to enable patient to perform ADL's. OT Education/Plan Discharge Recommendations Plan/Recommendations: Continue POC Treatment Plan/Plan of Care Patient would benefit from OT for education, treatment and training to promote independence in ADL's, mobility, safety and/or upper extremity function for ADL's. Plan of Care: ADL Retraining, Functional Mobility, Group Exercise/Act as Ind, UE Funct Exercise/Act Treatment Duration: Dec 19, 2019 Frequency: At least 5 of 7 days/Wk (IRF) Estimated Hrs Per Day: 1.5 hours per day Agreement: Yes Rehab Potential: Fair Time/GCodes Start Time: 10:15 Stop Time: 11:30 Total Time Billed (hr/min): 75 Billed Treatment Time 1 visit, ADLx5(75minutes) RAMON WILL OT Dec 10, 2019 11:45
--- NOTE | 2019-12-10 13:12 | Physical Therapy Daily Note ---
PT Daily Note-Current Subjective Patient is in bed. Agrees to PT. Pain Numeric Pain Scale: 5-Moderate Pain Location: Left Location Body Site: Hip Mental Status Patient Orientation: Normal For Age Transfers SCALE: Activities may be completed with or without assistive devices. 6-Rbjdmvyjdy-jjrhlyu completes the activity by him/herself with no assistance from a helper. 5-Set-up or Clean-up Assistance-helper sets up or cleans up; patient completes activity. [place] assists only prior to or following the activity. 4-Supervision or Touching Assistance-helper provides verbal cues and/or touching/steadying and/or contact guard assistance as patient completes activity. Assistance may be provided throughout the activity or intermittently. 3-Partial/Moderate Assistance-helper does LESS THAN HALF the effort. [place] lifts, holds or supports trunk or limbs, but provides less than half the effort. 2-Substantial/Maximal Assistance-helper does MORE THAN HALF the effort. [place] lifts or holds trunk or limbs and provides more than half the effort. 0-Cmynvkwwa-ygthuu does ALL the effort. Patient does none of the effort to complete the activity. Or, the assistance of 2 or more helpers is required for the patient to complete the activity. If activity was not attempted, code reason: 7-Patient Refused. 9-Not Applicable-not attempted and the patient did not perform the activity before the current illness, exacerbation or injury. 10-Not Attempted due to Environmental Limitations-(lack of equipment, weather restraints, etc.). 88-Not Attempted due to Medical Conditions or Safety Concerns. Roll Left & Right (QC): 6 patient repositioned to side lying left independently after treatment Weight Bearing Left Lower Extremity: Left Touch Toe Bearing Exercises Supine Ex: Ankle pumps, Quad Set, Rolling, Glut sets, Heel Slides, Straight leg raise Supine Reps: 10 Assessment Patient tolerated treatment well and repositioned self to side lying left independently. Patient progressing with treatment plan. PT Short Term Goals Short Term Goals Time Frame: Dec 12, 2019 Roll Left & Right: 3 Sit to lyin Lying to sitting on side of be: 3 Sit to stand: 3 Chair/ent-ng-utsgf transfer: 3 Walk 10 feet: 3 PT Chcf Goals Chcf Goals PT Chcf Goals Time Frame: Dec 26, 2019 Roll Left & Right (QC): 4 Sit to Lying (QC): 3 (German) Lying-Sitting on Side/Bed(QC): 3 (German) Sit to Stand (QC): 3 (German) Chair/Wso-yc-Ykclt Xfer(QC): 3 (German) Toilet Transfer (QC): 3 Car Transfer (QC): 3 (German) Does the Patient Walk: No and Walking Goal IS indicated Walk 10 feet (QC): 3 (German) Walk 50ft with 2 Turns (QC): 3 (German) Walk 150 ft (QC): 88 Walking 10ft on Uneven Surface: 88 1 Step (curb) (QC): 88 4 Steps (QC): 88 12 Steps (QC): 88 Picking up an Object (QC): 88 Does the Pt use WC or Scooter?: Yes Wheel 50 feet with 2 turns (QC: 6 Type: Manual Wheel 150 feet: 6 Type: Manual PT Plan Treatment/Plan Treatment Plan: Continue Plan of Care Treatment Plan: Bed Mobility, Education, Functional Activity Swetha, Functional Strength, Group Therapy, Gait, Safety, Therapeutic Exercise, Transfers Treatment Duration: Dec 26, 2019 Frequency: At least 5 of 7 days/Wk (IRF) Estimated Hrs Per Day: 1.5 hours per day Patient and/or Family Agrees t: Yes Time/GCodes Time In: 1255 Time Out: 1305 Total Billed Treatment Time: 10 Total Billed Treatment 1 visit EX 10 min NATE ALVES PT Dec 10, 2019 13:12
--- NOTE | 2019-12-10 13:56 | Occupational Ther Daily Note ---
OT Current Status-Daily Note Subjective Pt resting in bed, agrees to therapy. Pt reports 7/10 pain in left hip. ADL-Treatment Therapy Code Descriptions/Definitions Functional [place] Measure: 0=Not Assessed/NA 4=Minimal Assistance 1=Total Assistance 5=Supervision or Setup 2=Maximal Assistance 6=Modified [place] 3=Moderate Assistance 7=Complete IndependenceSCALE: Activities may be completed with or without assistive devices. 4-Zwtdzdudwq-fwvvkhv completes the activity by him/herself with no assistance from a helper. 5-Set-up or Clean-up Assistance-helper sets up or cleans up; patient completes activity. [place] assists only prior to or following the activity. 4-Supervision or Touching Assistance-helper provides verbal cues and/or touching/steadying and/or contact guard assistance as patient completes activity. Assistance may be provided throughout the activity or intermittently. 3-Partial/Moderate Assistance-helper does LESS THAN HALF the effort. [place] lifts, holds or supports trunk or limbs, but provides less than half the effort. 2-Substantial/Maximal Assistance-helper does MORE THAN HALF the effort. [place] lifts or holds trunk or limbs and provides more than half the effort. 3-Ugzpdiinv-tqaqpy does ALL the effort. Patient does none of the effort to complete the activity. Or, the assistance of 2 or more helpers is required for the patient to complete the activity. If activity was not attempted, code reason: 7-Patient Refused. 9-Not Applicable-not attempted and the patient did not perform the activity before the current illness, exacerbation or injury. 10-Not Attempted due to Environmental Limitations-(lack of equipment, weather restraints, etc.). 88-Not Attempted due to Medical Conditions or Safety Concerns. Other Treatment Pt completed bilateral UE exercises to increase strength needed for ADLs and transfers. Pt performed shoulder flexion, abduction, biceps curls, and triceps extension exercises x15 reps with mild resistance (yellow) theraband. Rest breaks between exercises. Skilled cues for proper exercise technique. Pt resting in bed with needs met after session. OT Short Term Goals Short Term Goals Time Frame: Dec 19, 2019 Eatin Oral hygiene: 5 Toileting hygiene: 3 Shower/bathe self: 3 Upper body dressin Lower body dressin Putting on/taking off footwear: 3 OT Upholstery Auto Trimmer Goals Upholstery Auto Trimmer Goals Time Frame: Jan 02, 2020 Eating (QC): 6 Oral Hygiene (QC): 6 Toileting Hygiene (QC): 6 Shower/Bathe Self (QC): 6 Upper Body Dressing (QC): 6 Lower Body Dressing (QC): 6 On/Off Footwear (QC): 6 Additional Goals: 1-Demonstrate ADL Tasks, 2-Verbalize Understanding, 3- ImproveStrength/Swetha 1=Demonstrate adherence to instructed precautions during ADL tasks. 2=Patient will verbalize/demonstrate understanding of assistive devices/modifications for ADL. 3=Patient will improve strength/tolerance for activity to enable patient to perform ADL's. OT Education/Plan Discharge Recommendations Plan/Recommendations: Continue POC Treatment Plan/Plan of Care Patient would benefit from OT for education, treatment and training to promote independence in ADL's, mobility, safety and/or upper extremity function for AD L's. Plan of Care: ADL Retraining, Functional Mobility, Group Exercise/Act as Ind, UE Funct Exercise/Act Treatment Duration: Dec 19, 2019 Frequency: At least 5 of 7 days/Wk (IRF) Estimated Hrs Per Day: 1.5 hours per day Agreement: Yes Rehab Potential: Fair Time/GCodes Start Time: 13:30 Stop Time: 13:45 Total Time Billed (hr/min): 15 Billed Treatment Time 1 visit, EX(15minutes) RAMON WILL OT Dec 10, 2019 13:56
--- NOTE | 2019-12-10 13:59 | NUR ---
CM/SS CONCURRENT DOCUMENTATION Response from [facility] Zeng that referral would require more extensive exploration. They are currently working with a patient with same insurance, difficulty meeting insurance requirements to qualify for benefit payment. They will continue to consider patient but would want a confirmed discharge plan in partnership with spouse. Discussed with physician this a.m. regarding complexity of potential for SNF placement due to [employer] and Covid19 pandemic and NH admit protocols. Care plan continuing to seek a balanced pain control regime due to effects on patient's overall stability and participation with therapy. Justyna Zeng/Juanita will keep patient's referral on hold at this time. No other facilities have responded. Addendum: 12/10/19 at 1418 by MARTÍN KILGORE Response from [facility] with additional inquiries. Nan asked if patient would require more than 20 days skilled services, this is doubtful but can not confirm. Would patient be applying for [place] Medicaid for co-pay, no because he already has [place] Medicaid and resides in [place]. Would mixing tank operator order 30 days of narcotics for pain management because their covering physician is not willing, no not likely. Who is PCP (which was provided at time of referral), Dr. Og Lantigua in [place]. Await confirmation re patient being considering for admission.
[2019-12-10 16:00] VITALS: BP 107/57
--- NOTE | 2019-12-10 16:00 | NUR ---
SALINE LOCK IN LEFT FOREARM NO LONGER NEEDED AND DC'D. UP TO BATHROOM AND THEN TO CHAIR.
[2019-12-10] MEDS: ENOXAPARIN 40 MG/0.4 ML (LOVENOX) SYR SC SCH (16:07)
--- NOTE | 2019-12-10 18:00 | NUR ---
BP STABLE THIS AFTERNOON. TOLERATING ACTIVITY FAIRLY WELL.
[2019-12-11] MEDS: oxyCODONE/APAP 10/325MG (PERCOCET 10) TABLET PO SCH ×7 (00:22→23:51)
[2019-12-11 06:00] VITALS: BP 118/66
[2019-12-11] MEDS: GLIMEPIRIDE 1 MG (AMARYL) TAB PO SCH (06:09)
[2019-12-11] MEDS: CATHETER FLUSH 10 ML SYR IV SCH ×3 (06:09→20:07)
[2019-12-11] MEDS: FLUDROCORTISONE 0.1 MG (FLORINEF) TAB PO SCH ×2 (06:09→07:55)
[2019-12-11] MEDS: inSUlin ASPART (NovoLOG) 1 UNIT/0.01 ML (CHARGE PER UNIT) SC SCH ×4 (06:10→20:37)
[2019-12-11] MEDS: SENNA W/DOCUSATE (SENOKOT S) TABLET PO SCH ×2 (07:55→20:08)
[2019-12-11] MEDS: IRON SUCROSE 200 MG/10 ML (VENOFER) VIAL IV SCH (07:56)
[2019-12-11] MEDS: DOCUSATE SODIUM 100 MG (COLACE) CAP PO SCH ×2 (07:56→20:08)
[2019-12-11] MEDS: polyethylene glycoL POWDER 17 GM (MIRALAX) PACK PO SCH ×2 (07:56→20:08)
--- NOTE | 2019-12-11 09:13 | Physical Therapy Daily Note ---
PT Daily Note-Current Subjective Pt. just completing with OT, agrees to PT but states he needs a rest break. Pain Numeric Pain Scale: 8 Location: Left Location Body Site: Hip Mental Status Patient Orientation: Person, Place, Time, Situation Attachments: IV patient receiving iron Transfers SCALE: Activities may be completed with or without assistive devices. 8-Pbjedsjrwu-ssnmntq completes the activity by him/herself with no assistance from a helper. 5-Set-up or Clean-up Assistance-helper sets up or cleans up; patient completes activity. [place] assists only prior to or following the activity. 4-Supervision or Touching Assistance-helper provides verbal cues and/or touching/steadying and/or contact guard assistance as patient completes activity. Assistance may be provided throughout the activity or intermittently. 3-Partial/Moderate Assistance-helper does LESS THAN HALF the effort. [place] lifts, holds or supports trunk or limbs, but provides less than half the effort. 2-Substantial/Maximal Assistance-helper does MORE THAN HALF the effort. [place] lifts or holds trunk or limbs and provides more than half the effort. 2-Aswgsypeu-ngcjid does ALL the effort. Patient does none of the effort to complete the activity. Or, the assistance of 2 or more helpers is required for the patient to complete the activity. If activity was not attempted, code reason: 7-Patient Refused. 9-Not Applicable-not attempted and the patient did not perform the activity before the current illness, exacerbation or injury. 10-Not Attempted due to Environmental Limitations-(lack of equipment, weather restraints, etc.). 88-Not Attempted due to Medical Conditions or Safety Concerns. Sit to Lying (QC): 3 Sit to Stand (QC): 4 Weight Bearing Right Lower Extremity: Right Full Weight Bearing Left Lower Extremity: Left Touch Toe Bearing Gait Training Does the Patient Walk?: Yes Distance: 2 x 50 ft, 2 x 30 ft, x 75 ft Walk 10 feet (QC): 4 Walk 50 ft with 2 Turns(QC): 4 Gait Persons Needed: 1 Gait Assistive Device: FWW slow, antalgic gait, utilizes step-to pattern Exercises NuStep Minutes: 15 NuStep Workload: 4 Treatments Nustep, gait, transfers Assessment Current Status: Good Progress, Fair Progress Pt. continues to fatigue with ambulation requiring seated rest periods between sets of gait. Pt. reports his limiting factor is L hip pain with ambulating and he requires frequent encouragement to increase ambulation distance. Pt. in bed post session with call light and all needs met. PT Short Term Goals Short Term Goals Time Frame: Dec 12, 2019 Roll Left & Right: 3 Sit to lyin Lying to sitting on side of be: 3 Sit to stand: 3 Chair/ezc-bd-mpzzt transfer: 3 Walk 10 feet: 3 PT Penitentiary Goals Penitentiary Goals PT French Drawer Goals Time Frame: Dec 26, 2019 Roll Left & Right (QC): 4 Sit to Lying (QC): 3 (German) Lying-Sitting on Side/Bed(QC): 3 (German) Sit to Stand (QC): 3 (German) Chair/Kmx-ss-Odyjs Xfer(QC): 3 (German) Toilet Transfer (QC): 3 Car Transfer (QC): 3 (German) Does the Patient Walk: No and Walking Goal IS indicated Walk 10 feet (QC): 3 (German) Walk 50ft with 2 Turns (QC): 3 (German) Walk 150 ft (QC): 88 Walking 10ft on Uneven Surface: 88 1 Step (curb) (QC): 88 4 Steps (QC): 88 12 Steps (QC): 88 Picking up an Object (QC): 88 Does the Pt use WC or Scooter?: Yes Wheel 50 feet with 2 turns (QC: 6 Type: Manual Wheel 150 feet: 6 Type: Manual PT Plan Treatment/Plan Treatment Plan: Continue Plan of Care Treatment Plan: Bed Mobility, Education, Functional Activity Swetha, Functional Strength, Group Therapy, Gait, Safety, Therapeutic Exercise, Transfers Treatment Duration: Dec 26, 2019 Frequency: At least 5 of 7 days/Wk (IRF) Estimated Hrs Per Day: 1.5 hours per day Patient and/or Family Agrees t: Yes Time/GCodes Time In: 900 Time Out: 1015 Total Billed Treatment Time: 75 Total Billed Treatment 1, Ex 15', GT 45', FA 15' DEJA JADE PT Dec 11, 2019 09:13
--- NOTE | 2019-12-11 10:58 | Occupational Ther Daily Note ---
OT Current Status-Daily Note Subjective Pt laying in bed at start of session, agreeable to OT tx with focus on showering. He reports some pain in his low back/hip but did not verbalize a pain rating. ADL-Treatment Therapy Code Descriptions/Definitions Functional [place] Measure: 0=Not Assessed/NA 4=Minimal Assistance 1=Total Assistance 5=Supervision or Setup 2=Maximal Assistance 6=Modified [place] 3=Moderate Assistance 7=Complete IndependenceSCALE: Activities may be completed with or without assistive devices. 0-Ecyhrlviop-mfmwdha completes the activity by him/herself with no assistance from a helper. 5-Set-up or Clean-up Assistance-helper sets up or cleans up; patient completes activity. [place] assists only prior to or following the activity. 4-Supervision or Touching Assistance-helper provides verbal cues and/or touching/steadying and/or contact guard assistance as patient completes activity. Assistance may be provided throughout the activity or intermittently. 3-Partial/Moderate Assistance-helper does LESS THAN HALF the effort. [place] lifts, holds or supports trunk or limbs, but provides less than half the effort. 2-Substantial/Maximal Assistance-helper does MORE THAN HALF the effort. [place] lifts or holds trunk or limbs and provides more than half the effort. 7-Izwtxjsyu-kvfmqp does ALL the effort. Patient does none of the effort to complete the activity. Or, the assistance of 2 or more helpers is required for the patient to complete the activity. If activity was not attempted, code reason: 7-Patient Refused. 9-Not Applicable-not attempted and the patient did not perform the activity bef ore the current illness, exacerbation or injury. 10-Not Attempted due to Environmental Limitations-(lack of equipment, weather r estraints, etc.). 88-Not Attempted due to Medical Conditions or Safety Concerns. Shower/Bathe Self (QC): 4 (CGA during stand at [facility]. Pt able to wash all parts with increased time due to pain) Toileting Hygiene (QC): 4 (CGA, pt voided urine standing in front of toilet with FWW.) Other Treatment Pt laying in bed, transferred supine to sit EOB with SBA. He then ambulated to the bathroom where he completed toileting and he doffed clothing for shower. No QC score given for dressing due to OT assisting with task because of time constraint. With doffing, pt able to doff lower body dressing increased time with AE, footwear he was able to doff socks using AE and increased time but required assistance doffing goldie hose. Pt able to doff shirt with set up. Pt completed shower, then OT assisted with donning clothes due to time constraint. Pt stood up from SC and OT assisted with pulling up pants/underwear, PT took over tx at this time. Post OT session, pt with PT, all needs met. Education OT Patient Education: Correct positioning, Energy conservation, Modified ADL techniques, Progress toward Goal/Update tx plan, Purpose of tx/functional activities, Transfer techniques, Use of adapted equipment Teaching Recipient: Patient Teaching Methods: Discussion Response to Teaching: Verbalize Understanding OT Short Term Goals Short Term Goals Time Frame: Dec 19, 2019 Eatin Oral hygiene: 5 Toileting hygiene: 3 Shower/bathe self: 3 Upper body dressin Lower body dressin Putting on/taking off footwear: 3 OT Utilization Management Nurse Goals Utilization Management Nurse Goals Time Frame: Jan 02, 2020 Eating (QC): 6 Oral Hygiene (QC): 6 Toileting Hygiene (QC): 6 Shower/Bathe Self (QC): 6 Upper Body Dressing (QC): 6 Lower Body Dressing (QC): 6 On/Off Footwear (QC): 6 Additional Goals: 1-Demonstrate ADL Tasks, 2-Verbalize Understanding, 3- ImproveStrength/Swetha 1=Demonstrate adherence to instructed precautions during ADL tasks. 2=Patient will verbalize/demonstrate understanding of assistive devic es/modifications for ADL. 3=Patient will improve strength/tolerance for activity to enable patient to perform ADL's. OT Education/Plan Problem List/Assessment Assessment: Decreased Activ Tolerance, Decreased UE Strength, Impaired Funct Balance, Impaired I ADL's, Impaired Self-Care Skills Discharge Recommendations Plan/Recommendations: Continue POC Treatment Plan/Plan of Care Patient would benefit from OT for education, treatment and training to promote independence in ADL's, mobility, safety and/or upper extremity function for ADL's. Plan of Care: ADL Retraining, Functional Mobility, Group Exercise/Act as Ind, UE Funct Exercise/Act Treatment Duration: Dec 19, 2019 Frequency: At least 5 of 7 days/Wk (IRF) Estimated Hrs Per Day: 1.5 hours per day Agreement: Yes Rehab Potential: Fair Time/GCodes Start Time: 08:00 Stop Time: 09:00 Total Time Billed (hr/min): 60 Billed Treatment Time 1, ADL 4 DIANA GARCIA OT Dec 11, 2019 10:58
--- NOTE | 2019-12-11 11:42 | Occupational Ther Daily Note ---
OT Current Status-Daily Note Subjective Pt laying in bed, agreed to OT tx at this time. He reports pain 8/10 in his back/right hip. ADL-Treatment Therapy Code Descriptions/Definitions Functional [place] Measure: 0=Not Assessed/NA 4=Minimal Assistance 1=Total Assistance 5=Supervision or Setup 2=Maximal Assistance 6=Modified [place] 3=Moderate Assistance 7=Complete IndependenceSCALE: Activities may be completed with or without assistive devices. 9-Vxsablhgzx-kmdurvu completes the activity by him/herself with no assistance from a helper. 5-Set-up or Clean-up Assistance-helper sets up or cleans up; patient completes activity. [place] assists only prior to or following the activity. 4-Supervision or Touching Assistance-helper provides verbal cues and/or touching/steadying and/or contact guard assistance as patient completes activity. Assistance may be provided throughout the activity or intermittently. 3-Partial/Moderate Assistance-helper does LESS THAN HALF the effort. [place] lifts, holds or supports trunk or limbs, but provides less than half the effort. 2-Substantial/Maximal Assistance-helper does MORE THAN HALF the effort. [place] lifts or holds trunk or limbs and provides more than half the effort. 5-Otgoeezzk-srkkdz does ALL the effort. Patient does none of the effort to complete the activity. Or, the assistance of 2 or more helpers is required for the patient to complete the activity. If activity was not attempted, code reason: 7-Patient Refused. 9-Not Applicable-not attempted and the patient did not perform the activity before the current illness, exacerbation or injury. 10-Not Attempted due to Environmental Limitations-(lack of equipment, weather restraints, etc.). 88-Not Attempted due to Medical Conditions or Safety Concerns. Eating (QC): 6 (per pt report he is able to open all containers and cut food. ) Other Treatment In order to increase BUE strength and functional endurance, pt completed BUE exercises with red theraband. Pt previously educated on exercises, but required mod cues for correct movements. Pt completed x15 reps each all planes, x2 sets, rest breaks as needed. Post OT tx, pt laying in bed, call light in reach and all needs met. Education OT Patient Education: Correct positioning, Energy conservation, Exercise program, Modified ADL techniques, Progress toward Goal/Update tx plan, Purpose of tx/functional activities Teaching Recipient: Patient Teaching Methods: Demonstration, Discussion Response to Teaching: Verbalize Understanding, Return Demonstration OT Short Term Goals Short Term Goals Time Frame: Dec 19, 2019 Eatin Oral hygiene: 5 Toileting hygiene: 3 Shower/bathe self: 3 Upper body dressin Lower body dressin Putting on/taking off footwear: 3 OT Nursing Home Goals Senior Budget Analyst Goals Time Frame: Jan 02, 2020 Eating (QC): 6 Oral Hygiene (QC): 6 Toileting Hygiene (QC): 6 Shower/Bathe Self (QC): 6 Upper Body Dressing (QC): 6 Lower Body Dressing (QC): 6 On/Off Footwear (QC): 6 Additional Goals: 1-Demonstrate ADL Tasks, 2-Verbalize Understanding, 3- ImproveStrength/Swetha 1=Demonstrate adherence to instructed precautions during ADL tasks. 2=Patient will verbalize/demonstrate understanding of assistive devices/modifications for ADL. 3=Patient will improve strength/tolerance for activity to enable patient to perform ADL's. OT Education/Plan Problem List/Assessment Assessment: Decreased Activ Tolerance, Decreased UE Strength, Impaired Funct Balance, Impaired I ADL's, Impaired Self-Care Skills Discharge Recommendations Plan/Recommendations: Continue POC Equpiment Recommendations-D/C: Extended Bath Bench, Hip Kit Treatment Plan/Plan of Care Patient would benefit from OT for education, treatment and training to promote independence in ADL's, mobility, safety and/or upper extremity function for ADL's. Plan of Care: ADL Retraining, Functional Mobility, Group Exercise/Act as Ind, UE Funct Exercise/Act Treatment Duration: Dec 19, 2019 Frequency: At least 5 of 7 days/Wk (IRF) Estimated Hrs Per Day: 1.5 hours per day Agreement: Yes Rehab Potential: Fair Time/GCodes Start Time: 11:30 Stop Time: 12:00 Total Time Billed (hr/min): 30 Billed Treatment Time 1, EX 2 DIANA GARCIA OT Dec 11, 2019 11:42
--- NOTE | 2019-12-11 12:28 | PM&R Progress Note ---
Subjective HPI/CC On Admission Date Seen by Provider: Dec 11, 2019 Time Seen by Provider: 11:00 Subjective/Events-last exam Patient doing much better pain ness and BP ness Rosalinda maintained at 0600 of 0.1mg daily BM+ 12/08/19 so suppository will be offered HH at DC 12/17/19 Urinating well Very chronically ill and debilitated RN called his and reviewed all pain meds he is taking since I added Oxycontin 20mg BID that he has not been on before and scheduled Percocet Q6hrs which he has been on for years and considering his low BP we cannot increase pain meds and especially this many days after surgery he is having pain more than expected in a patient his age and habitus. I went ahead and changed the Oxycodone 10 to Q4 hrs and DC the Oxycontin now to see if that helps his BP. Patient requires A LOT OF NARCOTICS. Conferred with RN Reviewed therapy notes Checked meds and labs Review of Systems General: Fatigue Gastrointestinal: Constipation Musculoskeletal: back pain, leg pain Objective Exam Vital Signs Vital Signs Date Time Temp Pulse Resp B/P (MAP) Pulse Ox O2 Delivery O2 Flow Rate FiO2 12/11/19 17:50 36.8 84 20 124/72 (89) 96 Room Air Capillary Refill : Less Than 3 SecondsLess Than 3 Seconds General Appearance: No Apparent Distress, Anxious, Chronically ill, Thin HEENT: PERRL/EOMI, Normal ENT Inspection, Pharynx Normal Neck: Full Range of Motion, Normal Inspection, Non Tender, Supple, Carotid Bruit Respiratory: Chest Non Tender, Lungs Clear, Normal Breath Sounds, No Accessory Muscle Use, No Respiratory Distress Cardiovascular: Regular Rate, Rhythm, No Edema, No Gallop, No JVD, No Murmur, Normal Peripheral Pulses Gastrointestinal: Normal Bowel Sounds, No Organomegaly, No Pulsatile Mass, Non Tender, Soft Back: Normal Inspection, No CVA Tenderness, No Vertebral Tenderness Extremity: Normal Capillary Refill, Normal Inspection, Normal Range of Motion (except left leg from post op pain), Non Tender, No Calf Tenderness, No Pedal Edema Neurologic/Psychiatric: Alert, Oriented x3, No Motor/Sensory Deficits, patcher helper II- XII Norm as Tested, Depressed Affect Skin: Normal Color, Warm/Dry Lymphatic: No Adenopathy Results/Procedures Lab Patient resulted labs reviewed. FIM Transfers Therapy Code Descriptions/Definitions Functional [place] Measure: 0=Not Assessed/NA 4=Minimal Assistance 1=Total Assistance 5=Supervision or Setup 2=Maximal Assistance 6=Modified [place] 3=Moderate Assistance 7=Complete IndependenceSCALE: Activities may be completed with or without assistive devices. 9-Nkmugectni-zrfladv completes the activity by him/herself with no assistance from a helper. 5-Set-up or Clean-up Assistance-helper sets up or cleans up; patient completes activity. [place] assists only prior to or following the activity. 4-Supervision or Touching Assistance-helper provides verbal cues and/or touching/steadying and/or contact guard assistance as patient completes activity. Assistance may be provided throughout the activity or intermittently. 3-Partial/Moderate Assistance-helper does LESS THAN HALF the effort. [place] lifts, holds or supports trunk or limbs, but provides less than half the effort. 2-Substantial/Maximal Assistance-helper does MORE THAN HALF the effort. [place] lifts or holds trunk or limbs and provides more than half the effort. 4-Pgnmnsvqp-klwepq does ALL the effort. Patient does none of the effort to complete the activity. Or, the assistance of 2 or more helpers is required for the patient to complete the activity. If activity was not attempted, code reason: 7-Patient Refused. 9-Not Applicable-not attempted and the patient did not perform the activity before the current illness, exacerbation or injury. 10-Not Attempted due to Environmental Limitations-(lack of equipment, weather restraints, etc.). 88-Not Attempted due to Medical Conditions or Safety Concerns. Roll Left to Right (QC): 6 Sit to Lying (QC): 3 Sit to Stand (QC): 4 Chair/Sbs-ot-Sdyjs Xfer(QC): 5 Car Transfer (QC): 2 Gait Training Does the Patient Walk?: Yes Distance: 2 x 50 ft, 2 x 30 ft, x 75 ft Walk 10 feet (QC): 4 Walk 50 ft with 2 Turns(QC): 4 Walk 150 ft (QC): 88 Walking 10ft/uneven surface-QC: 88 Gait Persons Needed: 1 Gait Assistive Device: FWW Wheelchair Training Does the Pt Use a Wheelchair?: Yes Distance: 150'x2 Wheel 50 ft with 2 turns (QC): 4 Wheel 150 ft (QC): 4 Type of Wheelchair: Manual Stair Training 1 Step (curb) (QC): 88 4 Steps (QC): 88 12 Steps (QC): 88 Balance Picking up an Object (QC): 88 ADL-Treatment Eating (QC): 6 (per pt report he is able to open all containers and cut food. ) Oral Hygiene (QC): 6 Shower/Bathe Self (QC): 4 (CGA during stand at GBs. Pt able to wash all parts with increased time due to pain) Upper Body Dressing (QC): 5 Lower Body Dressing (QC): 3 On/Off Footwear (QC): 3 Toileting Hygiene (QC): 4 (CGA, pt voided urine standing in front of toilet with FWW.) Toilet Transfer (QC): 1 Assessment/Plan Assessment and Plan Assess & Plan/Chief Complaint Assessment: Left femur fracture POD # 9 Post op anemia from acute blood loss Orthostatic hypotension requiring 500cc bolus IVF NS day after admit now holding ACEi and stopped the Oxycontin and started Florinef and SYDNEY and RONA's on DM insulin dependency Chronic pain Narcotic dependent Chronic DJD back pain Thin build Poor reserve Chronic debility Frail status Poor nutrition Iron deficiency severe requiring IV Venofer Plan: Monitor labs Venofer Midline placement Monitor diabetes IRF protocol SYDNEY with RONA's if he can tolerate USP placement may be needed because he cannot manage structured therapy required in IRF due to severe acute on chronic pain if these measures I made yesterday and today do not help (1) Closed left femoral fracture (2) Frailty (3) Flat affect (4) Chronic pain (5) Narcotic dependence (6) Diabetes mellitus with insulin therapy (7) Thin build (8) Orthostasis (9) Postoperative anemia due to acute blood loss (10) Iron deficiency NORIS LESTER DO Dec 11, 2019 12:28
--- NOTE | 2019-12-11 13:13 | Physical Therapy Daily Note ---
PT Daily Note-Current Subjective Pt. says "a little bit" of L hip pain. Reports they just gave him pain meds. Pt. agrees to PT. Mental Status Patient Orientation: Person, Place, Time, Situation Transfers SCALE: Activities may be completed with or without assistive devices. 2-Kqvzpilger-qalcgak completes the activity by him/herself with no assistance from a helper. 5-Set-up or Clean-up Assistance-helper sets up or cleans up; patient completes activity. [place] assists only prior to or following the activity. 4-Supervision or Touching Assistance-helper provides verbal cues and/or touching/steadying and/or contact guard assistance as patient completes act ivity. Assistance may be provided throughout the activity or intermittently. 3-Partial/Moderate Assistance-helper does LESS THAN HALF the effort. [place] lifts, holds or supports trunk or limbs, but provides less than half the effort. 2-Substantial/Maximal Assistance-helper does MORE THAN HALF the effort. [place] lifts or holds trunk or limbs and provides more than half the effort. 0-Vvlawustk-wgjpln does ALL the effort. Patient does none of the effort to complete the activity. Or, the assistance of 2 or more helpers is required for the patient to complete the activity. If activity was not attempted, code reason: 7-Patient Refused. 9-Not Applicable-not attempted and the patient did not perform the activity before the current illness, exacerbation or injury. 10-Not Attempted due to Environmental Limitations-(lack of equipment, weather restraints, etc.). 88-Not Attempted due to Medical Conditions or Safety Concerns. Weight Bearing Right Lower Extremity: Right Full Weight Bearing Left Lower Extremity: Left Touch Toe Bearing Exercises Supine Ex: Ankle pumps, Quad Set, Glut sets, Heel Slides (2 x 10 reps with mod A on L), Short Arc Quads, Straight leg raise (2 x 10 with max A on L), Hip abd/add (2 x 10 reps with max A on L) Supine Reps: 20 Treatments LE exercises Assessment Current Status: Good Progress, Fair Progress Pt. continues to have significant difficulty moving L LE requiring max A on L with exercises. Pt. in bed post session with call light and all needs met. PT Short Term Goals Short Term Goals Time Frame: Dec 12, 2019 Roll Left & Right: 3 Sit to lyin Lying to sitting on side of be: 3 Sit to stand: 3 Chair/ezl-pd-sshir transfer: 3 Walk 10 feet: 3 PT Prison Goals Supervisor Shipping Room Goals PT Supervisor Shipping Room Goals Time Frame: Dec 26, 2019 Roll Left & Right (QC): 4 Sit to Lying (QC): 3 (German) Lying-Sitting on Side/Bed(QC): 3 (German) Sit to Stand (QC): 3 (German) Chair/Koo-iz-Gafsm Xfer(QC): 3 (German) Toilet Transfer (QC): 3 Car Transfer (QC): 3 (German) Does the Patient Walk: No and Walking Goal IS indicated Walk 10 feet (QC): 3 (German) Walk 50ft with 2 Turns (QC): 3 (German) Walk 150 ft (QC): 88 Walking 10ft on Uneven Surface: 88 1 Step (curb) (QC): 88 4 Steps (QC): 88 12 Steps (QC): 88 Picking up an Object (QC): 88 Does the Pt use WC or Scooter?: Yes Wheel 50 feet with 2 turns (QC: 6 Type: Manual Wheel 150 feet: 6 Type: Manual PT Plan Treatment/Plan Treatment Plan: Continue Plan of Care Treatment Plan: Bed Mobility, Education, Functional Activity Swetha, Functional Strength, Group Therapy, Gait, Safety, Therapeutic Exercise, Transfers Treatment Duration: Dec 26, 2019 Frequency: At least 5 of 7 days/Wk (IRF) Estimated Hrs Per Day: 1.5 hours per day Patient and/or Family Agrees t: Yes Time/GCodes Time In: 1304 Time Out: 1319 Total Billed Treatment Time: 15 Total Billed Treatment 1, Ex 15' DEJA JADE PT Dec 11, 2019 13:13
[2019-12-11] MEDS: ENOXAPARIN 40 MG/0.4 ML (LOVENOX) SYR SC SCH (16:37)
[2019-12-11 17:50] VITALS: BP 124/72
[2019-12-12] MEDS: oxyCODONE/APAP 10/325MG (PERCOCET 10) TABLET PO SCH ×6 (03:53→23:49)
[2019-12-12] MEDS: inSUlin ASPART (NovoLOG) 1 UNIT/0.01 ML (CHARGE PER UNIT) SC SCH ×4 (05:32→21:24)
[2019-12-12 05:50] VITALS: BP 151/77
[2019-12-12] MEDS: CATHETER FLUSH 10 ML SYR IV SCH ×3 (06:07→22:34)
[2019-12-12] MEDS: GLIMEPIRIDE 1 MG (AMARYL) TAB PO SCH (06:08)
[2019-12-12] MEDS: FLUDROCORTISONE 0.1 MG (FLORINEF) TAB PO SCH (06:08)
[2019-12-12] MEDS: DOCUSATE SODIUM 100 MG (COLACE) CAP PO SCH ×2 (07:58→20:03)
[2019-12-12] MEDS: polyethylene glycoL POWDER 17 GM (MIRALAX) PACK PO SCH ×2 (07:58→20:04)
[2019-12-12] MEDS: SENNA W/DOCUSATE (SENOKOT S) TABLET PO SCH ×2 (07:58→20:03)
--- NOTE | 2019-12-12 10:46 | Physical Therapy Daily Note ---
PT Daily Note-Current Subjective Pt reports (L) hip and thigh pain are limiting his mobility today. Pain Numeric Pain Scale: 5-Moderate Pain Location: Right, Left Location Body Site: Hip Pain Description: Sharp Appearance Pt is alert and oriented on arrival and throughout treatment. Mental Status Patient Orientation: Person, Place, Time, Situation Transfers SCALE: Activities may be completed with or without assistive devices. 4-Mhpfumpvgv-shcltjy completes the activity by him/herself with no assistance from a helper. 5-Set-up or Clean-up Assistance-helper sets up or cleans up; patient completes activity. [place] assists only prior to or following the activity. 4-Supervision or Touching Assistance-helper provides verbal cues and/or touching/steadying and/or contact guard assistance as patient completes activity. Assistance may be provided throughout the activity or intermittently. 3-Partial/Moderate Assistance-helper does LESS THAN HALF the effort. [place] lifts, holds or supports trunk or limbs, but provides less than half the effort. 2-Substantial/Maximal Assistance-helper does MORE THAN HALF the effort. [place] lifts or holds trunk or limbs and provides more than half the effort. 3-Ooqbkyulz-ikzley does ALL the effort. Patient does none of the effort to comp lete the activity. Or, the assistance of 2 or more helpers is required for the patient to complete the activity. If activity was not attempted, code reason: 7-Patient Refused. 9-Not Applicable-not attempted and the patient did not perform the activity before the current illness, exacerbation or injury. 10-Not Attempted due to Environmental Limitations-(lack of equipment, weather restraints, etc.). 88-Not Attempted due to Medical Conditions or Safety Concerns. Roll Left & Right (QC): 3 Sit to Lying (QC): 3 Lying to Sitting/Side of Bed(Q: 3 Sit to Stand (QC): 4 Chair/Pjp-la-Ipcph Xfer(QC): 4 Toilet Transfer (QC): 4 Weight Bearing Right Lower Extremity: Right Full Weight Bearing Left Lower Extremity: Left Touch Toe Bearing Gait Training Does the Patient Walk?: Yes Distance: 60ft, 50ft, 50ft, 50ft, 110ft Walk 10 feet (QC): 4 Walk 50 ft with 2 Turns(QC): 4 Gait Persons Needed: 1 Gait Assistive Device: FWW Exercises Supine Ex: LE Protocol Supine Reps: 20 Seated Therapy Exercises: Long arc quads, Hip flexion Seated Reps: [address] Ex=Flex, Abd, Ext, Marching Standing Reps: 15 Left leg only during standing ex. NuStep Minutes: 10 NuStep Workload: 5 Treatments Worked on better positioning of the (L) LE for sit to stand and with bed mobility. Pt was able to perform his last sit to stand with only contact assist. Assessment Current Status: Good Progress Pt was able to walk a longer distance at the end of the treatment today that he has since he started therapy. PT Short Term Goals Short Term Goals Time Frame: Dec 12, 2019 Roll Left & Right: 3 Sit to lyin Lying to sitting on side of be: 3 Sit to stand: 3 Chair/wbp-hs-ueijt transfer: 3 Walk 10 feet: 3 PT Senior Living Goals Blow Moulding Machine Operator Goals PT Senior Living Goals Time Frame: Dec 26, 2019 Roll Left & Right (QC): 4 Sit to Lying (QC): 3 (German) Lying-Sitting on Side/Bed(QC): 3 (German) Sit to Stand (QC): 3 (German) Chair/Qkh-bh-Tmoel Xfer(QC): 3 (German) Toilet Transfer (QC): 3 Car Transfer (QC): 3 (German) Does the Patient Walk: No and Walking Goal IS indicated Walk 10 feet (QC): 3 (German) Walk 50ft with 2 Turns (QC): 3 (German) Walk 150 ft (QC): 88 Walking 10ft on Uneven Surface: 88 1 Step (curb) (QC): 88 4 Steps (QC): 88 12 Steps (QC): 88 Picking up an Object (QC): 88 Does the Pt use WC or Scooter?: Yes Wheel 50 feet with 2 turns (QC: 6 Type: Manual Wheel 150 feet: 6 Type: Manual PT Plan Treatment/Plan Treatment Plan: Continue Plan of Care Treatment Plan: Bed Mobility, Education, Functional Activity Swetha, Functional Strength, Group Therapy, Gait, Safety, Therapeutic Exercise, Transfers Treatment Duration: Dec 26, 2019 Frequency: At least 5 of 7 days/Wk (IRF) Estimated Hrs Per Day: 1.5 hours per day Patient and/or Family Agrees t: Yes Time/GCodes Time In: 809 Time Out: 934 Total Billed Treatment Time: 85 Total Billed Treatment 1, ex x4 (55), gt x2 (30) CYNTHIA DE LA FUENTE PT Dec 12, 2019 10:46
--- NOTE | 2019-12-12 11:16 | Occupational Ther Daily Note ---
OT Current Status-Daily Note Subjective Pt laying in bed at start of session, agreeable to OT tx with mod encouragement. Pt reports pain in his left hip to his knee. Pain Numeric Pain Scale: 8 Location: Left Location Body Site: Hip Mental Status/Objective Patient Orientation: Normal For Age ADL-Treatment Therapy Code Descriptions/Definitions Functional [place] Measure: 0=Not Assessed/NA 4=Minimal Assistance 1=Total Assistance 5=Supervision or Setup 2=Maximal Assistance 6=Modified [place] 3=Moderate Assistance 7=Complete IndependenceSCALE: Activities may be completed with or without assistive devices. 8-Terxjchrsa-ouywjmj completes the activity by him/herself with no assistance from a helper. 5-Set-up or Clean-up Assistance-helper sets up or cleans up; patient completes activity. [place] assists only prior to or following the activity. 4-Supervision or Touching Assistance-helper provides verbal cues and/or touching/steadying and/or contact guard assistance as patient completes activity. Assistance may be provided throughout the activity or intermittently. 3-Partial/Moderate Assistance-helper does LESS THAN HALF the effort. [place] lifts, holds or supports trunk or limbs, but provides less than half the effort. 2-Substantial/Maximal Assistance-helper does MORE THAN HALF the effort. [place] lifts or holds trunk or limbs and provides more than half the effort. 0-Pdyxfqkdd-vxqifg does ALL the effort. Patient does none of the effort to complete the activity. Or, the assistance of 2 or more helpers is required for the patient to complete the activity. If activity was not attempted, code reason: 7-Patient Refused. 9-Not Applicable-not attempted and the patient did not perform the activity before the current illness, exacerbation or injury. 10-Not Attempted due to Environmental Limitations-(lack of equipment, weather restraints, etc.). 88-Not Attempted due to Medical Conditions or Safety Concerns. Oral Hygiene (QC): 4 (CGA standing at sink.) Upper Body Dressing (QC): 5 Lower Body Dressing (QC): 3 (OT educated pt to dress left hip first. He was able to thread pants/underwear onto legs using collector of aquarium specimens. Min A required for sit to stand from EOB. He was able to manage pants up with CGA during stand at FWW.) On/Off Footwear: 5 (set up, pt donned slipper socks using sock aide with increased time. ) Toileting Hygiene (QC): 7 (pt declined task during tx.) Other Treatment Pt laying in bed, transferred supine to sit EOB with SBA. He then completed dressing using AE. Pt then ambulated to restroom using FWW, he brushed his teeth standing at sink. He returned to his bed where he took a rest break before transferring supine. Pt required assist lifting left leg into bed during sit to supine transfer. Pt required increased time with functional mobility, rest breaks with tasks, and increased time with all ADLs during tx. Post OT session pt laying in bed, call light in reach and all needs met. Education OT Patient Education: Correct positioning, Energy conservation, Modified ADL techniques, Progress toward Goal/Update tx plan, Purpose of tx/functional activities, Safety issues, Transfer techniques, Use of adapted equipment Teaching Recipient: Patient Teaching Methods: Demonstration, Discussion Response to Teaching: Verbalize Understanding, Return Demonstration OT Short Term Goals Short Term Goals Time Frame: Dec 19, 2019 Eatin Oral hygiene: 5 Toileting hygiene: 3 Shower/bathe self: 3 Upper body dressin Lower body dressin Putting on/taking off footwear: 3 OT Paper Coater Goals Longterm Goals Time Frame: Jan 02, 2020 Eating (QC): 6 Oral Hygiene (QC): 6 Toileting Hygiene (QC): 6 Shower/Bathe Self (QC): 6 Upper Body Dressing (QC): 6 Lower Body Dressing (QC): 6 On/Off Footwear (QC): 6 Additional Goals: 1-Demonstrate ADL Tasks, 2-Verbalize Understanding, 3- ImproveStrength/Swetha 1=Demonstrate adherence to instructed precautions during ADL tasks. 2=Patient will verbalize/demonstrate understanding of assistive devices/modifications for ADL. 3=Patient will improve strength/tolerance for activity to enable patient to perform ADL's. OT Education/Plan Problem List/Assessment Assessment: Decreased Activ Tolerance, Decreased UE Strength, Impaired Bed Mobility, Impaired Funct Balance, Impaired I ADL's, Impaired Self-Care Skills Discharge Recommendations Plan/Recommendations: Continue POC Treatment Plan/Plan of Care Patient would benefit from OT for education, treatment and training to promote independence in ADL's, mobility, safety and/or upper extremity function for ADL's. Plan of Care: ADL Retraining, Functional Mobility, Group Exercise/Act as Ind, UE Funct Exercise/Act Treatment Duration: Dec 19, 2019 Frequency: At least 5 of 7 days/Wk (IRF) Estimated Hrs Per Day: 1.5 hours per day Agreement: Yes Rehab Potential: Fair Time/GCodes Start Time: 10:00 Stop Time: 11:00 Total Time Billed (hr/min): 60 Billed Treatment Time 1, ADL 4 DIANA GARCIA OT Dec 12, 2019 11:16
--- NOTE | 2019-12-12 12:07 | PM&R Progress Note ---
Subjective HPI/CC On Admission Date Seen by Provider: Dec 12, 2019 Time Seen by Provider: 10:30 Subjective/Events-last exam Patient doing much better pain ness and BP ness since DC Oxycontin and started Percocet M1iwbgg and started Florinef respectively Florinef maintained at 0600 of 0.1mg daily and tolerated well BM+ 12/10/19 HH at DC 12/17/19 Urinating well Very chronically ill and debilitated Patient requires A LOT OF NARCOTICS acute on chronic Lovenox maintained. Conferred with RN Reviewed therapy notes Checked meds and labs Review of Systems General: Fatigue Gastrointestinal: Constipation Musculoskeletal: back pain, leg pain Objective Exam Vital Signs Vital Signs Date Time Temp Pulse Resp B/P (MAP) Pulse Ox O2 Delivery O2 Flow Rate FiO2 12/13/19 06:15 36.6 74 18 135/72 (93) 95 Room Air Capillary Refill : Less Than 3 SecondsLess Than 3 Seconds General Appearance: No Apparent Distress, Anxious, Chronically ill, Thin HEENT: PERRL/EOMI, Normal ENT Inspection, Pharynx Normal Neck: Full Range of Motion, Normal Inspection, Non Tender, Supple, Carotid Bruit Respiratory: Chest Non Tender, Lungs Clear, Normal Breath Sounds, No Accessory Muscle Use, No Respiratory Distress Cardiovascular: Regular Rate, Rhythm, No Edema, No Gallop, No JVD, No Murmur, Normal Peripheral Pulses Gastrointestinal: Normal Bowel Sounds, No Organomegaly, No Pulsatile Mass, Non Tender, Soft Back: Normal Inspection, No CVA Tenderness, No Vertebral Tenderness Extremity: Normal Capillary Refill, Normal Inspection, Normal Range of Motion (except left leg from post op pain), Non Tender, No Calf Tenderness, No Pedal Edema Neurologic/Psychiatric: Alert, Oriented x3, No Motor/Sensory Deficits, bobbin loose end finder II- XII Norm as Tested, Depressed Affect Skin: Normal Color, Warm/Dry Lymphatic: No Adenopathy Results/Procedures Lab Patient resulted labs reviewed. FIM Transfers Therapy Code Descriptions/Definitions Functional [place] Measure: 0=Not Assessed/NA 4=Minimal Assistance 1=Total Assistance 5=Supervision or Setup 2=Maximal Assistance 6=Modified [place] 3=Moderate Assistance 7=Complete IndependenceSCALE: Activities may be completed with or without assistive devices. 0-Eulyvmatmt-zyuxpet completes the activity by him/herself with no assistance from a helper. 5-Set-up or Clean-up Assistance-helper sets up or cleans up; patient completes activity. [place] assists only prior to or following the activity. 4-Supervision or Touching Assistance-helper provides verbal cues and/or touching/steadying and/or contact guard assistance as patient completes activity. Assistance may be provided throughout the activity or intermittently. 3-Partial/Moderate Assistance-helper does LESS THAN HALF the effort. [place] lifts, holds or supports trunk or limbs, but provides less than half the effort. 2-Substantial/Maximal Assistance-helper does MORE THAN HALF the effort. [place] lifts or holds trunk or limbs and provides more than half the effort. 4-Skihebhiw-bqlvht does ALL the effort. Patient does none of the effort to complete the activity. Or, the assistance of 2 or more helpers is required for the patient to complete the activity. If activity was not attempted, code reason: 7-Patient Refused. 9-Not Applicable-not attempted and the patient did not perform the activity before the current illness, exacerbation or injury. 10-Not Attempted due to Environmental Limitations-(lack of equipment, weather restraints, etc.). 88-Not Attempted due to Medical Conditions or Safety Concerns. Roll Left to Right (QC): 3 Sit to Lying (QC): 3 Sit to Stand (QC): 4 Chair/Lpt-ui-Qzlpv Xfer(QC): 4 Car Transfer (QC): 2 Gait Training Does the Patient Walk?: Yes Distance: 60ft, 50ft, 50ft, 50ft, 110ft Walk 10 feet (QC): 4 Walk 50 ft with 2 Turns(QC): 4 Walk 150 ft (QC): 88 Walking 10ft/uneven surface-QC: 88 Gait Persons Needed: 1 Gait Assistive Device: FWW Wheelchair Training Does the Pt Use a Wheelchair?: Yes Distance: 150'x2 Wheel 50 ft with 2 turns (QC): 4 Wheel 150 ft (QC): 4 Type of Wheelchair: Manual Stair Training 1 Step (curb) (QC): 88 4 Steps (QC): 88 12 Steps (QC): 88 Balance Picking up an Object (QC): 88 ADL-Treatment Eating (QC): 6 (per pt report he is able to open all containers and cut food. ) Oral Hygiene (QC): 4 (CGA standing at sink.) Shower/Bathe Self (QC): 4 (CGA during stand at GBs. Pt able to wash all parts with increased time due to pain) Upper Body Dressing (QC): 5 Lower Body Dressing (QC): 3 (OT educated pt to dress left hip first. He was able to thread pants/underwear onto legs using account executive agribusiness. Min A required for sit to stand from EOB. He was able to manage pants up with CGA during stand at FWW.) On/Off Footwear (QC): 5 (set up, pt donned slipper socks using sock aide with increased time. ) Toileting Hygiene (QC): 7 (pt declined task during tx.) Toilet Transfer (QC): 1 Assessment/Plan Assessment and Plan Assess & Plan/Chief Complaint Assessment: Left femur fracture POD # 10 Post op anemia from acute blood loss Orthostatic hypotension requiring 500cc bolus IVF NS day after admit now holding ACEi and stopped the Oxycontin and started Florinef and SYDNEY and RONA's on resulting in good BP levels DM insulin dependency Chronic pain Narcotic dependent Chronic DJD back pain Thin build Poor reserve Chronic debility Frail status Poor nutrition Iron deficiency severe requiring IV Venofer Plan: Monitor labs Venofer Midline placement and maintained well Monitor diabetes IRF protocol SYDNEY with RONA's if he can tolerate detention placement may be needed if can't go home on HH (1) Closed left femoral fracture (2) Frailty (3) Flat affect (4) Chronic pain (5) Narcotic dependence (6) Diabetes mellitus with insulin therapy (7) Thin build (8) Orthostasis (9) Postoperative anemia due to acute blood loss (10) Iron deficiency NORIS LESTER DO Dec 12, 2019 12:06
--- NOTE | 2019-12-12 13:21 | Occupational Ther Daily Note ---
OT Current Status-Daily Note Subjective Pt laying in bed at start of session, reports he is very tired and still has a lot of pain even though he had a pain medicine about an hour ago. He does not feel like the pain med has helped. Pain Numeric Pain Scale: 10-Worst Possible Pain Location: Left Location Body Site: Hip Mental Status/Objective Patient Orientation: Normal For Age ADL-Treatment Therapy Code Descriptions/Definitions Functional [place] Measure: 0=Not Assessed/NA 4=Minimal Assistance 1=Total Assistance 5=Supervision or Setup 2=Maximal Assistance 6=Modified [place] 3=Moderate Assistance 7=Complete IndependenceSCALE: Activities may be completed with or without assistive devices. 6-Bbuxibxlil-ukhmibm completes the activity by him/herself with no assistance from a helper. 5-Set-up or Clean-up Assistance-helper sets up or cleans up; patient completes activity. [place] assists only prior to or following the activity. 4-Supervision or Touching Assistance-helper provides verbal cues and/or touching/steadying and/or contact guard assistance as patient completes activity. Assistance may be provided throughout the activity or intermittently. 3-Partial/Moderate Assistance-helper does LESS THAN HALF the effort. [place] lif ts, holds or supports trunk or limbs, but provides less than half the effort. 2-Substantial/Maximal Assistance-helper does MORE THAN HALF the effort. [place] lifts or holds trunk or limbs and provides more than half the effort. 0-Lgxzgklps-lheiju does ALL the effort. Patient does none of the effort to complete the activity. Or, the assistance of 2 or more helpers is required for the patient to complete the activity. If activity was not attempted, code reason: 7-Patient Refused. 9-Not Applicable-not attempted and the patient did not perform the activity before the current illness, exacerbation or injury. 10-Not Attempted due to Environmental Limitations-(lack of equipment, weather restraints, etc.). 88-Not Attempted due to Medical Conditions or Safety Concerns. Other Treatment Pt laying in bed, expresses he has hoped he would have progressed further than he has. OT and pt talked about his progress this far compared to when he was admitted. Pt agreed that he feels like he is doing better, but wants to get as close to PLOF as he can. In order to increase BUE strength and endurance, pt completed BUE red theraband exercises, x20 reps each all planes, 2 sets each. Pt required mod A to recall exercises from previous sessions, OT demo'd exercises and pt able to return demo correctly. He required rest breaks throughout task. Post OT session, pt laying in bed, call light in reach and all needs met. Education OT Patient Education: Correct positioning, Energy conservation, Exercise program, Progress toward Goal/Update tx plan, Purpose of tx/functional activities Teaching Recipient: Patient Teaching Methods: Demonstration, Discussion Response to Teaching: Verbalize Understanding, Return Demonstration OT Short Term Goals Short Term Goals Time Frame: Dec 19, 2019 Eatin Oral hygiene: 5 Toileting hygiene: 3 Shower/bathe self: 3 Upper body dressin Lower body dressin Putting on/taking off footwear: 3 OT Prison Goals Filter Bed Placer Goals Time Frame: Jan 02, 2020 Eating (QC): 6 Oral Hygiene (QC): 6 Toileting Hygiene (QC): 6 Shower/Bathe Self (QC): 6 Upper Body Dressing (QC): 6 Lower Body Dressing (QC): 6 On/Off Footwear (QC): 6 Additional Goals: 1-Demonstrate ADL Tasks, 2-Verbalize Understanding, 3- ImproveStrength/Swetha 1=Demonstrate adherence to instructed precautions during ADL tasks. 2=Patient will verbalize/demonstrate understanding of assistive devices/modifi cations for ADL. 3=Patient will improve strength/tolerance for activity to enable patient to perform ADL's. OT Education/Plan Problem List/Assessment Assessment: Decreased Activ Tolerance, Decreased UE Strength, Impaired Bed Mobility, Impaired Funct Balance, Impaired I ADL's, Impaired Self-Care Skills Discharge Recommendations Plan/Recommendations: Continue POC Treatment Plan/Plan of Care Patient would benefit from OT for education, treatment and training to promote independence in ADL's, mobility, safety and/or upper extremity function for ADL's. Plan of Care: ADL Retraining, Functional Mobility, Group Exercise/Act as Ind, UE Funct Exercise/Act Treatment Duration: Dec 19, 2019 Frequency: At least 5 of 7 days/Wk (IRF) Estimated Hrs Per Day: 1.5 hours per day Agreement: Yes Rehab Potential: Fair Time/GCodes Start Time: 13:00 Stop Time: 13:30 Total Time Billed (hr/min): 30 Billed Treatment Time 1, EX 2 DIANA GARCIA OT Dec 12, 2019 13:21
--- NOTE | 2019-12-12 13:37 | NUR ---
RD ASSESSMENT PMHx: HLP; HTN; DM PT INTERACTION: Pt was awake and pleasant during nutrition follow-up. Pt states his appetite has been "off and on" since last assessment, and that he is generally not a heavy eater. Note avg PO intake of 54% x4d, per chart review. Pt states no issues with nausea/vomiting since last assessment. Pt states some issues with constipation since last assessment. Note last BM was 4/5 and pt currently on bowel regimen of Colace BID; Senna BID; and Miralax BID, per chart review. ABNORMAL NUTRITION-RELATED LAB VALUES LOW: Ca 8.3; Pro 5.2; alb 3.0 HIGH: BUN 19; glu 125; alkphos 147 Est. kcal needs: 7867-7923 kcal | 25-30 kcal/kg Est. Pro needs: 67-83 g Pro | 0.8-1.0 g Pro/kg PES STATEMENT: Inadequate oral intake (NI-2.1) related to loss of appetite | constipation as evidenced by pt interview | avg PO intake 54% x4d INTERVENTION: Continue with current diet order of CHO 75g/m 3snack diet. Pt may benefit from more aggressive CHO restriction if blood glucose levels become elevated. Add Glucerna to meals TID, for increased kcal intake. Provides 220 kcal and 10 g Pro per serving. Will continue to follow and reassess as pt needs, intake, and status change. MONITOR/EVALUATE: PO Intake; Plan of Care; Hydration Status; Weight Status; Lab Values Osei Cagle, MS, RD, LD
[2019-12-12] MEDS: BISACODYL 10 MG SUPP (DULCOLAX) PR PRN (14:30)
--- NOTE | 2019-12-12 14:34 | Physical Therapy Daily Note ---
PT Daily Note-Current Subjective Pt is in bed, but agreeable to treatment. Pain Numeric Pain Scale: 7 Location: Left Location Body Site: Hip Pain Description: Sharp Mental Status Patient Orientation: Person, Place, Time, Situation Transfers SCALE: Activities may be completed with or without assistive devices. 8-Tjqnortved-jlgzpeg completes the activity by him/herself with no assistance from a helper. 5-Set-up or Clean-up Assistance-helper sets up or cleans up; patient completes activity. [place] assists only prior to or following the activity. 4-Supervision or Touching Assistance-helper provides verbal cues and/or touching/steadying and/or contact guard assistance as patient completes activity. Assistance may be provided throughout the activity or intermittently. 3-Partial/Moderate Assistance-helper does LESS THAN HALF the effort. [place] lifts, holds or supports trunk or limbs, but provides less than half the effort. 2-Substantial/Maximal Assistance-helper does MORE THAN HALF the effort. [place] lifts or holds trunk or limbs and provides more than half the effort. 1-Feijfaakt-burdyw does ALL the effort. Patient does none of the effort to complete the activity. Or, the assistance of 2 or more helpers is required for the patient to complete the activity. If activity was not attempted, code reason: 7-Patient Refused. 9-Not Applicable-not attempted and the patient did not perform the activity before the current illness, exacerbation or injury. 10-Not Attempted due to Environmental Limitations-(lack of equipment, weather restraints, etc.). 88-Not Attempted due to Medical Conditions or Safety Concerns. Roll Left & Right (QC): 4 Sit to Lying (QC): 4 Lying to Sitting/Side of Bed(Q: 4 Sit to Stand (QC): 4 Chair/Xtr-qd-Oxcfe Xfer(QC): 4 Weight Bearing Right Lower Extremity: Right Full Weight Bearing Left Lower Extremity: Left Touch Toe Bearing Gait Training Does the Patient Walk?: Yes Distance: 60ft, 80ft, 60ft Walk 10 feet (QC): 4 Walk 50 ft with 2 Turns(QC): 4 Gait Persons Needed: 1 Gait Assistive Device: FWW Assessment Worked on improving upright posture during gait. Pt continues to be limited by (L) hip pain during all activity. PT Short Term Goals Short Term Goals Time Frame: Dec 12, 2019 Roll Left & Right: 3 Sit to lyin Lying to sitting on side of be: 3 Sit to stand: 3 Chair/glm-rk-rmeqm transfer: 3 Walk 10 feet: 3 PT Prison Goals Assurance Sourcing Manager Goals PT Prison Goals Time Frame: Dec 26, 2019 Roll Left & Right (QC): 4 Sit to Lying (QC): 3 (German) Lying-Sitting on Side/Bed(QC): 3 (German) Sit to Stand (QC): 3 (German) Chair/Xmt-yy-Ypoyt Xfer(QC): 3 (German) Toilet Transfer (QC): 3 Car Transfer (QC): 3 (German) Does the Patient Walk: No and Walking Goal IS indicated Walk 10 feet (QC): 3 (German) Walk 50ft with 2 Turns (QC): 3 (German) Walk 150 ft (QC): 88 Walking 10ft on Uneven Surface: 88 1 Step (curb) (QC): 88 4 Steps (QC): 88 12 Steps (QC): 88 Picking up an Object (QC): 88 Does the Pt use WC or Scooter?: Yes Wheel 50 feet with 2 turns (QC: 6 Type: Manual Wheel 150 feet: 6 Type: Manual PT Plan Treatment/Plan Treatment Plan: Continue Plan of Care Treatment Plan: Bed Mobility, Education, Functional Activity Swetha, Functional Strength, Group Therapy, Gait, Safety, Therapeutic Exercise, Transfers Treatment Duration: Dec 26, 2019 Frequency: At least 5 of 7 days/Wk (IRF) Estimated Hrs Per Day: 1.5 hours per day Patient and/or Family Agrees t: Yes Time/GCodes Time In: 1340 Time Out: 1355 Total Billed Treatment Time: 15 Total Billed Treatment 1, gt (15) CYNTHIA DE LA FUENTE PT Dec 12, 2019 14:34
[2019-12-12] MEDS: ENOXAPARIN 40 MG/0.4 ML (LOVENOX) SYR SC SCH (16:27)
[2019-12-12 17:09] VITALS: BP 152/78
--- NOTE | 2019-12-12 17:30 | NUR ---
CM/SS WEEKLY TEAM CONFERENCE SUMMARY Reviewed Summary with patient and he is in agreement to targeted discharge to home for 12/17/19. Patient appears greatly improved overall and converses well, pleasantly. Barriers to discharge have decreased at patient has improved. The goal for return home appeared out of sight earlier in the week; however, patient responded well to Rx adjustment and subsequent improved therapy sessions. Industrial Sales Manager had pursued SNF placement with three facilities, [facility] notified journalists and other writers today they would consider him. He is insured [employer] requiring a very timely authorization, and since patient appears on the pathway to return home, the referral was suspended. If patient status changes and SNF is again warranted, [facility] or [facility] should be contacted to resume the process for updated review and authorization. Patient is very pleased about a discharge to look forward to. Post hospital plan: DME: [facility], [facility] or [facility]: [facility] Explore agencies to meet patient needs in service area.
[2019-12-12] MEDS: ZOLPIDEM 5 MG (AMBIEN) TAB PO PRN (23:51)
[2019-12-13] MEDS: oxyCODONE/APAP 10/325MG (PERCOCET 10) TABLET PO SCH ×5 (04:14→20:56)
[2019-12-13] MEDS: inSUlin ASPART (NovoLOG) 1 UNIT/0.01 ML (CHARGE PER UNIT) SC SCH ×4 (05:48→20:58)
[2019-12-13] MEDS: GLIMEPIRIDE 1 MG (AMARYL) TAB PO SCH (05:51)
[2019-12-13] MEDS: CATHETER FLUSH 10 ML SYR IV SCH ×2 (05:51→14:53)
[2019-12-13] MEDS: FLUDROCORTISONE 0.1 MG (FLORINEF) TAB PO SCH (05:52)
[2019-12-13 06:15] VITALS: BP 135/72
[2019-12-13] MEDS: polyethylene glycoL POWDER 17 GM (MIRALAX) PACK PO SCH ×2 (08:19→21:12)
[2019-12-13] MEDS: SENNA W/DOCUSATE (SENOKOT S) TABLET PO SCH ×2 (08:19→20:55)
[2019-12-13] MEDS: DOCUSATE SODIUM 100 MG (COLACE) CAP PO SCH ×2 (08:19→20:56)
[2019-12-13] MEDS: IRON SUCROSE 200 MG/10 ML (VENOFER) VIAL IV SCH (08:56)
--- NOTE | 2019-12-13 09:00 | Physical Therapy Daily Note ---
PT Daily Note-Current Subjective Patient in bed pre tx, agrees to PT, has 8/10 pain in left hip, nurse notified and he got pain meds. Appearance Patient in bed post tx with nurse call, phone, tray, all needs met. Mental Status Patient Orientation: Person, Place, Situation Transfers SCALE: Activities may be completed with or without assistive devices. 1-Brifxrykjo-tkufokx completes the activity by him/herself with no assistance from a helper. 5-Set-up or Clean-up Assistance-helper sets up or cleans up; patient completes activity. [place] assists only prior to or following the activity. 4-Supervision or Touching Assistance-helper provides verbal cues and/or touching/steadying and/or contact guard assistance as patient completes activity. Assistance may be provided throughout the activity or intermittently. 3-Partial/Moderate Assistance-helper does LESS THAN HALF the effort. [place] lifts, holds or supports trunk or limbs, but provides less than half the effort. 2-Substantial/Maximal Assistance-helper does MORE THAN HALF the effort. [place] lifts or holds trunk or limbs and provides more than half the effort. 4-Oaxywuxgx-joeryy does ALL the effort. Patient does none of the effort to complete the activity. Or, the assistance of 2 or more helpers is required for the patient to complete the activity. If activity was not attempted, code reason: 7-Patient Refused. 9-Not Applicable-not attempted and the patient did not perform the activity before the current illness, exacerbation or injury. 10-Not Attempted due to Environmental Limitations-(lack of equipment, weather restraints, etc.). 88-Not Attempted due to Medical Conditions or Safety Concerns. Roll Left & Right (QC): 4 Sit to Lying (QC): 3 Lying to Sitting/Side of Bed(Q: 3 Sit to Stand (QC): 4 Chair/Spk-rm-Gyvns Xfer(QC): 4 Min assist supine <-> sit, SBA for sit to stand and transfers Weight Bearing Right Lower Extremity: Right Full Weight Bearing Left Lower Extremity: Left Touch Toe Bearing Gait Training Distance: 150'x2 Walk 10 feet (QC): 4 Walk 50 ft with 2 Turns(QC): 4 Walk 150 ft (QC): 4 Gait Assistive Device: FWW slow, antalgic, very little hip flexion on the left side, compliant with weight bearing status Exercises Standing: Hamstring curls, 3 way Ex=Flex, Abd, Ext (not ext), Marching Standing Reps: 15 (only left leg) NuStep Minutes: 15 NuStep Workload: 1 (no resistance) Treatments bed mobility and transfers, ambulation, LE ROM Assessment Current Status: Fair Progress improving endurance but poor pain tolerance PT Short Term Goals Short Term Goals Time Frame: Dec 12, 2019 Roll Left & Right: 3 Sit to lyin Lying to sitting on side of be: 3 Sit to stand: 3 Chair/onx-ne-oljvg transfer: 3 Walk 10 feet: 3 PT Marketing Production Manager Goals [facility] Goals PT [facility] Goals Time Frame: Dec 26, 2019 Roll Left & Right (QC): 4 Sit to Lying (QC): 3 (German) Lying-Sitting on Side/Bed(QC): 3 (German) Sit to Stand (QC): 3 (German) Chair/Uso-qe-Wyimf Xfer(QC): 3 (German) Toilet Transfer (QC): 3 Car Transfer (QC): 3 (German) Does the Patient Walk: No and Walking Goal IS indicated Walk 10 feet (QC): 3 (German) Walk 50ft with 2 Turns (QC): 3 (German) Walk 150 ft (QC): 88 Walking 10ft on Uneven Surface: 88 1 Step (curb) (QC): 88 4 Steps (QC): 88 12 Steps (QC): 88 Picking up an Object (QC): 88 Does the Pt use WC or Scooter?: Yes Wheel 50 feet with 2 turns (QC: 6 Type: Manual Wheel 150 feet: 6 Type: Manual PT Plan Problem List Problem List: Activity Tolerance, Functional Strength, Safety, Balance, Gait, Transfer, Bed Mobility, ROM Treatment/Plan Treatment Plan: Continue Plan of Care Treatment Plan: Bed Mobility, Education, Functional Activity Swetha, Functional Strength, Group Therapy, Gait, Safety, Therapeutic Exercise, Transfers Treatment Duration: Dec 26, 2019 Frequency: At least 5 of 7 days/Wk (IRF) Estimated Hrs Per Day: 1.5 hours per day Patient and/or Family Agrees t: Yes Safety Risks/Education Patient Education: Gait Training, Transfer Techniques, Correct Positioning, Safety Issues Teaching Recipient: Patient Teaching Methods: Demonstration, Discussion Response to Teaching: Reinforcement Needed Time/GCodes Time In: 0800 Time Out: 0900 Total Billed Treatment Time: 60 Total Billed Treatment 1 visit GT 25' EX 20' FA 15' MARYANNE PHILLIPS PT Dec 13, 2019 09:00
--- NOTE | 2019-12-13 10:40 | PM&R Progress Note ---
Subjective HPI/CC On Admission Date Seen by Provider: Dec 13, 2019 Time Seen by Provider: 10:45 Subjective/Events-last exam Patient doing much better pain ness and BP ness. Florinef maintained at 0600 of 0.1mg daily and tolerating well and no fluid retention noted BM+ 12/11/19 so suppository will be offered HH at DC 12/17/19 and that is being set up and although this is a SW issue and nurse already addressed it he continues to ask me about details about HH and the walker order so needs repeated reassurance from multiple sources apparently Urinating well Very chronically ill and debilitated Patient requires A LOT OF NARCOTICS. Incision looks good Venofer nearing end of treatment cycle Conferred with RN Reviewed therapy notes Checked meds and labs Review of Systems General: Fatigue Musculoskeletal: back pain, leg pain Objective Exam Vital Signs Vital Signs Date Time Temp Pulse Resp B/P (MAP) Pulse Ox O2 Delivery O2 Flow Rate FiO2 12/13/19 06:15 36.6 74 18 135/72 (93) 95 Room Air Capillary Refill : Less Than 3 SecondsLess Than 3 Seconds General Appearance: No Apparent Distress, Anxious, Chronically ill, Thin HEENT: PERRL/EOMI, Normal ENT Inspection, Pharynx Normal Neck: Full Range of Motion, Normal Inspection, Non Tender, Supple, Carotid Bruit Respiratory: Chest Non Tender, Lungs Clear, Normal Breath Sounds, No Accessory Muscle Use, No Respiratory Distress Cardiovascular: Regular Rate, Rhythm, No Edema, No Gallop, No JVD, No Murmur, Normal Peripheral Pulses Gastrointestinal: Normal Bowel Sounds, No Organomegaly, No Pulsatile Mass, Non Tender, Soft Back: Normal Inspection, No CVA Tenderness, No Vertebral Tenderness Extremity: Normal Capillary Refill, Normal Inspection, Normal Range of Motion (except left leg from post op pain), Non Tender, No Calf Tenderness, No Pedal Edema Neurologic/Psychiatric: Alert, Oriented x3, No Motor/Sensory Deficits, ore bridge operator II- XII Norm as Tested, Depressed Affect Skin: Normal Color, Warm/Dry Lymphatic: No Adenopathy Results/Procedures Lab Patient resulted labs reviewed. FIM Transfers Therapy Code Descriptions/Definitions Functional [place] Measure: 0=Not Assessed/NA 4=Minimal Assistance 1=Total Assistance 5=Supervision or Setup 2=Maximal Assistance 6=Modified [place] 3=Moderate Assistance 7=Complete IndependenceSCALE: Activities may be completed with or without assistive devices. 9-Mycnatablp-sdkzsgx completes the activity by him/herself with no assistance from a helper. 5-Set-up or Clean-up Assistance-helper sets up or cleans up; patient completes activity. [place] assists only prior to or following the activity. 4-Supervision or Touching Assistance-helper provides verbal cues and/or touching/steadying and/or contact guard assistance as patient completes activity. Assistance may be provided throughout the activity or intermittently. 3-Partial/Moderate Assistance-helper does LESS THAN HALF the effort. [place] lifts, holds or supports trunk or limbs, but provides less than half the effort. 2-Substantial/Maximal Assistance-helper does MORE THAN HALF the effort. [place] lifts or holds trunk or limbs and provides more than half the effort. 4-Vjfxzsuqk-tneguv does ALL the effort. Patient does none of the effort to complete the activity. Or, the assistance of 2 or more helpers is required for the patient to complete the activity. If activity was not attempted, code reason: 7-Patient Refused. 9-Not Applicable-not attempted and the patient did not perform the activity before the current illness, exacerbation or injury. 10-Not Attempted due to Environmental Limitations-(lack of equipment, weather restraints, etc.). 88-Not Attempted due to Medical Conditions or Safety Concerns. Roll Left to Right (QC): 4 Sit to Lying (QC): 3 Sit to Stand (QC): 4 Chair/Azj-ae-Wflue Xfer(QC): 4 Car Transfer (QC): 2 Gait Training Does the Patient Walk?: Yes Distance: 150'x2 Walk 10 feet (QC): 4 Walk 50 ft with 2 Turns(QC): 4 Walk 150 ft (QC): 4 Walking 10ft/uneven surface-QC: 88 Gait Persons Needed: 1 Gait Assistive Device: FWW Wheelchair Training Does the Pt Use a Wheelchair?: Yes Distance: 150'x2 Wheel 50 ft with 2 turns (QC): 4 Wheel 150 ft (QC): 4 Type of Wheelchair: Manual Stair Training 1 Step (curb) (QC): 88 4 Steps (QC): 88 12 Steps (QC): 88 Balance Picking up an Object (QC): 88 ADL-Treatment Eating (QC): 6 (per pt report he is able to open all containers and cut food. ) Oral Hygiene (QC): 4 (CGA standing at sink.) Shower/Bathe Self (QC): 4 (CGA during stand at GBs. Pt able to wash all parts with increased time due to pain) Upper Body Dressing (QC): 5 Lower Body Dressing (QC): 3 (OT educated pt to dress left hip first. He was able to thread pants/underwear onto legs using business process analyst. Min A required for sit to stand from EOB. He was able to manage pants up with CGA during stand at FWW.) On/Off Footwear (QC): 5 (set up, pt donned slipper socks using sock aide with increased time. ) Toileting Hygiene (QC): 7 (pt declined task during tx.) Toilet Transfer (QC): 1 Assessment/Plan Assessment and Plan Assess & Plan/Chief Complaint Assessment: Left femur fracture POD # 11 Post op anemia from acute blood loss Orthostatic hypotension requiring 500cc bolus IVF NS day after admit now holding ACEi and stopped the Oxycontin and started Florinef and SYDNEY and RONA's on resulting in resolving the hypotension DM insulin dependency Chronic pain Narcotic dependent Chronic DJD back pain Thin build Poor reserve Chronic debility Frail status Poor nutrition Iron deficiency severe requiring IV Venofer will complete while in IRF Plan: Monitor labs Venofer Midline placement Monitor diabetes IRF protocol SYDNEY with RONA's if he can tolerate long-term placement if he fails at home (1) Closed left femoral fracture (2) Frailty (3) Flat affect (4) Chronic pain (5) Narcotic dependence (6) Diabetes mellitus with insulin therapy (7) Thin build (8) Orthostasis (9) Postoperative anemia due to acute blood loss (10) Iron deficiency NORIS LESTER DO Dec 13, 2019 10:40
--- NOTE | 2019-12-13 11:21 | Occupational Ther Daily Note ---
OT Current Status-Daily Note Subjective Pt laying in bed at start of session, agreeable to OT tx with focus on ADLS. Pain Numeric Pain Scale: 8 Location: Left Location Body Site: Hip Mental Status/Objective Patient Orientation: Normal For Age ADL-Treatment Therapy Code Descriptions/Definitions Functional [place] Measure: 0=Not Assessed/NA 4=Minimal Assistance 1=Total Assistance 5=Supervision or Setup 2=Maximal Assistance 6=Modified [place] 3=Moderate Assistance 7=Complete IndependenceSCALE: Activities may be completed with or without assistive devices. 3-Vdhvumkehu-sdvxura completes the activity by him/herself with no assistance from a helper. 5-Set-up or Clean-up Assistance-helper sets up or cleans up; patient completes activity. [place] assists only prior to or following the activity. 4-Supervision or Touching Assistance-helper provides verbal cues and/or touching/steadying and/or contact guard assistance as patient completes activity. Assistance may be provided throughout the activity or intermittently. 3-Partial/Moderate Assistance-helper does LESS THAN HALF the effort. [place] lifts, holds or supports trunk or limbs, but provides less than half the effort. 2-Substantial/Maximal Assistance-helper does MORE THAN HALF the effort. [place] lifts or holds trunk or limbs and provides more than half the effort. 4-Itzocpylv-fyozsk does ALL the effort. Patient does none of the effort to complete the activity. Or, the assistance of 2 or more helpers is required for the patient to complete the activity. If activity was not attempted, code reason: 7-Patient Refused. 9-Not Applicable-not attempted and the patient did not perform the activity before the current illness, exacerbation or injury. 10-Not Attempted due to Environmental Limitations-(lack of equipment, weather restraints, etc.). 88-Not Attempted due to Medical Conditions or Safety Concerns. Oral Hygiene (QC): 4 (SBA standing at sink.) Shower/Bathe Self (QC): 5 (set up/clean up. Pt able to wash all parts, cleaned his buttocks with side leans. ) Upper Body Dressing (QC): 5 (set up ) Lower Body Dressing (QC): 4 (Pt required 1 cue in order to don pants/underwear on LLE first. He was then able to complete all parts of LE dressing with impregnation operator, with SBA standing at FWW. ) On/Off Footwear: 3 (Pt able to doff socks, required total assist with TedHose. He was able to don socks using sock aide without assistance. ) Toileting Hygiene (QC): 4 (CGA during stand. Pt able to manage pants and hygiene.) Toilet Transfer (QC): 3 (Pt able to sit with CGA, Min A to stand from toilet. ) Pt required increased time with all ADLs due to pain with movement. Other Treatment Pt laying in bed, transferred supine to sit EOB with SBA. He then ambulated to restroom where he completed toileting, dressing, oral hygiene and showering. He returned to his bed, requiring assistance with LLE from sit to supine. Post OT session, pt laying in bed, call light in reach and all needs met. Education OT Patient Education: Correct positioning, Energy conservation, Modified ADL techniques, Progress toward Goal/Update tx plan, Purpose of tx/functional activities, Transfer techniques, Use of adapted equipment Teaching Recipient: Patient Teaching Methods: Discussion Response to Teaching: Verbalize Understanding OT Short Term Goals Short Term Goals Time Frame: Dec 19, 2019 Eatin Oral hygiene: 5 Toileting hygiene: 3 Shower/bathe self: 3 Upper body dressin Lower body dressin Putting on/taking off footwear: 3 OT Penitentiary Goals Quality Assurance Assessor Goals Time Frame: Jan 02, 2020 Eating (QC): 6 Oral Hygiene (QC): 6 Toileting Hygiene (QC): 6 Shower/Bathe Self (QC): 6 Upper Body Dressing (QC): 6 Lower Body Dressing (QC): 6 On/Off Footwear (QC): 6 Additional Goals: 1-Demonstrate ADL Tasks, 2-Verbalize Understanding, 3- ImproveStrength/Swetha 1=Demonstrate adherence to instructed precautions during ADL tasks. 2=Patient will verbalize/demonstrate understanding of assistive devices/modifications for ADL. 3=Patient will improve strength/tolerance for activity to enable patient to perform ADL's. OT Education/Plan Problem List/Assessment Assessment: Decreased Activ Tolerance, Decreased UE Strength, Impaired I ADL's, Impaired Self-Care Skills Discharge Recommendations Plan/Recommendations: Continue POC Treatment Plan/Plan of Care Patient would benefit from OT for education, treatment and training to promote independence in ADL's, mobility, safety and/or upper extremity function for ADL's. Plan of Care: ADL Retraining, Functional Mobility, Group Exercise/Act as Ind, UE Funct Exercise/Act Treatment Duration: Dec 19, 2019 Frequency: At least 5 of 7 days/Wk (IRF) Estimated Hrs Per Day: 1.5 hours per day Agreement: Yes Rehab Potential: Fair Time/GCodes Start Time: 10:00 Stop Time: 11:30 Total Time Billed (hr/min): 90 Billed Treatment Time 1, ADL 6 DIANA GARCIA OT Dec 13, 2019 11:21
--- NOTE | 2019-12-13 13:55 | Physical Therapy Daily Note ---
PT Daily Note-Current Subjective Patient in bed pre tx, agrees to PT, has 8/10 pain in left hip. Appearance Patient in bed post tx with nurse call, phone, tray, all needs met. Mental Status Patient Orientation: Normal For Age Transfers SCALE: Activities may be completed with or without assistive devices. 6-Zllalsyxxf-prxsbaz completes the activity by him/herself with no assistance from a helper. 5-Set-up or Clean-up Assistance-helper sets up or cleans up; patient completes activity. [place] assists only prior to or following the activity. 4-Supervision or Touching Assistance-helper provides verbal cues and/or touching/steadying and/or contact guard assistance as patient completes activity. Assistance may be provided throughout the activity or intermittently. 3-Partial/Moderate Assistance-helper does LESS THAN HALF the effort. [place] lifts, holds or supports trunk or limbs, but provides less than half the effort. 2-Substantial/Maximal Assistance-helper does MORE THAN HALF the effort. [place] lifts or holds trunk or limbs and provides more than half the effort. 9-Zeudladgd-mdvote does ALL the effort. Patient does none of the effort to complete the activity. Or, the assistance of 2 or more helpers is required for the patient to complete the activity. If activity was not attempted, code reason: 7-Patient Refused. 9-Not Applicable-not attempted and the patient did not perform the activity before the current illness, exacerbation or injury. 10-Not Attempted due to Environmental Limitations-(lack of equipment, weather restraints, etc.). 88-Not Attempted due to Medical Conditions or Safety Concerns. Roll Left & Right (QC): 4 Sit to Lying (QC): 3 Lying to Sitting/Side of Bed(Q: 3 Sit to Stand (QC): 4 Chair/Jqe-du-Jidir Xfer(QC): 4 Weight Bearing Right Lower Extremity: Right Full Weight Bearing Left Lower Extremity: Left Touch Toe Bearing Gait Training Distance: 150'x2 Walk 10 feet (QC): 4 Walk 50 ft with 2 Turns(QC): 4 Walk 150 ft (QC): 4 Gait Assistive Device: FWW SBA, very slow, antalgic, able to maintain TTWB on the left leg. Treatments bed mobility and transfers, ambulation Assessment Current Status: Fair Progress slowly improving general mobility PT Short Term Goals Short Term Goals Time Frame: Dec 12, 2019 Roll Left & Right: 3 Sit to lyin Lying to sitting on side of be: 3 Sit to stand: 3 Chair/hwk-cy-yxvmz transfer: 3 Walk 10 feet: 3 PT Long-Term Goals Long-Term Goals PT Oracle Programmer Analyst Goals Time Frame: Dec 26, 2019 Roll Left & Right (QC): 4 Sit to Lying (QC): 3 (German) Lying-Sitting on Side/Bed(QC): 3 (German) Sit to Stand (QC): 3 (German) Chair/Kfk-of-Mddhe Xfer(QC): 3 (German) Toilet Transfer (QC): 3 Car Transfer (QC): 3 (German) Does the Patient Walk: No and Walking Goal IS indicated Walk 10 feet (QC): 3 (German) Walk 50ft with 2 Turns (QC): 3 (German) Walk 150 ft (QC): 88 Walking 10ft on Uneven Surface: 88 1 Step (curb) (QC): 88 4 Steps (QC): 88 12 Steps (QC): 88 Picking up an Object (QC): 88 Does the Pt use WC or Scooter?: Yes Wheel 50 feet with 2 turns (QC: 6 Type: Manual Wheel 150 feet: 6 Type: Manual PT Plan Problem List Problem List: Activity Tolerance, Functional Strength, Safety, Balance, Gait, Transfer, Bed Mobility, ROM Treatment/Plan Treatment Plan: Continue Plan of Care Treatment Plan: Bed Mobility, Education, Functional Activity Swetha, Functional Strength, Group Therapy, Gait, Safety, Therapeutic Exercise, Transfers Treatment Duration: Dec 26, 2019 Frequency: At least 5 of 7 days/Wk (IRF) Estimated Hrs Per Day: 1.5 hours per day Patient and/or Family Agrees t: Yes Safety Risks/Education Patient Education: Gait Training, Transfer Techniques, Correct Positioning, Safety Issues Teaching Recipient: Patient Teaching Methods: Demonstration, Discussion Response to Teaching: Reinforcement Needed Time/GCodes Time In: 1330 Time Out: 1400 Total Billed Treatment Time: 30 Total Billed Treatment 1 visit FA 10' GT 20' MARYANNE PHILLIPS PT Dec 13, 2019 13:55
--- NOTE | 2019-12-13 14:33 | NUR ---
CM/SS CONCURRENT DOCUMENTATION Visited with spouse Sherie Rebolledo by phone regarding post hospital care planning. HHC: Discussed Medicare Compare and agencies in their service area, she indicated [facility] (FX: [phone] and PH: [phone]) as a start point. Confirmed with them they take [employer] insurance, initial referral sent in anticipation of Monday12/17/19 discharge. Await response/acceptance. DME: Sherie directed technical publications writer to [facility] for assistive devices, will need orders from physician to pursue. Going to submit for FWW, Hip Kit, Tub Transfer Bench to see if insurance would actually cover. Sherie indicates inability to pay for the items until end of month when next check arrives. Patient and spouse both excited about his return home. Followup next week.
[2019-12-13 16:00] VITALS: BP 122/74
[2019-12-13] MEDS: ENOXAPARIN 40 MG/0.4 ML (LOVENOX) SYR SC SCH (16:44)
[2019-12-14] MEDS: CATHETER FLUSH 10 ML SYR IV SCH ×3 (00:01→14:10)
[2019-12-14] MEDS: oxyCODONE/APAP 10/325MG (PERCOCET 10) TABLET PO SCH ×6 (00:01→20:19)
[2019-12-14 05:41] VITALS: BP 143/75
[2019-12-14] MEDS: GLIMEPIRIDE 1 MG (AMARYL) TAB PO SCH (06:04)
[2019-12-14] MEDS: inSUlin ASPART (NovoLOG) 1 UNIT/0.01 ML (CHARGE PER UNIT) SC SCH ×4 (06:04→20:19)
[2019-12-14] MEDS: FLUDROCORTISONE 0.1 MG (FLORINEF) TAB PO SCH (06:04)
[2019-12-14] MEDS: DOCUSATE SODIUM 100 MG (COLACE) CAP PO SCH ×2 (08:14→20:19)
[2019-12-14] MEDS: polyethylene glycoL POWDER 17 GM (MIRALAX) PACK PO SCH ×2 (08:14→21:38)
[2019-12-14] MEDS: SENNA W/DOCUSATE (SENOKOT S) TABLET PO SCH ×2 (08:15→20:19)
--- NOTE | 2019-12-14 09:16 | Physical Therapy Daily Note ---
PT Daily Note-Current Subjective Patient is very agreeable to participate with therapy. Pain Numeric Pain Scale: 3 Location: Left Location Body Site: Hip Pain Description: Acute Mental Status Patient Orientation: Normal For Age Transfers SCALE: Activities may be completed with or without assistive devices. 6-Bmlqdzrsso-bqgpgkx completes the activity by him/herself with no assistance from a helper. 5-Set-up or Clean-up Assistance-helper sets up or cleans up; patient completes activity. [place] assists only prior to or following the activity. 4-Supervision or Touching Assistance-helper provides verbal cues and/or touching/steadying and/or contact guard assistance as patient completes activity. Assistance may be provided throughout the activity or intermittently. 3-Partial/Moderate Assistance-helper does LESS THAN HALF the effort. [place] lifts, holds or supports trunk or limbs, but provides less than half the effort. 2-Substantial/Maximal Assistance-helper does MORE THAN HALF the effort. [place] lifts or holds trunk or limbs and provides more than half the effort. 7-Ixgdczhjk-hdezjt does ALL the effort. Patient does none of the effort to complete the activity. Or, the assistance of 2 or more helpers is required for the patient to complete the activity. If activity was not attempted, code reason: 7-Patient Refused. 9-Not Applicable-not attempted and the patient did not perform the activity before the current illness, exacerbation or injury. 10-Not Attempted due to Environmental Limitations-(lack of equipment, weather restraints, etc.). 88-Not Attempted due to Medical Conditions or Safety Concerns. Sit to Stand (QC): 5 Weight Bearing Right Lower Extremity: Right Full Weight Bearing Left Lower Extremity: Left Touch Toe Bearing Gait Training Does the Patient Walk?: Yes Distance: 250' x 2 Walk 10 feet (QC): 5 Walk 50 ft with 2 Turns(QC): 5 Walk 150 ft (QC): 5 Gait Assistive Device: FWW TTWB left LE compliance Exercises Seated Therapy Exercises: Ankle pumps, Long arc quads Seated Reps: 15 NuStep Minutes: 20 NuStep Workload: 5 Assessment Patient progressing with treatment plan. PT instructed patient and nursing staff to be up ad hira during day in room and hallway if he feels comfortable. He has also been instructed to call for assistance if needed. Plan dismissal to home with spouse next week. PT Short Term Goals Short Term Goals Time Frame: Dec 12, 2019 Roll Left & Right: 3 Sit to lyin Lying to sitting on side of be: 3 Sit to stand: 3 Chair/yms-jw-hkmzj transfer: 3 Walk 10 feet: 3 PT Production Support Engineer Goals Production Support Engineer Goals PT Production Support Engineer Goals Time Frame: Dec 26, 2019 Roll Left & Right (QC): 4 Sit to Lying (QC): 3 (German) Lying-Sitting on Side/Bed(QC): 3 (German) Sit to Stand (QC): 3 (German) Chair/Kfd-ns-Hcavn Xfer(QC): 3 (German) Toilet Transfer (QC): 3 Car Transfer (QC): 3 (German) Does the Patient Walk: No and Walking Goal IS indicated Walk 10 feet (QC): 3 (German) Walk 50ft with 2 Turns (QC): 3 (German) Walk 150 ft (QC): 88 Walking 10ft on Uneven Surface: 88 1 Step (curb) (QC): 88 4 Steps (QC): 88 12 Steps (QC): 88 Picking up an Object (QC): 88 Does the Pt use WC or Scooter?: Yes Wheel 50 feet with 2 turns (QC: 6 Type: Manual Wheel 150 feet: 6 Type: Manual PT Plan Treatment/Plan Treatment Plan: Continue Plan of Care Treatment Plan: Bed Mobility, Education, Functional Activity Swetha, Functional Strength, Group Therapy, Gait, Safety, Therapeutic Exercise, Transfers Treatment Duration: Dec 26, 2019 Frequency: At least 5 of 7 days/Wk (IRF) Estimated Hrs Per Day: 1.5 hours per day Patient and/or Family Agrees t: Yes Time/GCodes Time In: 835 Time Out: 910 Total Billed Treatment Time: 35 Total Billed Treatment 1 visit EX x 2 25 min GT 10 min NATE ALVES PT Dec 14, 2019 09:16
--- NOTE | 2019-12-14 14:44 | PM&R Progress Note ---
Subjective HPI/CC On Admission Date Seen by Provider: Dec 14, 2019 Time Seen by Provider: 12:20 Subjective/Events-last exam Patient doing much better pain ness and BP ness but he always states he does not feel well, very difficult to maintain positive outlook Up d hira in his room during the day now per PT BM x 2 today Urinating well Very chronically ill and debilitated Patient requires A LOT OF NARCOTICS. Incision looks good Venofer nearing end of treatment cycle Conferred with RN Reviewed therapy notes Checked meds and labs Review of Systems Musculoskeletal: back pain, leg pain Objective Exam Vital Signs Vital Signs Date Time Temp Pulse Resp B/P (MAP) Pulse Ox O2 Delivery O2 Flow Rate FiO2 12/14/19 16:09 37.2 86 16 106/60 (75) 99 Room Air Capillary Refill : Less Than 3 SecondsLess Than 3 Seconds General Appearance: No Apparent Distress, Anxious, Chronically ill, Thin HEENT: PERRL/EOMI, Normal ENT Inspection, Pharynx Normal Neck: Full Range of Motion, Normal Inspection, Non Tender, Supple, Carotid Bruit Respiratory: Chest Non Tender, Lungs Clear, Normal Breath Sounds, No Accessory Muscle Use, No Respiratory Distress Cardiovascular: Regular Rate, Rhythm, No Edema, No Gallop, No JVD, No Murmur, Normal Peripheral Pulses Gastrointestinal: Normal Bowel Sounds, No Organomegaly, No Pulsatile Mass, Non Tender, Soft Back: Normal Inspection, No CVA Tenderness, No Vertebral Tenderness Extremity: Normal Capillary Refill, Normal Inspection, Normal Range of Motion, Non Tender, No Calf Tenderness, No Pedal Edema Neurologic/Psychiatric: Alert, Oriented x3, No Motor/Sensory Deficits, senior programmer II- XII Norm as Tested, Depressed Affect Skin: Normal Color, Warm/Dry Lymphatic: No Adenopathy Results/Procedures Lab Patient resulted labs reviewed. FIM Transfers Therapy Code Descriptions/Definitions Functional [place] Measure: 0=Not Assessed/NA 4=Minimal Assistance 1=Total Assistance 5=Supervision or Setup 2=Maximal Assistance 6=Modified [place] 3=Moderate Assistance 7=Complete IndependenceSCALE: Activities may be completed with or without assistive devices. 4-Bqlgmqetyd-wbzvlhl completes the activity by him/herself with no assistance from a helper. 5-Set-up or Clean-up Assistance-helper sets up or cleans up; patient completes activity. [place] assists only prior to or following the activity. 4-Supervision or Touching Assistance-helper provides verbal cues and/or touching/steadying and/or contact guard assistance as patient completes activity. Assistance may be provided throughout the activity or intermittently. 3-Partial/Moderate Assistance-helper does LESS THAN HALF the effort. [place] lifts, holds or supports trunk or limbs, but provides less than half the effort. 2-Substantial/Maximal Assistance-helper does MORE THAN HALF the effort. [place] lifts or holds trunk or limbs and provides more than half the effort. 8-Pkdqpipuw-ukaxdp does ALL the effort. Patient does none of the effort to complete the activity. Or, the assistance of 2 or more helpers is required for the patient to complete the activity. If activity was not attempted, code reason: 7-Patient Refused. 9-Not Applicable-not attempted and the patient did not perform the activity before the current illness, exacerbation or injury. 10-Not Attempted due to Environmental Limitations-(lack of equipment, weather restraints, etc.). 88-Not Attempted due to Medical Conditions or Safety Concerns. Roll Left to Right (QC): 4 Sit to Lying (QC): 3 Sit to Stand (QC): 5 Chair/Vzf-at-Zohdf Xfer(QC): 4 Car Transfer (QC): 2 Gait Training Does the Patient Walk?: Yes Distance: 250' x 2 Walk 10 feet (QC): 5 Walk 50 ft with 2 Turns(QC): 5 Walk 150 ft (QC): 5 Walking 10ft/uneven surface-QC: 88 Gait Persons Needed: 1 Gait Assistive Device: FWW Wheelchair Training Does the Pt Use a Wheelchair?: Yes Distance: 150'x2 Wheel 50 ft with 2 turns (QC): 4 Wheel 150 ft (QC): 4 Type of Wheelchair: Manual Stair Training 1 Step (curb) (QC): 88 4 Steps (QC): 88 12 Steps (QC): 88 Balance Picking up an Object (QC): 88 ADL-Treatment Eating (QC): 6 (per pt report he is able to open all containers and cut food. ) Oral Hygiene (QC): 4 (SBA standing at sink.) Shower/Bathe Self (QC): 5 (set up/clean up. Pt able to wash all parts, cleaned his buttocks with side leans. ) Upper Body Dressing (QC): 5 (set up ) Lower Body Dressing (QC): 4 (Pt required 1 cue in order to don pants/underwear on LLE first. He was then able to complete all parts of LE dressing with pulverizer feeder, with SBA standing at FWW. ) On/Off Footwear (QC): 3 (Pt able to doff socks, required total assist with TedHose. He was able to don socks using sock aide without assistance. ) Toileting Hygiene (QC): 4 (CGA during stand. Pt able to manage pants and hygiene.) Toilet Transfer (QC): 3 (Pt able to sit with CGA, Min A to stand from toilet. ) Assessment/Plan Assessment and Plan Assess & Plan/Chief Complaint Assessment: Left femur fracture POD # 12 Post op anemia from acute blood loss Orthostatic hypotension requiring 500cc bolus IVF NS day after admit now holding ACEi and stopped the Oxycontin and started Florinef and YSDNEY and RONA's on resulting in resolving the hypotension DM insulin dependency Chronic pain Narcotic dependent Chronic DJD back pain Thin build Poor reserve Chronic debility Frail status Poor nutrition Iron deficiency severe requiring IV Venofer will complete while in IRF Plan: Monitor labs Venofer Midline placement Monitor diabetes IRF protocol SYDNEY with RONA's if he can tolerate snf placement if he fails at home DC Monday (1) Closed left femoral fracture (2) Frailty (3) Flat affect (4) Chronic pain (5) Narcotic dependence (6) Diabetes mellitus with insulin therapy (7) Thin build (8) Orthostasis (9) Postoperative anemia due to acute blood loss (10) Iron deficiency NORIS LESTER DO Dec 14, 2019 14:44
[2019-12-14 16:09] VITALS: BP 106/60
[2019-12-14] MEDS: ENOXAPARIN 40 MG/0.4 ML (LOVENOX) SYR SC SCH (16:46)
[2019-12-15] MEDS: ZOLPIDEM 5 MG (AMBIEN) TAB PO PRN (00:10)
[2019-12-15] MEDS: oxyCODONE/APAP 10/325MG (PERCOCET 10) TABLET PO SCH ×6 (00:10→20:34)
[2019-12-15] MEDS: CATHETER FLUSH 10 ML SYR IV SCH ×4 (00:11→20:35)
[2019-12-15 05:07] VITALS: BP 133/75
[2019-12-15] MEDS: inSUlin ASPART (NovoLOG) 1 UNIT/0.01 ML (CHARGE PER UNIT) SC SCH ×4 (05:14→20:34)
[2019-12-15] MEDS: GLIMEPIRIDE 1 MG (AMARYL) TAB PO SCH (06:29)
[2019-12-15] MEDS: FLUDROCORTISONE 0.1 MG (FLORINEF) TAB PO SCH (06:29)
--- NOTE | 2019-12-15 08:00 | NUR ---
COMPLAIN TIRED. STATES DIDN'T SLEEP WELL. AMBULATING WELL, BUT STILL HAS TROUBLE GETTING LEFT LEG BACK INTO BED. IS EATING BETTER NOW. LEFT THIGH IS SWOLLEN AND TEDS PUT ON.
[2019-12-15] MEDS: DOCUSATE SODIUM 100 MG (COLACE) CAP PO SCH ×2 (08:20→20:39)
[2019-12-15] MEDS: polyethylene glycoL POWDER 17 GM (MIRALAX) PACK PO SCH ×2 (08:20→20:39)
[2019-12-15] MEDS: SENNA W/DOCUSATE (SENOKOT S) TABLET PO SCH ×2 (08:20→20:39)
--- NOTE | 2019-12-15 10:00 | NUR ---
TOOK IT UPON HIMSELF TO DO ADL'S AND AMBULATED IN [place] WITH WALKER.
--- NOTE | 2019-12-15 12:58 | PM&R Progress Note ---
Subjective HPI/CC On Admission Date Seen by Provider: Dec 15, 2019 Time Seen by Provider: 13:00 Subjective/Events-last exam Patient doing much better but he always states he does not feel well, very difficult to maintain positive outlook Up ad hira in his room during the day now per PT and he had no concerns about that BM x 2 today again Urinating well Very chronically ill and debilitated Patient requires A LOT OF NARCOTICS. Incision looks good Venofer nearing end of treatment cycle Conferred with RN Reviewed therapy notes Checked meds and labs Review of Systems General: Fatigue Musculoskeletal: leg pain Objective Exam Vital Signs Vital Signs Date Time Temp Pulse Resp B/P (MAP) Pulse Ox O2 Delivery O2 Flow Rate FiO2 12/15/19 17:13 36.2 87 18 130/67 (88) 95 Room Air Capillary Refill : Less Than 3 SecondsLess Than 3 Seconds General Appearance: No Apparent Distress, Anxious, Chronically ill, Thin HEENT: PERRL/EOMI, Normal ENT Inspection, Pharynx Normal Neck: Full Range of Motion, Normal Inspection, Non Tender, Supple, Carotid Bruit Respiratory: Chest Non Tender, Lungs Clear, Normal Breath Sounds, No Accessory Muscle Use, No Respiratory Distress Cardiovascular: Regular Rate, Rhythm, No Edema, No Gallop, No JVD, No Murmur, Normal Peripheral Pulses Gastrointestinal: Normal Bowel Sounds, No Organomegaly, No Pulsatile Mass, Non Tender, Soft Back: Normal Inspection, No CVA Tenderness, No Vertebral Tenderness Extremity: Normal Capillary Refill, Normal Inspection, Normal Range of Motion, Non Tender, No Calf Tenderness, No Pedal Edema Neurologic/Psychiatric: Alert, Oriented x3, No Motor/Sensory Deficits, shirt folder II- XII Norm as Tested, Depressed Affect Skin: Normal Color, Warm/Dry Lymphatic: No Adenopathy Results/Procedures Lab Patient resulted labs reviewed. FIM Transfers Therapy Code Descriptions/Definitions Functional [place] Measure: 0=Not Assessed/NA 4=Minimal Assistance 1=Total Assistance 5=Supervision or Setup 2=Maximal Assistance 6=Modified [place] 3=Moderate Assistance 7=Complete IndependenceSCALE: Activities may be completed with or without assistive devices. 3-Ilxvpiakpi-lbiefyt completes the activity by him/herself with no assistance from a helper. 5-Set-up or Clean-up Assistance-helper sets up or cleans up; patient completes activity. [place] assists only prior to or following the activity. 4-Supervision or Touching Assistance-helper provides verbal cues and/or touching/steadying and/or contact guard assistance as patient completes activity. Assistance may be provided throughout the activity or intermittently. 3-Partial/Moderate Assistance-helper does LESS THAN HALF the effort. [place] lifts, holds or supports trunk or limbs, but provides less than half the effort. 2-Substantial/Maximal Assistance-helper does MORE THAN HALF the effort. [place] lifts or holds trunk or limbs and provides more than half the effort. 8-Pyykmosxx-xeulxl does ALL the effort. Patient does none of the effort to complete the activity. Or, the assistance of 2 or more helpers is required for the patient to complete the activity. If activity was not attempted, code reason: 7-Patient Refused. 9-Not Applicable-not attempted and the patient did not perform the activity before the current illness, exacerbation or injury. 10-Not Attempted due to Environmental Limitations-(lack of equipment, weather restraints, etc.). 88-Not Attempted due to Medical Conditions or Safety Concerns. Roll Left to Right (QC): 4 Sit to Lying (QC): 3 Sit to Stand (QC): 5 Chair/Grf-xc-Qpdbz Xfer(QC): 4 Car Transfer (QC): 2 Gait Training Does the Patient Walk?: Yes Distance: 250' x 2 Walk 10 feet (QC): 5 Walk 50 ft with 2 Turns(QC): 5 Walk 150 ft (QC): 5 Walking 10ft/uneven surface-QC: 88 Gait Persons Needed: 1 Gait Assistive Device: FWW Wheelchair Training Does the Pt Use a Wheelchair?: Yes Distance: 150'x2 Wheel 50 ft with 2 turns (QC): 4 Wheel 150 ft (QC): 4 Type of Wheelchair: Manual Stair Training 1 Step (curb) (QC): 88 4 Steps (QC): 88 12 Steps (QC): 88 Balance Picking up an Object (QC): 88 ADL-Treatment Eating (QC): 6 (per pt report he is able to open all containers and cut food. ) Oral Hygiene (QC): 4 (SBA standing at sink.) Shower/Bathe Self (QC): 5 (set up/clean up. Pt able to wash all parts, cleaned his buttocks with side leans. ) Upper Body Dressing (QC): 5 (set up ) Lower Body Dressing (QC): 4 (Pt required 1 cue in order to don pants/underwear on LLE first. He was then able to complete all parts of LE dressing with acupressure therapist, with SBA standing at FWW. ) On/Off Footwear (QC): 3 (Pt able to doff socks, required total assist with TedHose. He was able to don socks using sock aide without assistance. ) Toileting Hygiene (QC): 4 (CGA during stand. Pt able to manage pants and hygiene.) Toilet Transfer (QC): 3 (Pt able to sit with CGA, Min A to stand from toilet. ) Assessment/Plan Assessment and Plan Assess & Plan/Chief Complaint Assessment: Left femur fracture POD # 13 Post op anemia from acute blood loss Orthostatic hypotension requiring 500cc bolus IVF NS day after admit now holding ACEi and stopped the Oxycontin and started Florinef and SYDNEY and RONA's on resulting in resolving the hypotension DM insulin dependency Chronic pain Narcotic dependent Chronic DJD back pain Thin build Poor reserve Chronic debility Frail status Poor nutrition Iron deficiency severe requiring IV Venofer will complete while in IRF Plan: Monitor labs Venofer Midline placement Monitor diabetes IRF protocol SYDNEY with RONA's if he can tolerate alf placement if he fails at home DC Monday (1) Closed left femoral fracture (2) Frailty (3) Flat affect (4) Chronic pain (5) Narcotic dependence (6) Diabetes mellitus with insulin therapy (7) Thin build (8) Orthostasis (9) Postoperative anemia due to acute blood loss (10) Iron deficiency NORIS LESTER DO Dec 15, 2019 12:58
[2019-12-15] MEDS: ENOXAPARIN 40 MG/0.4 ML (LOVENOX) SYR SC SCH (16:25)
[2019-12-15 17:13] VITALS: BP 130/67
[2019-12-16] MEDS: ZOLPIDEM 5 MG (AMBIEN) TAB PO PRN (00:20)
[2019-12-16] MEDS: oxyCODONE/APAP 10/325MG (PERCOCET 10) TABLET PO SCH ×6 (00:20→20:36)
[2019-12-16 05:24] VITALS: BP 132/68
[2019-12-16] MEDS: GLIMEPIRIDE 1 MG (AMARYL) TAB PO SCH (06:35)
[2019-12-16] MEDS: FLUDROCORTISONE 0.1 MG (FLORINEF) TAB PO SCH (06:35)
[2019-12-16] MEDS: CATHETER FLUSH 10 ML SYR IV SCH ×3 (06:43→20:35)
[2019-12-16] MEDS: inSUlin ASPART (NovoLOG) 1 UNIT/0.01 ML (CHARGE PER UNIT) SC SCH ×4 (06:43→20:23)
[2019-12-16 07:20] LABS: BASOPHILS % (AUTO) 1 % (0-10); EOSINOPHILS # (AUTO) 0.4 10^3/uL (0.0-0.3); EOSINOPHILS % (AUTO) 6 % (0-10); HEMATOCRIT 30 % (40-54); HEMOGLOBIN 9.4 G/DL (13.3-17.7); LYMPHOCYTES # (AUTO) 1.2 X 10^3 (1.0-4.0); LYMPHOCYTES % (AUTO) 19 % (12-44); MEAN CORPUSCULAR HEMOGLOBIN 32 PG (25-34); MEAN CORPUSCULAR HGB CONC 32 G/DL (32-36); MEAN CORPUSCULAR VOLUME 100 FL (80-99); MEAN PLATELET VOLUME 7.9 FL (7.4-10.4); MONOCYTES # (AUTO) 0.7 X 10^3 (0.0-1.0); MONOCYTES % (AUTO) 11 % (0-12); NEUTROPHILS # (AUTO) 4.1 X 10^3 (1.8-7.8); NEUTROPHILS % (AUTO) 63 % (42-75); PLATELET COUNT 617 10^3/uL (130-400); RED CELL DISTRIBUTION WIDTH 14.3 % (10.0-14.5); WHITE BLOOD COUNT 6.5 10^3/uL (4.3-11.0)
[2019-12-16 07:32] LABS: ALBUMIN 3.2 GM/DL (3.2-4.5); CHLORIDE 104 MMOL/L (98-107); POTASSIUM 4.2 MMOL/L (3.6-5.0); SODIUM 138 MMOL/L (135-145)
[2019-12-16 07:33] LABS: CALCIUM 8.6 MG/DL (8.5-10.1)
[2019-12-16 07:34] LABS: GLUCOSE 90 MG/DL (70-105)
[2019-12-16 07:35] LABS: CARBON DIOXIDE 26 MMOL/L (21-32)
[2019-12-16 07:36] LABS: BILIRUBIN,TOTAL 0.6 MG/DL (0.1-1.0)
[2019-12-16 07:38] LABS: ALKALINE PHOSPHATASE 170 U/L (40-136); CREATININE SERUM 0.74 MG/DL (0.60-1.30); GFR ESTIMATED > 60
[2019-12-16 07:39] LABS: BUN/CREATININE RATIO 22
[2019-12-16 07:41] LABS: ALANINE AMINOTRANSFERASE 15 U/L (0-55)
[2019-12-16] MEDS: DOCUSATE SODIUM 100 MG (COLACE) CAP PO SCH ×2 (08:04→20:38)
[2019-12-16] MEDS: SENNA W/DOCUSATE (SENOKOT S) TABLET PO SCH ×2 (08:04→20:38)
[2019-12-16] MEDS: polyethylene glycoL POWDER 17 GM (MIRALAX) PACK PO SCH ×2 (08:07→20:38)
--- NOTE | 2019-12-16 09:23 | Physical Therapy Daily Note ---
PT Daily Note-Current Subjective Pt. rates L hip pain 05/14, states he took something for pain this AM. Mental Status Patient Orientation: Person, Place, Time, Situation Transfers SCALE: Activities may be completed with or without assistive devices. 6-Adzapmywxx-oqtiloz completes the activity by him/herself with no assistance from a helper. 5-Set-up or Clean-up Assistance-helper sets up or cleans up; patient completes activity. [place] assists only prior to or following the activity. 4-Supervision or Touching Assistance-helper provides verbal cues and/or touching/steadying and/or contact guard assistance as patient completes activity. Assistance may be provided throughout the activity or intermittently. 3-Partial/Moderate Assistance-helper does LESS THAN HALF the effort. [place] lifts, holds or supports trunk or limbs, but provides less than half the effort. 2-Substantial/Maximal Assistance-helper does MORE THAN HALF the effort. [place] lifts or holds trunk or limbs and provides more than half the effort. 8-Oigrzqtfe-prxatf does ALL the effort. Patient does none of the effort to complete the activity. Or, the assistance of 2 or more helpers is required for the patient to complete the activity. If activity was not attempted, code reason: 7-Patient Refused. 9-Not Applicable-not attempted and the patient did not perform the activity before the current illness, exacerbation or injury. 10-Not Attempted due to Environmental Limitations-(lack of equipment, weather restraints, etc.). 88-Not Attempted due to Medical Conditions or Safety Concerns. Roll Left & Right (QC): 6 Sit to Lying (QC): 4 Lying to Sitting/Side of Bed(Q: 6 Sit to Stand (QC): 6 Chair/Pfk-lu-Lksbj Xfer(QC): 6 Toilet Transfer (QC): 6 Car Transfer (QC): 5 Weight Bearing Right Lower Extremity: Right Full Weight Bearing Left Lower Extremity: Left Touch Toe Bearing Gait Training Does the Patient Walk?: Yes Distance: 2 x 150 ft Walk 10 feet (QC): 6 Walk 50 ft with 2 Turns(QC): 6 Walk 150 ft (QC): 6 Walking 10ft/uneven surface-QC: 6 Gait Assistive Device: FWW maintains TTWB on L Wheelchair Training Does the Pt Use a Wheelchair?: No Wheel 50 ft with 2 turns (QC): 9 Wheel 150 ft (QC): 9 Stair Training Stair Training: Handrails/: uses walker #of Steps: 1 1 Step (curb) (QC): 4 4 Steps (QC): 88 12 Steps (QC): 88 Stairs: Pattern: Hops Able to maintain TTWB with 1 curb step using FWW Balance Picking up an Object (QC): [address] Ex=Flex, Abd, Ext Standing Reps: 15 NuStep Minutes: 15 NuStep Workload: 4 Treatments gait, LE exercises Assessment Current Status: Good Progress Pt. continues to need min A with L LE to get into bed, otherwise is (I) with transfers and ambulation. He does have difficulty moving L LE for Nustep and car transfer and able to complete with use of UE's. Pt. in bedside chair post session with call light and all needs met. PT Short Term Goals Short Term Goals Time Frame: Dec 12, 2019 Roll Left & Right: 3 Sit to lyin Lying to sitting on side of be: 3 Sit to stand: 3 Chair/lsz-pj-xiwmc transfer: 3 Walk 10 feet: 3 PT Detention Goals Detention Goals PT Cost Control Specialist Goals Time Frame: Dec 26, 2019 Roll Left & Right (QC): 4 Sit to Lying (QC): 3 (German) Lying-Sitting on Side/Bed(QC): 3 (German) Sit to Stand (QC): 3 (German) Chair/Cju-dk-Tplgy Xfer(QC): 3 (German) Toilet Transfer (QC): 3 Car Transfer (QC): 3 (German) Does the Patient Walk: No and Walking Goal IS indicated Walk 10 feet (QC): 3 (German) Walk 50ft with 2 Turns (QC): 3 (German) Walk 150 ft (QC): 88 Walking 10ft on Uneven Surface: 88 1 Step (curb) (QC): 88 4 Steps (QC): 88 12 Steps (QC): 88 Picking up an Object (QC): 88 Does the Pt use WC or Scooter?: Yes Wheel 50 feet with 2 turns (QC: 6 Type: Manual Wheel 150 feet: 6 Type: Manual PT Plan Treatment/Plan Treatment Plan: Continue Plan of Care Treatment Plan: Bed Mobility, Education, Functional Activity Sw[place], Functional Strength, Group Therapy, Gait, Safety, Therapeutic Exercise, Transfers Treatment Duration: Dec 26, 2019 Frequency: At least 5 of 7 days/Wk (IRF) Estimated Hrs Per Day: 1.5 hours per day Patient and/or Family Agrees t: Yes Time/GCodes Time In: 822 Time Out: 922 Total Billed Treatment Time: 60 Total Billed Treatment 1, Ex 25', GT 15', FA 20' DEJA JADE PT Dec 16, 2019 09:23
--- NOTE | 2019-12-16 10:34 | PM&R Progress Note ---
Subjective HPI/CC On Admission Date Seen by Provider: Dec 16, 2019 Time Seen by Provider: 10:45 Subjective/Events-last exam Patient doing much better but he always states he does not feel well, very difficult to maintain positive outlook Up ad hira in his room during the day now per PT and he had no concerns about that and ready for DC BM regular and I sent in bowel meds to pharmacy Urinating well Very chronically ill and debilitated Patient requires A LOT OF NARCOTICS. I sent those in electronically today to his preferred pharmacy Incision looks good Venofer completed today Conferred with RN Reviewed therapy notes Checked meds and labs Review of Systems General: Fatigue Objective Exam Vital Signs Vital Signs Date Time Temp Pulse Resp B/P (MAP) Pulse Ox O2 Delivery O2 Flow Rate FiO2 12/16/19 05:24 36.8 81 18 132/68 (89) 98 Room Air Capillary Refill : Less Than 3 SecondsLess Than 3 Seconds General Appearance: No Apparent Distress, Anxious, Chronically ill, Thin HEENT: PERRL/EOMI, Normal ENT Inspection, Pharynx Normal Neck: Full Range of Motion, Normal Inspection, Non Tender, Supple, Carotid Bruit Respiratory: Chest Non Tender, Lungs Clear, Normal Breath Sounds, No Accessory Muscle Use, No Respiratory Distress Cardiovascular: Regular Rate, Rhythm, No Edema, No Gallop, No JVD, No Murmur, Normal Peripheral Pulses Gastrointestinal: Normal Bowel Sounds, No Organomegaly, No Pulsatile Mass, Non Tender, Soft Back: Normal Inspection, No CVA Tenderness, No Vertebral Tenderness Extremity: Normal Capillary Refill, Normal Inspection, Normal Range of Motion, Non Tender, No Calf Tenderness, No Pedal Edema Neurologic/Psychiatric: Alert, Oriented x3, No Motor/Sensory Deficits, candle molder II- XII Norm as Tested, Depressed Affect Skin: Normal Color, Warm/Dry Lymphatic: No Adenopathy Results/Procedures Lab Laboratory Tests 12/16/19 06:00 Patient resulted labs reviewed. FIM Transfers Therapy Code Descriptions/Definitions Functional [place] Measure: 0=Not Assessed/NA 4=Minimal Assistance 1=Total Assistance 5=Supervision or Setup 2=Maximal Assistance 6=Modified [place] 3=Moderate Assistance 7=Complete IndependenceSCALE: Activities may be completed with or without assistive devices. 2-Firzktbfmn-dvnogvq completes the activity by him/herself with no assistance from a helper. 5-Set-up or Clean-up Assistance-helper sets up or cleans up; patient completes activity. [place] assists only prior to or following the activity. 4-Supervision or Touching Assistance-helper provides verbal cues and/or touching/steadying and/or contact guard assistance as patient completes activity. Assistance may be provided throughout the activity or intermittently. 3-Partial/Moderate Assistance-helper does LESS THAN HALF the effort. [place] lifts, holds or supports trunk or limbs, but provides less than half the effort. 2-Substantial/Maximal Assistance-helper does MORE THAN HALF the effort. [place] lifts or holds trunk or limbs and provides more than half the effort. 9-Eehsbnwad-ggeaiv does ALL the effort. Patient does none of the effort to complete the activity. Or, the assistance of 2 or more helpers is required for the patient to complete the activity. If activity was not attempted, code reason: 7-Patient Refused. 9-Not Applicable-not attempted and the patient did not perform the activity before the current illness, exacerbation or injury. 10-Not Attempted due to Environmental Limitations-(lack of equipment, weather restraints, etc.). 88-Not Attempted due to Medical Conditions or Safety Concerns. Roll Left to Right (QC): 6 Sit to Lying (QC): 4 Sit to Stand (QC): 6 Chair/Cpe-vh-Kojil Xfer(QC): 6 Car Transfer (QC): 5 Gait Training Does the Patient Walk?: Yes Distance: 2 x 150 ft Walk 10 feet (QC): 6 Walk 50 ft with 2 Turns(QC): 6 Walk 150 ft (QC): 6 Walking 10ft/uneven surface-QC: 6 Gait Persons Needed: 1 Gait Assistive Device: FWW Wheelchair Training Does the Pt Use a Wheelchair?: No Distance: 150'x2 Wheel 50 ft with 2 turns (QC): 9 Wheel 150 ft (QC): 9 Type of Wheelchair: Manual Stair Training Stair Training: Handrails/: uses walker #of Steps: 1 1 Step (curb) (QC): 4 4 Steps (QC): 88 12 Steps (QC): 88 Stairs: Pattern: Hops Balance Picking up an Object (QC): 88 ADL-Treatment Eating (QC): 6 (per pt report he is able to open all containers and cut food. ) Oral Hygiene (QC): 4 (SBA standing at sink.) Shower/Bathe Self (QC): 5 (set up/clean up. Pt able to wash all parts, cleaned his buttocks with side leans. ) Upper Body Dressing (QC): 5 (set up ) Lower Body Dressing (QC): 4 (Pt required 1 cue in order to don pants/underwear on LLE first. He was then able to complete all parts of LE dressing with casting chipper, with SBA standing at FWW. ) On/Off Footwear (QC): 3 (Pt able to doff socks, required total assist with TedHose. He was able to don socks using sock aide without assistance. ) Toileting Hygiene (QC): 4 (CGA during stand. Pt able to manage pants and hygiene.) Toilet Transfer (QC): 3 (Pt able to sit with CGA, Min A to stand from toilet. ) Assessment/Plan Assessment and Plan Assess & Plan/Chief Complaint Assessment: Left femur fracture POD # 14 Post op anemia from acute blood loss Orthostatic hypotension requiring 500cc bolus IVF NS day after admit now holding ACEi and stopped the Oxycontin and started Florinef and SYDNEY and RONA's on resulting in resolving the hypotension DM insulin dependency Chronic pain Narcotic dependent Chronic DJD back pain Thin build Poor reserve Chronic debility Frail status Poor nutrition Iron deficiency severe requiring IV Venofer will complete while in IRF Plan: Monitor labs Venofer Midline placement Monitor diabetes IRF protocol SYDNEY with RONA's if he can tolerate [facility] placement if he fails at home DC Monday all orders placed (1) Closed left femoral fracture Qualifiers: Qualified Codes: S72.92XA - Unspecified fracture of left femur, initial encounter for closed fracture (2) Frailty (3) Flat affect (4) Chronic pain (5) Narcotic dependence (6) Diabetes mellitus with insulin therapy (7) Thin build (8) Orthostasis (9) Postoperative anemia due to acute blood loss (10) Iron deficiency NORIS LESTER DO Dec 16, 2019 10:34
--- NOTE | 2019-12-16 11:15 | Occupational Ther Daily Note ---
OT Current Status-Daily Note Subjective Pt sitting in recliner at start of session, agreeable to OT tx. Rated pain 9/10 in left hip. Mental Status/Objective Patient Orientation: Normal For Age ADL-Treatment Therapy Code Descriptions/Definitions Functional [place] Measure: 0=Not Assessed/NA 4=Minimal Assistance 1=Total Assistance 5=Supervision or Setup 2=Maximal Assistance 6=Modified [place] 3=Moderate Assistance 7=Complete IndependenceSCALE: Activities may be completed with or without assistive devices. 6-Koacegwmqm-xyhjvth completes the activity by him/herself with no assistance from a helper. 5-Set-up or Clean-up Assistance-helper sets up or cleans up; patient completes activity. [place] assists only prior to or following the activity. 4-Supervision or Touching Assistance-helper provides verbal cues and/or touching/steadying and/or contact guard assistance as patient completes activity. Assistance may be provided throughout the activity or intermittently. 3-Partial/Moderate Assistance-helper does LESS THAN HALF the effort. Huslia lifts, holds or supports trunk or limbs, but provides less than half the effort. 2-Substantial/Maximal Assistance-helper does MORE THAN HALF the effort. [place] lifts or holds trunk or limbs and provides more than half the effort. 7-Cvbzbbdtr-znkznc does ALL the effort. Patient does none of the effort to complete the activity. Or, the assistance of 2 or more helpers is required for the patient to complete the activity. If activity was not attempted, code reason: 7-Patient Refused. 9-Not Applicable-not attempted and the patient did not perform the activity before the current illness, exacerbation or injury. 10-Not Attempted due to Environmental Limitations-(lack of equipment, weather restraints, etc.). 88-Not Attempted due to Medical Conditions or Safety Concerns. Eating (QC): 6 (per pt report, he has no difficulty with task. ) Oral Hygiene (QC): 6 (IND standing at sink. ) Bathing Location: L Arm, R Arm, L Upper Leg, R Upper Leg, L Lower Leg (including foot), R Lower Leg (including foot), Chest, Abdomen, Buttocks, Perineal Area Shower/Bathe Self (QC): 5 (set up/clean up. Pt able to wash all parts. ) Upper Body Dressing (QC): 6 (IND) Lower Body Dressing (QC): 6 (mod I, increased time. ) On/Off Footwear: 3 (Pt able to doff/don socks with sockaide. assist to don b ilateral tedHose) Toileting Hygiene (QC): 6 (IND ) Toilet Transfer (QC): 6 (IND) Pt required increased time with all ADLs due to pain. Other Treatment Pt seated in recliner, ambulated to bathroom with FWW to complete ADL tx. Pt stood at sink for oral hygiene, then completed showering/dressing and toileting. Pt returned to his recliner. Post OT session, pt seated in recliner, call light in reach and all needs met. Education OT Patient Education: Correct positioning, Energy conservation, Modified ADL techniques, Progress toward Goal/Update tx plan, Purpose of tx/functional activities Teaching Recipient: Patient Teaching Methods: Discussion Response to Teaching: Verbalize Understanding OT Short Term Goals Short Term Goals Time Frame: Dec 19, 2019 Eatin Oral hygiene: 5 Toileting hygiene: 3 Shower/bathe self: 3 Upper body dressin Lower body dressin Putting on/taking off footwear: 3 OT Prison Goals Prison Goals Time Frame: Jan 02, 2020 Eating (QC): 6 (met) Oral Hygiene (QC): 6 (met) Toileting Hygiene (QC): 6 (met) Shower/Bathe Self (QC): 6 (not met, set up ) Upper Body Dressing (QC): 6 (met) Lower Body Dressing (QC): 6 (met) On/Off Footwear (QC): 6 (not met, min A with tedhose) Additional Goals: 1-Demonstrate ADL Tasks, 2-Verbalize Understanding, 3- ImproveStrength/Swetha 1=Demonstrate adherence to instructed precautions during ADL tasks. 2=Patient will verbalize/demonstrate understanding of assistive devices/modifications for ADL. 3=Patient will improve strength/tolerance for activity to enable patient to perform ADL's. OT Education/Plan Problem List/Assessment Assessment: Decreased Activ Tolerance, Decreased UE Strength, Impaired I ADL's, Impaired Self-Care Skills Discharge Recommendations Plan/Recommendations: Continue POC Treatment Plan/Plan of Care Patient would benefit from OT for education, treatment and training to promote independence in ADL's, mobility, safety and/or upper extremity function for ADL's. Plan of Care: ADL Retraining, Functional Mobility, Group Exercise/Act as Ind, UE Funct Exercise/Act Treatment Duration: Dec 19, 2019 Frequency: At least 5 of 7 days/Wk (IRF) Estimated Hrs Per Day: 1.5 hours per day Agreement: Yes Rehab Potential: Fair Time/GCodes Start Time: 10:00 Stop Time: 11:30 Total Time Billed (hr/min): 90 Billed Treatment Time 1, ADL 6 DIANA GARCIA OT Dec 16, 2019 11:15
[2019-12-16] MEDS ORDERED: OXYC1TAB12 PO (11:18)
[2019-12-16] MEDS ORDERED: SENN-20 PO (11:18)
[2019-12-16] MEDS ORDERED: DCS100C PO (11:18)
[2019-12-16] MEDS ORDERED: HUM100IN4 SQ (11:18)
[2019-12-16] MEDS ORDERED: ENOX40DI8 SC (11:18)
[2019-12-16] MEDS ORDERED: FLDR.1T PO (11:18)
--- NOTE | 2019-12-16 11:21 | D/C HH Face to Face Order ---
D/C Face to Face Orders Reconcile Patient Problems Problems Reviewed?: Yes Instructions for Patient [facility] Patient Instructions/FollowUp: Dr Lantigua 1 week Physician to follow Patient: Dr Yassine Lantigua Discharge Diet for Home: ADA Diet Patient Problems: Left feumr fracture Severe anemia Orthostatis hypotension Severe chronic pain narcotic dependent Goals for Patient: [place] Patient Data-Allergies,Ht & Wt Patient Allergies: Coded Allergies: No Known Drug Allergies (Unverified , 12/04/19) Home Health Need/Face to Face Date of Face to Face: Dec 16, 2019 Clinical Findings: Generalized weakness and fatigue, Instability, Muscle weakness, Non or partial weight bearing, Pain with ambulation, Unsteady gait I have seen Pt [id number]: Yes Discharged To: Home Diagnosis/Conditions: Left feumr fracture Severe anemia Orthostatis hypotension Severe chronic pain narcotic dependent Patient is Homebound due to: Gurinder fall risk due to instabilty, Muscle weakness, Pain w/ambulation Homebound Status Due to the above stated illness, injury or surgical procedure (medical condition or diagnosis) and associated clinical findings, the patient is homebound because of his/her inability to leave home except with aid of a supportive device and/or person AND leaving the home requires a considerable and taxing effort or is medically contraindicated. Pt req the following assistanc: [facility] Nursing Orders Home Health Services Order: Nursing Services (BP monitoring, incision monitoring), Typists Supervisor-Evaluate & Treat, Physical Therapy-Evaluate & [facility] Start Date: Dec 06, 2019 Certify Stmt I certify that this patient is under my care and that I, a nurse practitioner or a physician; a administrative support assistant working with me, had a face to face encounter that - meets the physician face to face encounter requirements with this patient as dated. NORIS LESTER DO Dec 16, 2019 11:21
[2019-12-16 13:10] VITALS: BP 151/81
--- NOTE | 2019-12-16 13:16 | NUR ---
CM/SS DISCHARGE PLANNING, Final HHC: Finalize tomorrow with [facility] for RN, PT, OT. DME: Referral completed with [facility] in [place] for FWW. Also included Hip Kit and Tub Transfer Bench which will likely not be covered. Patient/spouse are aware these will be private pay, hopeful agency can carry tab until patient's check arrives later this month. Rx: Spoke with [facility], all of patient's Rx was covered with minimal co-pays in the $1-2 range. Spouse will come for patient tomorrow, will coordinate with Unit RN for timeframe. Spouse to have patient's FWW with her for mobility safety. Addendum: 12/16/19 at 1509 by MARTÍN DURHAM Updated patient. Spouse plans olive picker at 1300 tomorrow, Monday12/17/19.
--- NOTE | 2019-12-16 14:42 | Physical Therapy Daily Note ---
PT Daily Note-Current Subjective Pt. in bedside chair, agrees to therapy. States his L leg "feels stiff" after sitting. Mental Status Patient Orientation: Person, Place, Time, Situation Transfers SCALE: Activities may be completed with or without assistive devices. 7-Dnzbfnqggx-dfvtbpc completes the activity by him/herself with no assistance from a helper. 5-Set-up or Clean-up Assistance-helper sets up or cleans up; patient completes activity. [place]raim assists only prior to or following the activity. 4-Supervision or Touching Assistance-helper provides verbal cues and/or touching/steadying and/or contact guard assistance as patient completes activity. Assistance may be provided throughout the activity or intermittently. 3-Partial/Moderate Assistance-helper does LESS THAN HALF the effort. Ephraim lifts, holds or supports trunk or limbs, but provides less than half the effort. 2-Substantial/Maximal Assistance-helper does MORE THAN HALF the effort. [place] lifts or holds trunk or limbs and provides more than half the effort. 7-Sdgxowkow-jsysjc does ALL the effort. Patient does none of the effort to complete the activity. Or, the assistance of 2 or more helpers is required for the patient to complete the activity. If activity was not attempted, code reason: 7-Patient Refused. 9-Not Applicable-not attempted and the patient did not perform the activity before the current illness, exacerbation or injury. 10-Not Attempted due to Environmental Limitations-(lack of equipment, weather restraints, etc.). 88-Not Attempted due to Medical Conditions or Safety Concerns. Sit to Stand (QC): 6 Weight Bearing Right Lower Extremity: Right Full Weight Bearing Left Lower Extremity: Left Touch Toe Bearing Gait Training Does the Patient Walk?: Yes Distance: 2 x 50 ft, x 125 ft Walk 10 feet (QC): 4 Gait Persons Needed: 1 Gait Assistive Device: FWW Pt. took his hands off the walker briefly during ambulation to pull up his pants and lost his balance to the right. Pt. landed on floor of car simulator. Exercises Seated Therapy Exercises: Ankle pumps, Long arc quads, Hamstring Curls, Hip abd/add Seated Reps: 20 Treatments LE exercise, gait Assessment Current Status: Good Progress, Fair Progress Pt. had 1 loss of balance during gait and unable to regain balance. Pt. was uninjured and able to resume treatment. Pt. returned to room post session, on toilet and instructed to use call light for assistance from nursing staff. Nurse aide notified of patient position. PT Short Term Goals Short Term Goals Time Frame: Dec 12, 2019 Roll Left & Right: 3 Sit to lyin Lying to sitting on side of be: 3 Sit to stand: 3 Chair/ulw-rm-waqis transfer: 3 Walk 10 feet: 3 PT Associate Professor Of Violin Goals Fpc Goals PT Fpc Goals Time Frame: Dec 26, 2019 Roll Left & Right (QC): 4 Sit to Lying (QC): 3 (German) Lying-Sitting on Side/Bed(QC): 3 (German) Sit to Stand (QC): 3 (German) Chair/Ion-pb-Wrgab Xfer(QC): 3 (German) Toilet Transfer (QC): 3 Car Transfer (QC): 3 (German) Does the Patient Walk: No and Walking Goal IS indicated Walk 10 feet (QC): 3 (German) Walk 50ft with 2 Turns (QC): 3 (German) Walk 150 ft (QC): 88 Walking 10ft on Uneven Surface: 88 1 Step (curb) (QC): 88 4 Steps (QC): 88 12 Steps (QC): 88 Picking up an Object (QC): 88 Does the Pt use WC or Scooter?: Yes Wheel 50 feet with 2 turns (QC: 6 Type: Manual Wheel 150 feet: 6 Type: Manual PT Plan Treatment/Plan Treatment Plan: Continue Plan of Care Treatment Plan: Bed Mobility, Education, Functional Activity Swetha, Functional Strength, Group Therapy, Gait, Safety, Therapeutic Exercise, Transfers Treatment Duration: Dec 26, 2019 Frequency: At least 5 of 7 days/Wk (IRF) Estimated Hrs Per Day: 1.5 hours per day Patient and/or Family Agrees t: Yes Time/GCodes Time In: 1300 Time Out: 1330 Total Billed Treatment Time: 30 Total Billed Treatment 1, GT 15', Ex 15' DEJA JADE PT Dec 16, 2019 14:42
[2019-12-16 16:20] VITALS: BP 131/70
[2019-12-16] MEDS: ENOXAPARIN 40 MG/0.4 ML (LOVENOX) SYR SC SCH (16:30)
[2019-12-17] MEDS: ZOLPIDEM 5 MG (AMBIEN) TAB PO PRN (00:07)
[2019-12-17] MEDS: oxyCODONE/APAP 10/325MG (PERCOCET 10) TABLET PO SCH ×4 (00:07→12:29)
[2019-12-17 06:00] VITALS: BP 133/72
[2019-12-17] MEDS: inSUlin ASPART (NovoLOG) 1 UNIT/0.01 ML (CHARGE PER UNIT) SC SCH ×2 (06:13→11:12)
[2019-12-17] MEDS: CATHETER FLUSH 10 ML SYR IV SCH (06:16)
[2019-12-17] MEDS: GLIMEPIRIDE 1 MG (AMARYL) TAB PO SCH (06:16)
[2019-12-17] MEDS: FLUDROCORTISONE 0.1 MG (FLORINEF) TAB PO SCH (06:16)
[2019-12-17] MEDS: DOCUSATE SODIUM 100 MG (COLACE) CAP PO SCH (09:10)
[2019-12-17] MEDS: polyethylene glycoL POWDER 17 GM (MIRALAX) PACK PO SCH (09:10)
[2019-12-17] MEDS: SENNA W/DOCUSATE (SENOKOT S) TABLET PO SCH (09:11)
--- NOTE | 2019-12-17 09:24 | NUR ---
CALL FROM DR. DOMÍNGUEZ'S RN WITH ORDERS TO REMOVE LEFT HIP CESARIO TODAY BEFORE DC HOME. NEW F/U APPOINTMENT SCHEDULED FOR 01/09/20 AT 10:45 AM. INCISIONS ARE WELL APPROXIMATED. NO REDNESS OR DRAINAGE NOTED. 14 CESARIO REMOVED PER ORDERS. MASTISOL APPLIED TO SURROUNDING TISSUE AND STERI STRIPS APPLIED. PATIENT TOLERATED WELL.
--- NOTE | 2019-12-17 10:22 | Discharge Summary ---
Diagnosis/Chief Complaint Date of Admission Dec 04, 2019 at 21:17 Date of Discharge Discharge Date: Dec 17, 2019 Discharge Diagnosis Assessment: Left femur fracture POD # 15 Post op anemia from acute blood loss Orthostatic hypotension requiring 500cc bolus IVF NS day after admit now holding ACEi and stopped the Oxycontin and started Florinef and SYDNEY and RONA's on resulting in resolving the hypotension DM insulin dependency Chronic pain Narcotic dependent Chronic DJD back pain Thin build Poor reserve Chronic debility Frail status Poor nutrition Iron deficiency severe requiring IV Venofer will complete while in IRF Plan: Monitor labs Venofer Midline placement Monitor diabetes IRF protocol SYDNEY with RONA's if he can tolerate correction placement if he fails at home DC Monday all orders placed (1) Closed left femoral fracture Qualifiers: Qualified Codes: S72.92XA - Unspecified fracture of left femur, initial encounter for closed fracture (2) Frailty (3) Flat affect (4) Chronic pain (5) Narcotic dependence (6) Diabetes mellitus with insulin therapy (7) Thin build (8) Orthostasis (9) Postoperative anemia due to acute blood loss (10) Iron deficiency Discharge Summary Discharge Physical Examination Allergies: Coded Allergies: No Known Drug Allergies (Unverified , 12/04/19) Vitals & I&Os Vital Signs Date Time Temp Pulse Resp B/P (MAP) Pulse Ox O2 Delivery O2 Flow Rate FiO2 12/17/19 14:57 36.3 80 18 133/72 98 Room Air General Appearance: Alert, Oriented X3, Cooperative Respiratory: Clear to Auscultation Cardiovascular: Regular Rate Neuro: Normal Speech, Strength at 5/5 X4 Ext Psych/Mental Status: Mental Status NL Hospital Course Was the Problem List Reviewed?: Yes Hospital course: patient had a lengthy 14 days course in IRF after admitted from [facility] from left femur fracture. Patient had a long history of severe chronic back pain narcotic dependent and confirmed with I spoke to Dr Yassine Lantigua in [place], [place] his PCP. Patient had severe orthostasis delaying participation until that was resolved with Florinef and DC Oxycontin and completing iron infusions. Patient recovered well and narcotic bowel was resolved with laxatives. Oxycodone Q4hrs was required although it was a large amount of narcotics he required this much in order to remain comfortable and regain function in order to DC home on HH with his . Labs (last 24 hrs) Laboratory Tests 4/1/20 21:37: Glucometer 270H 12/05/19 05:30: Glucometer 78 12/05/19 05:32: White Blood Count 4.9, Red Blood Count 2.46L, Hemoglobin 7.8L, Hematocrit 23L, Mean Corpuscular Volume 94, Mean Corpuscular Hemoglobin 32, Mean Corpuscular Hemoglobin Concent 34, Red Cell Distribution Width 11.8, Platelet Count 215, Mean Platelet Volume 9.1, Neutrophils (%) (Auto) 60, Lymphocytes (%) (Auto) 23, Monocytes (%) (Auto) 11, Eosinophils (%) (Auto) 5, Basophils (%) (Auto) 0, Neutrophils # (Auto) 2.9, Lymphocytes # (Auto) 1.1, Monocytes # (Auto) 0.6, Eosinophils # (Auto) 0.3, Basophils # (Auto) 0.0, Sodium Level 136, Potassium Level 3.8, Chloride Level 106, Carbon Dioxide Level 21, Anion Gap 9, Blood Urea Nitrogen 24H, Creatinine 0.81, Estimat Glomerular Filtration Rate > 60, BUN/Creatinine Ratio 30, Glucose Level 73, Mean Blood Glucose 200H, Hemoglobin A1c 8.6H, Calcium Level 8.1L, Corrected Calcium 8.8, Iron Level 19L, Total Bilirubin 0.8, Aspartate Amino Transf (AST/SGOT) 25, Alanine Aminotransferase (ALT/SGPT) 12, Alkaline Phosphatase 65, Total Protein 5.3L, Albumin 3.1L, Thyr oid Stimulating Hormone (TSH) 1.08 12/05/19 10:53: Glucometer 168H 12/05/19 15:45: Glucometer 178H 12/05/19 20:21: Glucometer 133H 12/06/19 05:07: Glucometer 98 12/06/19 05:26: White Blood Count 5.1, Red Blood Count 2.41L, Hemoglobin 7.7L, Hematocrit 23L, Mean Corpuscular Volume 95, Mean Corpuscular Hemoglobin 32, Mean Corpuscular Hemoglobin Concent 34, Red Cell Distribution Width 11.7, Platelet Count 227, Mean Platelet Volume 8.7, Neutrophils (%) (Auto) 72, Lymphocytes (%) (Auto) 12, Monocytes (%) (Auto) 10, Eosinophils (%) (Auto) 5, Basophils (%) (Auto) 1, Neutrophils # (Auto) 3.7, Lymphocytes # (Auto) 0.6L, Monocytes # (Auto) 0.5, Eosinophils # (Auto) 0.3, Basophils # (Auto) 0.0, Sodium Level 136, Potassium Level 3.7, Chloride Level 105, Carbon Dioxide Level 22, Anion Gap 9, Blood Urea Nitrogen 19H, Creatinine 0.76, Estimat Glomerular Filtration Rate > 60, BUN/Creatinine Ratio 25, Glucose Level 88, Calcium Level 7.9L, Corrected Calcium 8.7, Total Bilirubin 0.7, Aspartate Amino Transf (AST/SGOT) 44H, Alanine Aminotransferase (ALT/SGPT) 20, Alkaline Phosphatase 91, Total Protein 5.2L, Albumin 3.0L 12/06/19 11:05: Glucometer 175H 12/06/19 15:47: Glucometer 203H 12/06/19 20:13: Glucometer 211H 12/07/19 05:26: Glucometer 130H 12/07/19 10:47: Glucometer 231H 12/07/19 16:44: Glucometer 187H 12/07/19 20:06: Glucometer 141H 12/08/19 05:22: Glucometer 130H 12/08/19 10:30: Glucometer 170H 12/08/19 15:44: Glucometer 193H 12/08/19 20:18: Glucometer 180H 12/09/19 04:30: Glucometer 143H 12/09/19 05:30: White Blood Count 4.8, Red Blood Count 2.48L, Hemoglobin 7.8L, Hematocrit 24L, Mean Corpuscular Volume 96, Mean Corpuscular Hemoglobin 31, Mean Corpuscular Hemoglobin Concent 33, Red Cell Distribution Width 12.2, Platelet Count 330, Mean Platelet Volume 7.8, Neutrophils (%) (Auto) 63, Lymphocytes (%) (Auto) 19, Monocytes (%) (Auto) 12, Eosinophils (%) (Auto) 6, Basophils (%) (Auto) 0, Neutrophils # (Auto) 3.0, Lymphocytes # (Auto) 0.9L, Monocytes # (Auto) 0.6, Eosinophils # (Auto) 0.3, Basophils # (Auto) 0.0, Sodium Level 135, Potassium Level 4.2, Chloride Level 103, Carbon Dioxide Level 23, Anion Gap 9, Blood Urea Nitrogen 19H, Creatinine 0.80, Estimat Glomerular Filtration Rate > 60, BUN/Creatinine Ratio 24, Glucose Level 125H, Calcium Level 8.3L, Corrected Calcium 9.1, Total Bilirubin 1.0, Aspartate Amino Transf (AST/SGOT) 33, Alanine Aminotransferase (ALT/SGPT) 22, Alkaline Phosphatase 147H, Total Protein 5.2L, Albumin 3.0L 12/09/19 09:59: Glucometer 183H 12/09/19 16:07: Glucometer 204H 12/09/19 20:12: Glucometer 203H 12/10/19 05:42: Glucometer 93 12/10/19 10:43: Glucometer 213H 12/10/19 15:52: Glucometer 141H 12/10/19 20:04: Glucometer 184H 12/11/19 05:32: Glucometer 140H 12/11/19 10:57: Glucometer 213H 12/11/19 15:18: Glucometer 166H 12/11/19 20:28: Glucometer 212H 12/12/19 05:05: Glucometer 107 12/12/19 10:57: Glucometer 141H 12/12/19 15:30: Glucometer 221H 12/12/19 20:18: Glucometer 219H 12/13/19 05:22: Glucometer 110 12/13/19 10:57: Glucometer 189H 12/13/19 15:39: Glucometer 190H 12/13/19 20:26: Glucometer 218H 12/14/19 06:00: Glucometer 145H 12/14/19 10:58: Glucometer 170H 12/14/19 15:23: Glucometer 265H 12/14/19 19:59: Glucometer 157H 12/15/19 05:03: Glucometer 128H 12/15/19 11:27: Glucometer 191H 12/15/19 15:26: Glucometer 181H 12/15/19 20:23: Glucometer 210H 12/16/19 06:00: White Blood Count 6.5, Red Blood Count 2.97L, Hemoglobin 9.4L, Hematocrit 30L, Mean Corpuscular Volume 100H, Mean Corpuscular Hemoglobin 32, Mean Corpuscular Hemoglobin Concent 32, Red Cell Distribution Width 14.3, Platelet Count 617H, Mean Platelet Volume 7.9, Neutrophils (%) (Auto) 63, Lymphocytes (%) (Auto) 19, Monocytes (%) (Auto) 11, Eosinophils (%) (Auto) 6, Basophils (%) (Auto) 1, Neutrophils # (Auto) 4.1, Lymphocytes # (Auto) 1.2, Monocytes # (Auto) 0.7, Eosinophils # (Auto) 0.4H, Basophils # (Auto) 0.0, Sodium Level 138, Potassium Level 4.2, Chloride Level 104, Carbon Dioxide Level 26, Anion Gap 8, Blood Urea Nitrogen 16, Creatinine 0.74, Estimat Glomerular Filtration Rate > 60, BUN/Creatinine Ratio 22, Glucose Level 90, Calcium Level 8.6, Corrected Calcium 9.2, Total Bilirubin 0.6, Aspartate Amino Transf (AST/SGOT) 20, Alanine Aminotransferase (ALT/SGPT) 15, Alkaline Phosphatase 170H, Total Protein 6.0L, Albumin 3.2 12/16/19 06:34: Glucometer 102 12/16/19 10:59: Glucometer 157H 12/16/19 15:28: Glucometer 254H 12/16/19 20:07: Glucometer 158H 12/17/19 04:29: Glucometer 130H 12/17/19 10:55: Glucometer 173H Pending Labs Laboratory Tests 12/04/19 21:37: Glucometer 270 12/05/19 05:30: Glucometer 78 12/05/19 05:32: White Blood Count 4.9, Red Blood Count 2.46, Hemoglobin 7.8, Hematocrit 23, Mean Corpuscular Volume 94, Mean Corpuscular Hemoglobin 32, Mean Corpuscular Hemoglobin Concent 34, Red Cell Distribution Width 11.8, Platelet Count 215, Mean Platelet Volume 9.1, Neutrophils (%) (Auto) 60, Lymphocytes (%) (Auto) 23, Monocytes (%) (Auto) 11, Eosinophils (%) (Auto) 5, Basophils (%) (Auto) 0, Neutrophils # (Auto) 2.9, Lymphocytes # (Auto) 1.1, Monocytes # (Auto) 0.6, Eosinophils # (Auto) 0.3, Basophils # (Auto) 0.0, Sodium Level 136, Potassium Level 3.8, Chloride Level 106, Carbon Dioxide Level 21, Anion Gap 9, Blood Urea Nitrogen 24, Creatinine 0.81, Estimat Glomerular Filtration Rate > 60, BUN/Creatinine Ratio 30, Glucose Level 73, Mean Blood Glucose 200, Hemoglobin A1c 8.6, Calcium Level 8.1, Corrected Calcium 8.8, Iron Level 19, Total Bilirubin 0.8, Aspartate Amino Transf (AST/SGOT) 25, Alanine Aminotransferase (ALT/SGPT) 12, Alkaline Phosphatase 65, Total Protein 5.3, Albumin 3.1, Thyroid Stimulating Hormone (TSH) 1.08 12/05/19 10:53: Glucometer 168 12/05/19 15:45: Glucometer 178 12/05/19 20:21: Glucometer 133 12/06/19 05:07: Glucometer 98 12/06/19 05:26: White Blood Count 5.1, Red Blood Count 2.41, Hemoglobin 7.7, Hematocrit 23, Mean Corpuscular Volume 95, Mean Corpuscular Hemoglobin 32, Mean Corpuscular Hemoglobin Concent 34, Red Cell Distribution Width 11.7, Platelet Count 227, Mean Platelet Volume 8.7, Neutrophils (%) (Auto) 72, Lymphocytes (%) (Auto) 12, Monocytes (%) (Auto) 10, Eosinophils (%) (Auto) 5, Basophils (%) (Auto) 1, Neutrophils # (Auto) 3.7, Lymphocytes # (Auto) 0.6, Monocytes # (Auto) 0.5, Eosinophils # (Auto) 0.3, Basophils # (Auto) 0.0, Sodium Level 136, Potassium Level 3.7, Chloride Level 105, Carbon Dioxide Level 22, Anion Gap 9, Blood Urea Nitrogen 19, Creatinine 0.76, Estimat Glomerular Filtration Rate > 60, BUN/Creatinine Ratio 25, Glucose Level 88, Calcium Level 7.9, Corrected Calcium 8.7, Total Bilirubin 0.7, Aspartate Amino Transf (AST/SGOT) 44, Alanine Aminotransferase (ALT/SGPT) 20, Alkaline Phosphatase 91, Total Protein 5.2, Albumin 3.0 12/06/19 11:05: Glucometer 175 12/06/19 15:47: Glucometer 203 12/06/19 20:13: Glucometer 211 12/07/19 05:26: Glucometer 130 12/07/19 10:47: Glucometer 231 12/07/19 16:44: Glucometer 187 12/07/19 20:06: Glucometer 141 12/08/19 05:22: Glucometer 130 12/08/19 10:30: Glucometer 170 12/08/19 15:44: Glucometer 193 12/08/19 20:18: Glucometer 180 12/09/19 04:30: Glucometer 143 12/09/19 05:30: White Blood Count 4.8, Red Blood Count 2.48, Hemoglobin 7.8, Hematocrit 24, Mean Corpuscular Volume 96, Mean Corpuscular Hemoglobin 31, Mean Corpuscular Hemoglobin Concent 33, Red Cell Distribution Width 12.2, Platelet Count 330, Mean Platelet Volume 7.8, Neutrophils (%) (Auto) 63, Lymphocytes (%) (Auto) 19, Monocytes (%) (Auto) 12, Eosinophils (%) (Auto) 6, Basophils (%) (Auto) 0, Neutrophils # (Auto) 3.0, Lymphocytes # (Auto) 0.9, Monocytes # (Auto) 0.6, E osinophils # (Auto) 0.3, Basophils # (Auto) 0.0, Sodium Level 135, Potassium Level 4.2, Chloride Level 103, Carbon Dioxide Level 23, Anion Gap 9, Blood Urea Nitrogen 19, Creatinine 0.80, Estimat Glomerular Filtration Rate > 60, BUN/Creatinine Ratio 24, Glucose Level 125, Calcium Level 8.3, Corrected Calcium 9.1, Total Bilirubin 1.0, Aspartate Amino Transf (AST/SGOT) 33, Alanine Ami notransferase (ALT/SGPT) 22, Alkaline Phosphatase 147, Total Protein 5.2, Albumin 3.0 12/09/19 09:59: Glucometer 183 12/09/19 16:07: Glucometer 204 12/09/19 20:12: Glucometer 203 12/10/19 05:42: Glucometer 93 12/10/19 10:43: Glucometer 213 12/10/19 15:52: Glucometer 141 12/10/19 20:04: Glucometer 184 12/11/19 05:32: Glucometer 140 12/11/19 10:57: Glucometer 213 12/11/19 15:18: Glucometer 166 12/11/19 20:28: Glucometer 212 12/12/19 05:05: Glucometer 107 12/12/19 10:57: Glucometer 141 12/12/19 15:30: Glucometer 221 12/12/19 20:18: Glucometer 219 12/13/19 05:22: Glucometer 110 12/13/19 10:57: Glucometer 189 12/13/19 15:39: Glucometer 190 12/13/19 20:26: Glucometer 218 12/14/19 06:00: Glucometer 145 12/14/19 10:58: Glucometer 170 12/14/19 15:23: Glucometer 265 12/14/19 19:59: Glucometer 157 12/15/19 05:03: Glucometer 128 12/15/19 11:27: Glucometer 191 12/15/19 15:26: Glucometer 181 12/15/19 20:23: Glucometer 210 12/16/19 06:00: White Blood Count 6.5, Red Blood Count 2.97, Hemoglobin 9.4, Hematocrit 30, Mean Corpuscular Volume 100, Mean Corpuscular Hemoglobin 32, Mean Corpuscular Hemoglobin Concent 32, Red Cell Distribution Width 14.3, Platelet Count 617, Mean Platelet Volume 7.9, Neutrophils (%) (Auto) 63, Lymphocytes (%) (Auto) 19, Monocytes (%) (Auto) 11, Eosinophils (%) (Auto) 6, Basophils (%) (Auto) 1, Neutrophils # (Auto) 4.1, Lymphocytes # (Auto) 1.2, Monocytes # (Auto) 0.7, Eosinophils # (Auto) 0.4, Basophils # (Auto) 0.0, Sodium Level 138, Potassium Level 4.2, Chloride Level 104, Carbon Dioxide Level 26, Anion Gap 8, Blood Urea Nitrogen 16, Creatinine 0.74, Estimat Glomerular Filtration Rate > 60, B UN/Creatinine Ratio 22, Glucose Level 90, Calcium Level 8.6, Corrected Calcium 9.2, Total Bilirubin 0.6, Aspartate Amino Transf (AST/SGOT) 20, Alanine Aminotransferase (ALT/SGPT) 15, Alkaline Phosphatase 170, Total Protein 6.0, Albumin 3.2 12/16/19 06:34: Glucometer 102 12/16/19 10:59: Glucometer 157 12/16/19 15:28: Glucometer 254 12/16/19 20:07: Glucometer 158 12/17/19 04:29: Glucometer 130 12/17/19 10:55: Glucometer 173 Discharge Home Medications: Active Scripts Active Humulin 70/30 Kwikpen (Insulin NPH Hum/Reg Insulin Hm) 100 Unit/1 Ml Insuln.pen 12 Unit SQ BID WITH MEALS 30 Days Fludrocortisone Acetate 0.1 Mg Tab 0.1 Mg PO DAILY@0600 Dok (Docusate Sodium) 100 Mg Capsule 100 Mg PO BID Senna-Time S Tablet (Sennosides/Docusate Sodium) 1 Each Tablet 1 Ea PO BID Percocet 10-325 mg Tablet (Oxycodone HCl/Acetaminophen) 1 Each Tablet 1 Tab PO Q4HR Enoxaparin Sodium 40 Mg/0.4 Ml Syringe 40 Mg SC Q24H Reported Atorvastatin Calcium 10 Mg Tablet 10 Mg PO HS Ambien (Zolpidem Tartrate) 10 Mg Tablet 10 Mg PO HS PRN Glimepiride 1 Mg Tablet 1 Mg PO DAILY W/ BREAKFAST Instructions to patient/family Please see electronic discharge instructions given to patient. Diagnosis/Problems Diagnosis/Problems (1) Closed left femoral fracture Qualifiers: Qualified Codes: S72.92XA - Unspecified fracture of left femur, initial encounter for closed fracture (2) Frailty (3) Flat affect (4) Chronic pain (5) Narcotic dependence (6) Diabetes mellitus with insulin therapy (7) Thin build (8) Orthostasis (9) Postoperative anemia due to acute blood loss (10) Iron deficiency Clinical Quality Measures DVT/VTE Risk/Contraindication: Risk Factor Score Per Nursin RFS Level Per Nursing on Admit: 4+=Very High NORIS LESTER DO Dec 17, 2019 10:22
--- NOTE | 2019-12-17 12:46 | NUR ---
CM/SS DISCHARGE Patient discharge home with spouse as planned, picking up at 1300. HHC: Finalized with [facility]. Confirmed with agency that continuum of care information was received. DME: Spouse has patient's FWW and will bring with her for patient sweet pickled fruit maker. Per Cooper at [facility] yesterday, the tub bath bench and hip kit will be private pay. Patient very pleased to be returning home today! Unit RN aware of plans and timeline.
--- NOTE | 2019-12-17 12:50 | NUR ---
GENET AVERY demonstrates understanding of discharge instructions and accurately returns instructions upon questioning. Copy of Post-Discharge Instructions given to patient. GENET AVERY is able to manage continuing needs after discharge. Patients belongings returned to patient. Patient discharged from 227-1 on 12/17/19 at 1250. GENET AVERY left floor via wheel chair, accompanied by staff to private vehicle.
--- NOTE | 2019-12-17 12:52 | Therapy Team Discharge Summary ---
Therapy Discharge Summary Discharge Recommendations Date of Discharge Therapy D/C Recommendations: Physical Therapy Home Care Physical Therapy Pt. has been seen for PT in acute rehab following L hip fracture and IM nail. We have been working to restore mobility and strength for return home with spouse. At time of admission, patient was max A/dependent with transfers and unable to ambulate. Currently, patient is (I) with all transfers except sit to supine in which he requires min A with L LE. Pt. is ambulating with FWW x 150 ft while maintaining TTWB on L. Pt. is unable to safely complete steps due to TTWB on L but has a ramp to enter home. Pt. has met all goals for transfers and ambulation. Pt. would benefit from home health PT to further progress strength and mobility following discharge from ARU. D/C ARU PT this date to home with spouse. Occupational Therapy Decreased Activ Tolerance, Decreased UE Strength, Impaired I ADL's, Impaired Self-Care Skills PT Lotus Notes Administrator Goals Residential Goals PT Lotus Notes Administrator Goals Time Frame: Dec 26, 2019 Roll Left to Right (QC): 4 Sit to Lying (QC): 3 (German) Lying-Sitting on Side/Bed(QC): 3 (German) Sit to Stand (QC): 3 (German) Chair/Bcd-vv-Wauiv Xfer(QC): 3 (German) Car Transfer (QC): 3 (German) Does the Patient Walk: No and Walking Goal IS indicated Walk 10 feet (QC): 3 (German) Walk 10ft-Uneven Surface(QC): 88 Walk 50ft with 2 Turns (QC): 3 (German) Walk 150 ft (QC): 88 Does the Pt use WC or Scooter?: Yes Wheel 50 feet with 2 turns (QC: 6 1 Step (curb) (QC): 88 4 Steps (QC): 88 12 Steps (QC): 88 Picking up an Object (QC): 88 OT Residential Goals Residential Goals Time Frame: Jan 02, 2020 Eating (QC): 6 (met) Oral Hygiene (QC): 6 (met) Shower/Bathe Self (QC): 6 (not met, set up ) Upper Body Dressing (QC): 6 (met) Lower Body Dressing (QC): 6 (met) On/Off Footwear (QC): 6 (not met, min A with tedhose) Toileting Hygiene (QC): 6 (met) Toilet/Commode Transfer (QC): 3 Additional Goals: 1-Demonstrate ADL Tasks, 2-Verbalize Understanding, 3- ImproveStrength/Swetha 1=Demonstrate adherence to instructed precautions during ADL tasks. 2=Patient will verbalize/demonstrate understanding of assistive devices/modifications for ADL. 3=Patient will improve strength/tolerance for activity to enable patient to perform ADL's. DEJA JADE PT Dec 17, 2019 12:52
--- NOTE | 2019-12-17 14:17 | Therapy Team Discharge Summary ---
Therapy Discharge Summary Discharge Recommendations Date of Discharge Therapy D/C Recommendations: Occupational Therapy Home Care, Physical Therapy Home Care Occupational Therapy Pt admitted to ARU s/p L IM nail. At admission pt required set up assist with eating and oral hygiene, max A showering, total assist lower body dressing/footwear and toilet hygiene. OT txs with focus on increasing independence and safety with ADLs, education on strengthening HEP, education on AE, increasing UE strength and functional endurance. At discharge pt required set up assistance with showering, Min A with footwear due to pt requiring assistance with TEDhose, and pt was independent with all other ADLs. AE recommendations include a hip kit and a bath bench. Pt discharged from facility on this date, discharge from OT services at this time. Pt to return home with home health OT recommended. Decreased Activ Tolerance, Decreased UE Strength, Impaired I ADL's, Impaired Self-Care Skills PT [facility] Goals Supervisor Labor Gang Goals PT [facility] Goals Time Frame: Dec 26, 2019 Roll Left to Right (QC): 4 Sit to Lying (QC): 3 (German) Lying-Sitting on Side/Bed(QC): 3 (German) Sit to Stand (QC): 3 (German) Chair/Umr-ry-Hpjuw Xfer(QC): 3 (German) Car Transfer (QC): 3 (German) Does the Patient Walk: No and Walking Goal IS indicated Walk 10 feet (QC): 3 (German) Walk 10ft-Uneven Surface(QC): 88 Walk 50ft with 2 Turns (QC): 3 (German) Walk 150 ft (QC): 88 Does the Pt use WC or Scooter?: Yes Wheel 50 feet with 2 turns (QC: 6 1 Step (curb) (QC): 88 4 Steps (QC): 88 12 Steps (QC): 88 Picking up an Object (QC): 88 OT [facility] Goals [facility] Goals Time Frame: Jan 02, 2020 Eating (QC): 6 (met) Oral Hygiene (QC): 6 (met) Shower/Bathe Self (QC): 6 (not met, set up ) Upper Body Dressing (QC): 6 (met) Lower Body Dressing (QC): 6 (met) On/Off Footwear (QC): 6 (not met, min A with tedhose) Toileting Hygiene (QC): 6 (met) Toilet/Commode Transfer (QC): 3 (met) Additional Goals: 1-Demonstrate ADL Tasks, 2-Verbalize Understanding, 3- ImproveStrength/Swetha 1=Demonstrate adherence to instructed precautions during ADL tasks. 2=Patient will verbalize/demonstrate understanding of assistive devices/modifications for ADL. 3=Patient will improve strength/tolerance for activity to enable patient to perform ADL's. DIANA GARCIA OT Dec 17, 2019 14:17
[2019-12-17 14:57] VITALS: BP 133/72
== END 2019-12-17 12:50 | disposition home health service (06) | DRG 560 ==
PROVIDERS: ADMIT Internal Medicine; ATTEND Internal Medicine
DX: S72.22XD Displaced subtrochanteric fracture of left femur, subsequent encounter for closed fracture with routine healing (principal); E11.65 Type 2 diabetes mellitus with hyperglycemia; D62 Acute posthemorrhagic anemia; E61.1 Iron deficiency; I10 Essential (primary) hypertension; G89.4 Chronic pain syndrome; I95.2 Hypotension due to drugs; M47.9 Spondylosis, unspecified; E78.5 Hyperlipidemia, unspecified; Z79.4 Long term (current) use of insulin; Z87.891 Personal history of nicotine dependence; Z90.49 Acquired absence of other specified parts of digestive tract; T40.605A Adverse effect of unspecified narcotics, initial encounter; W19.XXXD Unspecified fall, subsequent encounter
CPT/HCPCS: 36415; 76937; 80053; 82962; 83036; 83540; 84443; 85025; 94664; 94760